=== PATIENT | female | born 1990 | race Caucasian/White ===

== ENCOUNTER → 2019-06-14 11:15 | Outpatient (CLI) | payer MEDICAID, SELFPAY ==
[2014-12-16 13:32] VITALS: BMI 33.0
[2019-06-16 03:09] LABS: AFP MoM Value 0.87 (.); AFP Value-EIA 21.4 ng/mL (.); Comment Report (.); DIA MoM Value 1.01 (.); DIA Value-EIA 143.87 pg/mL (.); DSR (By Age) 561 (.); DSR (Second Trimester) 5636 (.); Gestat. Age Based On As provided (.); Gestational Age 15.4 WEEKS (.); Insulin Dep Diabetes No (.); Maternal Age At EDD 31.6 yr (.); hCG MoM 0.66 (.); hCG Value 26588 mIU/mL (.)
== END ==
PROVIDERS: Family Provider Obstetrics & Gynecology; PCP Obstetrics & Gynecology; Visit Provider Obstetrics & Gynecology
DX: Z34.82 Encounter for supervision of other normal pregnancy, second trimester (principal)
CPT/HCPCS: 82105; 82677; 84702

== ENCOUNTER → 2019-09-13 10:23 | Outpatient (CLI) | payer MEDICAID, SELFPAY ==
[2019-09-13 11:09] LABS: Hematocrit 35.1 % (37-47); Hemoglobin 11.5 g/dL (12.0-15.0); Mean Corp Hgb Conc 32.8 g/dL (32-36); Mean Corpuscular Volume 88.6 fL (81-99); Mean Platelet Vol. 9.4 fl (6.2-12.0); Platelet Count 321 K/mm3 (150-450); RBC Distribution Width CV 13.2 % (11.6-14.6); RBC Distribution Width SD 43.1 fl (35.1-43.9); Red Blood Count 3.96 M/mm3 (4.2-5.4); White Blood Count 11.1 K/mm3 (4.4-11.0)
[2019-09-13 11:30] LABS: Glucose Challenge Gest 1H 50g 133 mg/dL (70-140); T4 Free Direct 0.88 ng/dL (0.76-1.46)
== END ==
PROVIDERS: PCP Obstetrics & Gynecology; Visit Provider Obstetrics & Gynecology
DX: Z34.83 Encounter for supervision of other normal pregnancy, third trimester (principal)
CPT/HCPCS: 36415; 82950; 84439; 84443; 85027; 86850

== ENCOUNTER → 2019-10-04 11:40 | Outpatient (CLI) | payer MEDICAID, SELFPAY ==
[2014-12-16 13:32] VITALS: BMI 33.0
[2019-10-04 12:51] LABS: Hematocrit 33.7 % (37-47); Hemoglobin 11.2 g/dL (12.0-15.0); Mean Corp Hgb Conc 33.2 g/dL (32-36); Mean Corpuscular Hgb 29.2 pg (27.0-32.0); Mean Corpuscular Volume 87.8 fL (81-99); Mean Platelet Vol. 9.3 fl (6.2-12.0); Platelet Count 322 K/mm3 (150-450); RBC Distribution Width SD 41.5 fl (35.1-43.9); Red Blood Count 3.84 M/mm3 (4.2-5.4); White Blood Count 11.8 K/mm3 (4.4-11.0)
[2019-10-04 13:32] LABS: ALB/GLOB Ratio 0.6 RATIO (0.9-2.4); AST(SGOT) 13 U/L (15-37); Alanine Aminotransfer ALT/SGPT 15 U/L (13-56); Albumin, Serum 2.4 g/dL (3.2-5.0); Alkaline Phosphatase 66 U/L (45-117); Anion Gap 8 (5-15); BUN 8 mg/dL (7-18); Calcium,Total 8.3 mg/dL (8.5-10.1); Chloride 110 mmol/L (98-107); EST Glomerular Filtration Rate 153 mL/min (>60); Est Glom Filt Rate - Afr Amer 185 mL/min (>60); Globulin 3.9 g/dL (2.2-4.2); Glucose 115 mg/dL (74-106); Potassium 3.6 mmol/L (3.5-5.1); Protein, Total 6.3 g/dL (6.4-8.2); Sodium Level 140 mmol/L (136-145); Uric Acid 4.4 mg/dL (2.6-6.0)
[2019-10-04 13:37] LABS: Protein, Urine (Random) 13.4 mg/dL (<11.9)
== END ==
PROVIDERS: PCP Obstetrics & Gynecology; Visit Provider Obstetrics & Gynecology
DX: O13.3 Gestational [pregnancy-induced] hypertension without significant proteinuria, third trimester (principal); Z3A.00 Weeks of gestation of pregnancy not specified
CPT/HCPCS: 36415; 80053; 82570; 84156; 84550; 85027

== ENCOUNTER → 2019-10-29 11:15 | Outpatient (CLI) | payer MEDICAID, SELFPAY ==
[2014-12-16 13:32] VITALS: BMI 33.0
== END ==
PROVIDERS: PCP Obstetrics & Gynecology; Referring Provider Obstetrics & Gynecology; Visit Provider Obstetrics & Gynecology
DX: Z36.85 Encounter for antenatal screening for Streptococcus B (principal)
CPT/HCPCS: 87081

== ENCOUNTER 2019-11-19 12:20 | Inpatient (IN) | payer MEDICAID, SELFPAY ==
[2014-12-16 13:32] VITALS: BMI 33.0
[2019-11-19] VITALS (13 sets, daily range): BP systolic 102–138; BP diastolic 38–85; PULSE 72–92; RESP 14–18; TEMP 36.1–36.8; O2SAT 95–99; BMI 42.3
[2019-11-19] MEDS: Lactated Ringers 1,000 ML 999 ML IV (13:33)
[2019-11-19 13:44] LABS: Absolute Lymphocyte Count 1.72 X10^3/uL (0.83-4.51); Absolute Neutrophil Count 8.5 X10^3/uL (2.0-7.7); Basophil# 0.02 X10^3/uL; Basophil% 0.2 % (0-1); Eosinophil# 0.08 X10^3/uL; Eosinophils% 0.7 % (0-5); Hematocrit 35.1 % (37-47); Hemoglobin 11.5 g/dL (12.0-15.0); Lymphocyte # 1.72 X10^3/ul (4.0); Lymphocyte % 15.8 % (19-41); Mean Corp Hgb Conc 32.8 g/dL (32-36); Mean Corpuscular Hgb 28.7 pg (27.0-32.0); Mean Corpuscular Volume 87.5 fL (81-99); Mean Platelet Vol. 9.3 fl (6.2-12.0); Monocyte# 0.51 X10^3/uL; Monocyte% 4.7 % (0-10); NRBC Flagged by Analyzer 0 % (0-5); Neutrophil # 8.51 X10^3/uL (2.7-7.7); Platelet Count 281 K/mm3 (150-450); RBC Distribution Width CV 13.3 % (11.6-14.6); RBC Distribution Width SD 42.2 fl (35.1-43.9); Red Blood Count 4.01 M/mm3 (4.2-5.4); White Blood Count 10.9 K/mm3 (4.4-11.0)
[2019-11-19] MEDS: Lactated Ringers 1,000 ML 150 ML IV (14:40)
[2019-11-19] MEDS: Sodium Citrate/Citric Acid 30 ML UDC PO (15:34)
[2019-11-19] MEDS: Cefazolin 2 GM in 0.9% Normal Saline 100 ML IV (15:41)
--- NOTE | 2019-11-19 15:59 | PCM.HP.OB ---
- Problem List (1) 39 weeks gestation of Status: Acute (2) Previous section Status: Acute History Date of Admission: 11/19/19 Final AMY: 11/24/19 Final AMY Source: [place] <20 weeks Gestational age: 39 Weeks and 2 Days History of this : This is a 29 year-old, G [3], P [2], at 39 2/7 weeks gestational age. Medical History: Medical History (Last Updated 11/19/19 @ 17:[address] Ora Hemphill MD) Hypothyroid E03.9 Tachycardia R00.0 EPISODIC Surgical History: Surgical History (Last Updated 11/19/19 @ 17:[address] Ora Hemphill MD) Previous section Z98.891 x 2 - 2014 Allergies Sulfa (Sulfonamide Antibiotics) Adverse Reaction (Verified 11/19/19 12:45) Swelling sulfamethoxazole [From Bactrim] Adverse Reaction (Verified 11/12/14 09:55) Nausea trimethoprim [From Bactrim] Adverse Reaction (Verified 11/12/14 09:55) Nausea Home Medications: Home Medications Vits [Prenatabs FA] 1 tablet PO DAILY 11/12/14 Levothyroxine [Synthroid] 50 mcg PO DAILY 11/19/19 Smoking Status: Never smoker Alcohol: None Number of Fetus(es): 1 NST - FHR Rate Baby A Baseline: 142 bpm History Past Pregnancies: Past Pregnancies Delivery Date GA/ Weeks Outcome Route Wt Infant Sex Labor Length Anesthesia Delivery Location FOB 06/2012 40 Living, failure to progress 7lb 12oz F 24 Epidural [facility] 10/2014 39 Living 7lb 1oz F 0 Spinal [facility] Labs: Mom's Problem List Problem Status Onset Code 39 weeks gestation of Acute Z3A.39 Previous section Acute Z98.891 Mom's Labs & Results 11/19/19 11/19/19 13:30 13:30 WBC 10.9 RBC 4.01 L Hgb 11.5 L Hct 35.1 L MCV 87.5 MCH 28.7 MCHC 32.8 RDW Std Deviation 42.2 RDW Coeff of Genaro 13.3 Plt Count 281 MPV 9.3 Immature Gran % (Auto) 0.600 Neut % (Auto) 78.0 H Lymph % (Auto) 15.8 L Kingsbury % (Auto) 4.7 Eos % (Auto) 0.7 Baso % (Auto) 0.2 Absolute Neuts (auto) 8.5 H Absolute Lymphs (auto) 1.72 Nucleated RBC % 0 Blood Type A NEGATIVE Antibody Screen NEGATIVE Course Did the patient receive Yes care? Labs Blood Type: A RH: NEGATIVE RPR/VDRL/Syphilis Nonreactive Rubella status Immune HbSAg Negative Date Done: 04/19/19 Chlamydia Negative Gonorrhea Negative HIV/AIDS Non-Reactive Group B Strep: Negative Current Obstetrical History Gestational Diabetes No Incompetent Cervix No Infertility Yes: clomid x2, letrozole x5 IUGR No Macrosomia No Hypertension/Pre-eclampsia No Placenta Previa/Abruption No PTL/PROM No Uterine anomaly No Oligohydramnios No Polyhydramnios No Multiple gestation No Past Medical History Asthma Yes: childhood Diabetes No Hypertension No Heart disease No: born with heart murmur-healed, random tachy episodes Mitral valve prolapse No Neurologic/Seizure disorder/ No Migraines Kidney disease No Liver disease No Varicosities No Clotting disorders/Hx of DVT No Thyroid Dysfunction Yes Other medical diseases No Psychiatric disorders No Major trauma No Abnormal PAP smear No Sleep apnea No Mammogram in the last 2 years No Social History Marital Status: Alleged father Kamari Hx Smoking No Smoking Status Never smoker Expected Delivery Method: Scheduled Section Number of Visits: 12 Review of Systems Constitutional: Denies: Chills, Fever Eyes: Denies: Vision Change HEENT: Denies: Head Aches, Sore Throat, Visual Changes Cardiovascular: Denies: Chest Pain Gynecological: Reports: - - Denies contractions, leaking of fluid or vaginal bleeding, Fetus is active Physical Exam Vitals: AVSS General: Alert, Oriented x3, Cooperative, No apparent distress HEENT: Atraumatic, Normocephalic Cardiovascular: Regular Rhythm Lungs: Normal air movement Abdomen: Soft, Non Tender, Non-Distended, Gravid, - - pannal edema Extremities:: No edema, Other - no calf tenderness DCS ENGINEER: Normal external genitalia Estimated gestational size: Appropriate for gestational size Presentation: Cephalic Assessment/Plan All Active Problems (Last Updated 11/19/19 @ 17:[address] Ora Hemphill MD) 39 weeks gestation of (Acute) Previous section (Acute) This is a 29 year-old, G [3], P [2], at 39 weeks gestational age. Proceed as planned with repeat section and incisional scar revision. BTL declined. Essential Procedure Criteria Procedure Essential: Yes Criteria Note: On 10/08/2019 the [facility] ([facility]) Public Order signed by [facility] Director Shruthi Carter M.D., regarding the Management of Non-Essential Surgeries and Procedures for the purpose of preserving Personal Protective Equipment (PPE) and critical hospital capacity and resources within [place] went into effect as of 10/09/2019 at 5:00PM. According to the [facility] Public Order: This action will remain in full force and effect until the State of Emergency declared by the Governor no longer exists or the Director of the [facility] rescinds or modifies this Order.. This [facility] order stated all non-essential or elective surgeries and procedures that utilize PPE should be delayed unless there is undue risk to the current or future health of a patient. After reviewing the aforementioned [facility] Public Order and the patients clinical case, I have determined that the scheduled procedure meets the criteria to go forward. Risk to Patient if Procedure Delayed: Threat to patient's life if surgery or procedure is delayed
--- NOTE | 2019-11-19 17:34 | PCM.OPRPT ---
Problem List (1) 39 weeks gestation of Status: Acute (2) Previous section Status: Acute Delivery Classification: Scheduled Final AMY: 11/24/19 Gestational age: 39 Weeks and 2 Days glueline worker: Kamila Coe Type of Anesthesia:: Spinal Date of Procedure: 11/19/19 Pre-Operative Diagnosis: 1. Prior section x 2. 2. Incisional scar stricture Post-Operative Diagnosis: 1. Prior section x 2. 2. Incisional scar stricture. 3. Intra-abdominal adhesions Indications: 29-year-old 3 para 2 admitted at 39-2/7 weeks gestational age for scheduled repeat section. Procedural risks, benefits, indications and alternatives were reviewed at length. The patient desired to proceed. She declined a bilateral tubal ligation. Indications for : Repeat Elective Description of Procedure: The patient was taken to the operating room and spinal analgesia was administered. She is placed in a dorsal supine position with left lateral tilt. Abdominal retraction system was applied and secured. Notably, the left incisional scar had retraction with indentation. The perineum and abdomen were prepped and draped in sterile fashion. And the spinal was found to be adequate. A Pfannenstiel incision was made using a scalpel and brought down to incise the subcutaneous tissue and rectus fascia at the midline. Subcutaneous tissue was bluntly dissected off the fascia laterally. The fascial incision was dissected laterally and cephalad using curved Frederick scissors. The superior leaflet of the rectus fascia was grasped using Bharti clamps and bluntly dissected and sharply dissected from the underlying rectus muscle. In a similar fashion the inferior rectus fascia was dissected from the underlying muscle. The rectus muscles were bluntly at the midline. The peritoneum was adhered to the anterior uterine serosa. These adhesions were dissected sharply and bluntly then the bladder blade was placed into the abdomen. The lower uterine segment was extremely thin palpation however without any window present. A low transverse hysterotomy was made using the [Metzenbaum scissors] to level of the membranes. The hysterotomy was extended bluntly cephalad and caudad. The membranes were then ruptured revealing clear fluid. The head was elevated and brought to the level of the hysterotomy and the delivered revealing vigorous [female] . The mouth and nares were bulb suctioned and the cord was doubly clamped and cut after 30 seconds. The infant was passed to awaiting [nursery personnel]. The placenta was [expressed] from the uterus and appeared intact on inspection. The uterus was cleared of debris. The hysterotomy was then repaired using 0 Vicryl running lock suture. Peritoneal adhesions to the right lateral uterus were further lysed sharply and blunty. A second imbricating non locked layer of 0 Vicryl was placed at the hysterectomy. Interceed was placed along the hysterotomy to prevent further adhesions. The bladder blade was removed. The anterior cul-de-sac was cleared of debris. The peritoneum and rectus muscles were reapproximated using 2-0 Vicryl running suture. The skin edge of the incision was grasped with Allis clamps and the retracted skin excised. The underlying scarred subcutaneous tissue and fascia was blunty and sharply dissected to restore anatomy with resection of densely fibrotic tissue. Oh strata fix was used to initially repair the fascia however the fascial integrity was insufficient to hold the initial pull of the strata fix suture. The fascia was subsequently closed successfully using #1 looped PDS. Capillary bleeding was controlled using the Bovie. The subcutaneous tissue was closed using 2-0 Vicryl running lock suture. The skin was reapproximated using 4-0 Monocryl by the [employer] under my supervision. A Mepilex silver occlusive dressing was placed over the incision. The fundus was firm. The patient was then transferred to the recovery room without complication. Sponge, instrument, and needle counts were correct ?2. Amniotic Membrane Rupture Type: Artificial Amniotic Fluid Description: Clear Placenta Disposition: [facility] Drain: Hernandez to straight drain Fluids Replaced: 1500 ml Cord Entanglement: Around neck x 1, loose Nuchal Cord Compression: Without compression Cord Vessel Description: 3 Vessels Gender: Female (1 minute): 9 (5 minute): 9 Delayed cord clamping: Yes Antibiotic Given: Ancef 2 grams IV x1 Pt instructed on risks of surgery: Bleeding, Anesthesia Risks, Need for Future C-Sections, Injury to surrounding structure(s) including bowel and bladder Complications: None - Admit VTE Documentation VTE Present on Admission: No VTE Mechan Device Prophylaxis: SCD's VTE Pharm Prophylaxis ordered?: Yes
[2019-11-19] MEDS: Oxytocin 30 units/NS 500 ml 30 UNITS/500 ML IV.SOLN 167 UNITS IV (17:39)
--- NOTE | 2019-11-19 19:17 | NURSING ---
per bedside report, this RN to draw rhogam workup in AM with CBC d/t pt being extremely difficult stick. rim fire charger operator aware of this and okay to do so.
[2019-11-19] MEDS: Lactated Ringers 1,000 ML 100 ML IV (20:39)
--- NOTE | 2019-11-19 21:57 | NURSING ---
pt able to get out of bed with assistance of this rn. pt marched in place at bedside, standing for a few minutes. pt tolerated well.
[2019-11-19] MEDS: 0.9% Saline Lock 10 ML Syringe IV (22:03)
[2019-11-19] MEDS: Heparin Injection (Vial) 5,000 UNIT/ML VIAL 5000 UNIT SC (22:03)
[2019-11-19] MEDS: Ketorolac 30 MG/ML Syringe IV (22:03)
[2019-11-19] MEDS: Cefazolin 1 GM/50 ML BAG IV (23:50)
[2019-11-20] VITALS (14 sets, daily range): BP systolic 104–124; BP diastolic 63–72; PULSE 79–104; RESP 14–19; TEMP 36.6–36.8; O2SAT 95–100
[2019-11-20] MEDS: 0.9% Saline Lock 10 ML Syringe IV ×4 (03:47→10:28)
[2019-11-20] MEDS: Ketorolac 30 MG/ML Syringe IV ×2 (03:47→10:28)
[2019-11-20 06:06] LABS: Hematocrit 32.9 % (37-47); Hemoglobin 10.8 g/dL (12.0-15.0); Mean Corp Hgb Conc 32.8 g/dL (32-36); Mean Corpuscular Hgb 28.4 pg (27.0-32.0); Mean Corpuscular Volume 86.6 fL (81-99); Mean Platelet Vol. 9.1 fl (6.2-12.0); Platelet Count 238 K/mm3 (150-450); RBC Distribution Width CV 13.3 % (11.6-14.6); RBC Distribution Width SD 41.3 fl (35.1-43.9); White Blood Count 11.6 K/mm3 (4.4-11.0)
[2019-11-20] MEDS: Heparin Injection (Vial) 5,000 UNIT/ML VIAL 5000 UNIT SC ×3 (06:24→22:37)
[2019-11-20] MEDS: Levothyroxine 50 MCG Tablet PO (06:25)
[2019-11-20] MEDS: Prenatal Vits Tablet 1 TABLET PO (07:51)
[2019-11-20] MEDS: Cefazolin 1 GM/50 ML BAG IV (07:58)
--- NOTE | 2019-11-20 13:00 | PN.OBGYN_ITS ---
Patient Problems: Active and Suspected Problems (Last Updated 11/19/19 @ 17:[address] Ora Hemphill MD) 39 weeks gestation of (Acute) Previous section (Acute) Subjective: Usha is sore today, but pain manageable. She is out of bed, ambulating and voiding without difficulty. No nausea, tolerates PO. No flatus yet. She would like to go home tomorrow first thing in the morning. She denies heavy lochia. latched early yesterday and continues to nurse well. Usha has questions about scar tissue noted during and future related risks. Objective: AVSS - Physical Exam Vitals/I&O's: Vital Signs Temp Pulse Resp BP Pulse Ox 98.2 F 101 H 16 124/70 H 97 11/20/19 16:00 11/20/19 16:00 11/20/19 16:00 11/20/19 16:00 11/20/19 16:00 Oxygen Delivery Method Room Air Weight: 111.8 kg Body Mass Index (BMI) 42.3 Intake and Output for Last 24 Hours 11/18/19 11/19/19 11/20/19 23:59 23:59 23:59 Intake Total 2562.5 / 2562.5 1613.33 / 1613.33 Output Total 450 / 450 1200 / 1200 Balance 2112.5 / 2112.5 413.33 / 413.33 General: Alert, Oriented x3, Cooperative, No apparent distress HEENT: Atraumatic, Normocephalic Lungs: Normal air movement Cardiovascular: Regular rate, Regular Rhythm Abdomen: Soft, Non Tender, Non-Distended, - - Fundus firm and nontender at umbilicus, incisional dressing c/d/i, lochia scant Extremities: No Calf Tenderness, - - trace LE edema bilaterally Neurological: Neuro grossly intact Psych/Mental Status: Normal Affect, Appropriate, Alert and oriented to time, place, person, mood and affect Laboratory Results 11/20/19 05:55: WBC 11.6 H, RBC 3.80 L, Hgb 10.8 L, Hct 32.9 L, MCV 86.6, MCH 28.4, MCHC 32.8, RDW Std Deviation 41.3, RDW Coeff of Genaro 13.3, Plt Count 238, MPV 9.1 11/20/19 05:55: Screen NEGATIVE, Baby's Blood Type A POSITIVE, Baby's JESSICA NEGATIVE Current Medications Acetaminophen (Tylenol) 1,000 mg PO Q8H PRN PRN Reason: Pain Score 1-3/10 Last Admin: 11/20/19 14:41 Dose: 1,000 mg Documented by: Bisacodyl (Dulcolax) 10 mg RECTAL UD PRN PRN Reason: If no BM Heparin Sodium (Porcine) (Heparin Na) 5,000 unit SC Q8 TAE Last Admin: 11/20/19 14:32 Dose: 5,000 unit Documented by: Hydrocortisone (Hytone) 1 applic TOPICAL TID PRN PRN; Protocol PRN Reason: Discomfort Naloxone HCl 4 mg/ Dextrose 504 mls @ 0 mls/hr IV .Q0M PRN; Protocol PRN Reason: Respiratory depression Ibuprofen (Motrin) 600 mg PO Q6H PRN PRN PRN Reason: Pain Score 1-3/10 Last Admin: 11/20/19 16:51 Dose: 600 mg Documented by: Levothyroxine Sodium (Synthroid) 50 mcg PO DAILY@0600 TAE Last Admin: 11/20/19 06:25 Dose: 50 mcg Documented by: Methylergonovine Maleate (Methergine) 0.2 mg IM X1 PRN PRN Reason: Uterine Atony Naloxone HCl (Narcan) 0.02 mg IV Q1M PRN PRN Reason: RR <10 and pt unresponsive Ondansetron HCl (Zofran) 4 mg IV Q8H PRN PRN PRN Reason: NAUSEA Oxycodone HCl (Oxyir) 5 - 10 mg PO Q4H PRN PRN PRN Reason: Pain Score 4-10/10 Multivit/Folic Acid/Iron (Prenatabs Fa) 1 tablet PO DAILY@1200 TAE Last Admin: 11/20/19 07:51 Dose: 1 tablet Documented by: Prochlorperazine Edisylate (Compazine Iv) 10 mg IV Q6H PRN PRN PRN Reason: NAUSEA Senna/Docusate Sodium (Senokot-S, Elvi-Colace) 0 tablet PO DAILY PRN PRN Reason: Constipation Last Admin: 11/20/19 14:41 Dose: 2 tablet Documented by: Simethicone (Mylicon) 80 mg PO PCHS PRN PRN Reason: Indigestion/stomach pain Sodium Chloride () 5 - 15 ml IV UD PRN PRN Reason: SALINE FLUSH Last Admin: 11/20/19 10:28 Dose: 10 ml Documented by: Medical Necessity - Tobacco Use Smoking Status: Never smoker Assessment/Plan All Active Problems (Last Updated 11/19/19 @ 17:[address] Ora Hemphill MD) 39 weeks gestation of (Acute) Previous section (Acute) This is a 29 year-old, G [3], P [3], POD#1 s/p RLTCS with adhesiolysis doing well. -Rh negative, Rh pos - Rhogam ordered -Routine postop care -Reviewed intra-abdominal findings. Discussed overall low, but increased risk f or complications should labor occur including uterine window or rupture, risk for bladder injury associated with repeat section. I encouraged her to avoid , at least for 18 months to ensure adequate healing of scar and if has any future consider 36 week US to evaluate prior C- section scar as it was extremely thin at time of entry and increased risk for uterine window with repeat section. Pt understands that due to scar tissue there is increased risk for abdominal viscus injury, hysterectomy if emergent section needed. She will consider further. - -Anticipate d/c home in am
[2019-11-20] MEDS: Acetaminophen 500 MG Tablet 1000 MG PO ×2 (14:41→22:37)
[2019-11-20] MEDS: Senna/Docusate Sodium 1 Tablet PO (14:41)
[2019-11-20] MEDS: Ibuprofen 600 MG Tablet PO ×2 (16:51→23:17)
--- NOTE | 2019-11-20 18:43 | PCM.DCCSEC ---
Discharge Diet: No Restrictions Discharge Activity: Return to Normal Activity, May not drive while taking narcotic pain medications., May Shower, - - No tub bath for 2 weeks May resume sexual activity in: 4-6 weeks Lifting Restrictions: 10-20lb Call your doctor if your incision/area has: Continuous Slow Oozing, Sudden Increased Bleeding, Increased Pain/ Swelling, Increased Redness, Foul Smelling Discharge Call your doctor if you observe: Fever of 101 or Higher, Inability to urinate, Inability to have a bowel movement, Using more than one pad per hour, Shortness of breath, Chest pain, Calf discomfort, Uncontrolled pain Suture Line Care: Avoid Pulling/Pushing Remove Dressing in (days):: 3 Cleanse incision/area with: Soap & Water Additional Instructions: If you experience any of the following, contact your healthcare provider. Bleeding that soaks a pad every hour for 2 hours Fever 100.4 or higher Unrelieved incision or abdominal pain Swelling, redness, discharge or bleeding from your incision or episiotomy site Your incision begins to separate Problems urinating (including inability to urinate or burning while urinating). Visual changes Severe headache Flu-like symptoms Pain or redness in one of both of your breasts Pain, warmth, tenderness or swelling in your legs, especially the calf area Frequent nausea and vomiting Symptoms of depression or anxiety If you experience any of the following, call 911 or go to the nearest Emergency Room. Chest pain Problems breathing Seizure activity Partial or complete paralysis of a body part, slurred speech, weakness or drooping of the face, or a sudden inability to walk or hold your balance Allergies/Adverse Reactions: Allergies Sulfa (Sulfonamide Antibiotics) Adverse Reaction (Verified 11/19/19 12:45) Swelling sulfamethoxazole [From Bactrim] Adverse Reaction (Verified 11/12/14 09:55) Nausea trimethoprim [From Bactrim] Adverse Reaction (Verified 11/12/14 09:55) Nausea Medications to take at Discharge RX: Vits [Prenatabs FA ] 1 tablet PO DAILY 11/12/14 RX: Levothyroxine [Synthroid] 50 mcg PO DAILY 11/19/19 Oxycodone [Oxyir] 5 mg PO Q4H PRN PRN 4 Days #16 tab 11/20/19 RX: Ibuprofen [Motrin] 600 mg PO TID PRN #30 tab 11/20/19 RX: Oxycodone [Oxyir] 1 tab PO Q6H PRN PRN 7 Days #16 tab 11/20/19 The following prescriptions were given: RX: Ibuprofen [Motrin] 600 mg PO TID PRN #30 tab PRN Reason: Pain Score 1-10/10 Transmission Status: Sent to [id number] Oxycodone [Oxyir] 5 mg PO Q4H PRN PRN 4 Days #16 tab PRN Reason: Pain Score 6-10/10 Transmission Status: Received by [id number] RX: Oxycodone [Oxyir] 1 tab PO Q6H PRN PRN 7 Days #16 tab PRN Reason: Pain Score 4-10/10 Prescription Printed Follow-Up: Call to make an appointment with your doctor for an incision check in 1-2 weeks. You will also need a 6 week post- follow up appointment. Test results from this visit will be discussed in further detail at your follow-up appointment, if applicable. Please Follow Up With: Ora Hemphill MD When: 1-2 weeks for incision check Please Follow Up With: Ora Hemphill MD When: 6 weeks for visit Primary Care Physician: Gayla Navarro PA [Primary Care Provider] -
[2019-11-21 01:20] VITALS: BP 119/68; PULSE 91; RESP 18; TEMP 36.6
[2019-11-21] MEDS: Heparin Injection (Vial) 5,000 UNIT/ML VIAL 5000 UNIT SC (05:23)
[2019-11-21] MEDS: Levothyroxine 50 MCG Tablet PO (05:23)
[2019-11-21] MEDS: Ibuprofen 600 MG Tablet PO (05:23)
[2019-11-21] MEDS: oxyCODONE 5 MG Tablet PO ×2 (05:50→10:07)
[2019-11-21 08:09] VITALS: BP 114/68; PULSE 94; RESP 18; TEMP 36.7; O2SAT 95
--- NOTE | 2019-11-21 09:12 | PCM.PN.OB ---
Patient Problems: Active and Suspected Problems (Last Updated 11/19/19 @ 17:[address] Ora Hemphill MD) 39 weeks gestation of (Acute) Previous section (Acute) Subjective: Feeling a lot better today and has been out of bed. States that her abdominal binder is really helping. Was taking just Motrin, but needed one [place] this AM and wants some for discharge. with no difficulty. Denies heavy bleeding or pain. Objective: VSS. Fundus, firm, midline, u/2. well. - Physical Exam Vitals/I&O's: Vital Signs Temp Pulse Resp BP Pulse Ox 98.1 F 94 18 114/68 95 11/21/19 08:09 11/21/19 08:09 11/21/19 08:09 11/21/19 08:09 11/21/19 08:09 Oxygen Delivery Method Room Air Weight: 111.8 kg Body Mass Index (BMI) 42.3 Intake and Output for Last 24 Hours 11/19/19 11/20/19 11/21/19 23:59 23:59 23:59 Intake Total 2562.5 / 2562.5 1613.33 / 1613.33 Output Total 450 / 450 1200 / 1200 Balance 2112.5 / 2112.5 413.33 / 413.33 General: Alert, Oriented x3, Cooperative HEENT: Atraumatic, PERRLA, EOMI, Normocephalic Neck: Supple, No JVD, Negative Carotid Bruits Lungs: Clear to auscultation, Normal air movement Cardiovascular: Regular rate, No murmurs Abdomen: Bowel Sounds Present, Soft, Non Tender, - - Mepilex dressing in place CDI, fundus u/2 Extremities: No edema, Capillary Refill Less than 3 Seconds Skin: No rashes, No breakdown Musculoskeletal: No Tenderness to Palpation of Joints or Extremities Neurological: Cranial nerves II-XII grossly intact Psych/Mental Status: Normal Affect, Appropriate Current Medications Acetaminophen (Tylenol) 1,000 mg PO Q8H PRN PRN Reason: Pain Score 1-3/10 Last Admin: 11/20/19 22:37 Dose: 1,000 mg Documented by: Bisacodyl (Dulcolax) 10 mg RECTAL UD PRN PRN Reason: If no BM Heparin Sodium (Porcine) (Heparin Na) 5,000 unit SC Q8 TAE Last Admin: 11/21/19 05:23 Dose: 5,000 unit Documented by: Hydrocortisone (Hytone) 1 applic TOPICAL TID PRN PRN; Protocol PRN Reason: Discomfort Naloxone HCl 4 mg/ Dextrose 504 mls @ 0 mls/hr IV .Q0M PRN; Protocol PRN Reason: Respiratory depression Ibuprofen (Motrin) 600 mg PO Q6H PRN PRN PRN Reason: Pain Score 1-3/10 Last Admin: 11/21/19 05:23 Dose: 600 mg Documented by: Levothyroxine Sodium (Synthroid) 50 mcg PO DAILY@0600 [facility] Last Admin: 11/21/19 05:23 Dose: 50 mcg Documented by: Methylergonovine Maleate (Methergine) 0.2 mg IM X1 PRN PRN Reason: Uterine Atony Naloxone HCl (Narcan) 0.02 mg IV Q1M PRN PRN Reason: RR <10 and pt unresponsive Ondansetron HCl (Zofran) 4 mg IV Q8H PRN PRN PRN Reason: NAUSEA Oxycodone HCl (Oxyir) 5 - 10 mg PO Q4H PRN PRN PRN Reason: Pain Score 4-10/10 Last Admin: 11/21/19 05:50 Dose: 5 mg Documented by: Multivit/Folic Acid/Iron (Prenatabs Fa) 1 tablet PO DAILY@1200 [facility] Last Admin: 11/20/19 07:51 Dose: 1 tablet Documented by: Prochlorperazine Edisylate (Compazine Iv) 10 mg IV Q6H PRN PRN PRN Reason: NAUSEA Senna/Docusate Sodium (Senokot-S, Elvi-Colace) 0 tablet PO DAILY PRN PRN Reason: Constipation Last Admin: 11/20/19 14:41 Dose: 2 tablet Documented by: Simethicone (Mylicon) 80 mg PO PCHS PRN PRN Reason: Indigestion/stomach pain Sodium Chloride () 5 - 15 ml IV UD PRN PRN Reason: SALINE FLUSH Last Admin: 11/20/19 10:28 Dose: 10 ml Documented by: Medical Necessity - Tobacco Use Smoking Status: Never smoker Assessment/Plan All Active Problems (Last Updated 11/19/19 @ 17:[address] Ora Hemphill MD) 39 weeks gestation of (Acute) Previous section (Acute) A/P POD #2 Repeat Csection well Normal involution and course To continue abdominal binder use Discharge home today Instructed to remove dressing at home on day 5-7 and make sure she has an incision check in 1-2 weeks with WILLY
[2019-11-21] MEDS: Acetaminophen 500 MG Tablet 1000 MG PO (09:38)
== END 2019-11-21 10:20 | disposition home or self-care (01) | DRG 540 ==
PROVIDERS: Admitting Provider Obstetrics & Gynecology; PCP Physician Assistant; Visit Provider Obstetrics & Gynecology
PROC: 10D00Z1 Extraction of Products of Conception, Low, Open Approach (ICD-10-PCS; CPT 59514; principal; 2019-11-19 11:45)
DX: O34.219 Maternal care for unspecified type scar from previous cesarean delivery (principal); O69.81X0 Labor and delivery complicated by cord around neck, without compression, not applicable or unspecified; O99.284 Endocrine, nutritional and metabolic diseases complicating childbirth; E03.9 Hypothyroidism, unspecified; Z79.899 Other long term (current) drug therapy; Z3A.39 39 weeks gestation of pregnancy; Z37.0 Single live birth
CPT/HCPCS: 36415; 85025; 85027; 85461; 86850; 86900; 86901; 90384; 99218; J7120; A4216; G0378; J2405; J2790

== ENCOUNTER → 2019-12-27 11:53 | Outpatient (CLI) | payer MEDICAID, SELFPAY ==
[2019-11-19 12:41] VITALS: BMI 42.3
[2019-12-27 14:16] LABS: Free T3 2.9 pg/mL (2.18-3.98); T4 Free Direct 0.94 ng/dL (0.76-1.46); Thyroid Stim Hormone (TSH) 1.29 uIU/mL (0.358-3.74)
== END ==
PROVIDERS: PCP Physician Assistant; Visit Provider Obstetrics & Gynecology
DX: E03.9 Hypothyroidism, unspecified (principal)
CPT/HCPCS: 36415; 84439; 84443; 84481

== ENCOUNTER → 2020-07-07 | Outpatient (CLI) | payer MEDICAID, SELFPAY ==
[2019-11-19 12:41] VITALS: BMI 42.3
[2020-07-10 20:37] LABS: HPV APTIMA, High Risk Negative (Negative)
== END | disposition home or self-care (01) ==
LOC: LABSPEC 16:49
PROVIDERS: PCP Physician Assistant; Visit Provider Obstetrics & Gynecology
DX: Z12.4 Encounter for screening for malignant neoplasm of cervix (principal)
CPT/HCPCS: 87624; 88175; G0145

== ENCOUNTER 2020-09-21 15:00 | Outpatient (RCR) | payer MEDICAID, SELFPAY ==
[2019-11-19 12:41] VITALS: BMI 42.3
--- NOTE | 2020-07-29 16:04 | HP.PTEVAL_ITS ---
Patient's Visit Information CARSON VALDIVIA is a 30 year old F referred to Physical Therapy by Dr. Ora Velez MD with a diagnosis of WEAKNING POST SECTION. Date of Evaluation: 07/29/20 Physical Therapist: Devan Bush, PT, Cert MDT, OCS - Visit Plan Frequency: 1x/Week Duration: 4 Weeks Plan: PT INTERVENTION DLS ABD/BACK STRENGTHENING ,POSTURAL EX'S,ENDURANCE TRAINING, - Subjective This 30 y/o female presents to physical therapy with weakening post section. Patien after last pregnacy November 18 after . After heeling noticed weakness of abdominals and some back pain. Patient seen DR who recommended PT and want to start working out. Aggraveting factors walking with baby care 2-3 miles ,lifting,AM back will be sore. Patient alleviating factors rest . Patient has difficulty sleeping. Coughing/sneezing-. Bowel/bladder-. Denies parathesia/tingling. Patient condtion affects housework tasks and ADLS'. Patient major problem is weakness in core. SOCIAL: 3 children. VOCATION: home - Pain Bilateral Back Pain Intensity (Out of 10): 5 Comment: abdominals - Objective POSTURE: mild foward posture. GAIT: reciprocal pattern. NEURO: intact. PALPATION: unremarkable. SYMMTRIES: align. LUMBAR ROM: EXTENSION WNL EXCESSIVE ,FLEXION MIN LOSS ,EXTENSION MIN LOSS. MMT: QUADS/HAMS 4/5,HIP FLEXION 4- /5,ANKLE 5/5. FLEXABILITY: hams WFL. ABOMINAL ENDURANCE: unable - Special Tests L/S Slump test left side: Negative L/S Slump test right side: Negative L/S Left Straight Leg Raise: Negative L/S Right Straight Leg Raise: Negative Lumbar Standing: Flexion - Mechanical Response: No effect Lumbar Standing: Flexion - Symptoms During Testing: No effect Lumbar Standing: Flexion - Symptoms After Testing: No effect Lumbar Standing: Extension - Mechanical Response: No effect Lumbar Standing: Extension - Symptoms During Testing: No effect Lumbar Standing: Extension - Symptoms After Testing: No effect Lumbar Standing: Right Side Glides - Mechanical Response: No effect Lumbar Standing: Right Side Hecker - Symptoms During Testing: No effect Lumbar Standing: Right Side Hecker - Symptoms After Testing: No effect Lumbar Standing: Left Side Hecker - Mechanical Response: No effect Lumbar Standing: Left Side Hecker - Symptoms During Testing: No effect Lumbar Standing: Left Side Hecker - Symptoms After Testing: No effect - Goals Goal 1:: Patient to be I with HEP. Goal Time Frame: 4-6 Weeks Goal 2:: Patient improve posture for ADLS' 80% of the time. Goal Time Frame: 4-6 Weeks Goal 3:: Patient decrease back pain by 50 % or > to improve function and QOL. Goal Time Frame: 4-6 Weeks Goal 4:: Patient to increase abdominal endurance to improve function with housework and lifting Goal Time Frame: 4-6 Weeks Goal 5:: Patient to improve BACK owestry score by 5 points or> to improve QOL. - Rehabilitation Potential Physical Therapy Diagnosis: This patient has weaken core muscles from pregnacy from causing pain lumbar poor abbominal strength impairs ADL's and housework tasks Rehabilitation Potential: Good - Anticipated Interventions Patient/Client Instruction: Educate patient on: Condition, Plan of Care For the Purpose of:: To decrease pain, To improve muscle performance and motor function, To improve ability to perform ADL's, To increase tolerance to activity/condition/position, To improve ability of physical actions for home/community/work/leisure, To improve health of tissue, To decrease soft tissue restriction, To increase flexibility/ROM, To improve endurance, To assume or resume ADL's, To reduce risk of recurrence, To improve ability to perform tasks related to life management Therapeutic Exercise to Include: Strength training, Body mechanics, Postural training, Flexibilty training, Dynamic Lumbar Stabilization For the Purpose of:: To decrease pain, To increase ROM, To improve muscle performance and motor function, To improve ability to perform ADL's, To increase tolerance to activity/condition/position, To improve performance and independence with ADL's, To improve ability of physical actions for home/community/work/leisure, To improve health of tissue, To decrease soft tissue restriction, To improve endurance, To improve ability to perform tasks related to life management Thank you for the opportunity to evaluate your patient. For Medicare and Medicare HMO plans, please review the plan of care and approve it. It will need to be FAXED BACK to us at [phone] for Medicare purposes. For Medicare only, by signing this I certify the plan of care. Please let me know if there are questions or concerns regarding this plan of care. Physician Signature: Date:
--- NOTE | 2021-01-27 11:49 | HP.PTDCNRP_ITS ---
CARSON VALDIVIA was seen in my office for initial evaluation on 07/29/20. The following Plan of Care was established for this patient: Initial Frequency: 1x/Week Initial Duration: 4 Weeks Patient/Client Instruction: Educate patient on: Condition, Plan of Care For the Purpose of:: To decrease pain, To improve muscle performance and motor function, To improve ability to perform ADL's, To increase tolerance to activity/condition/position, To improve ability of physical actions for h ome/community/work/leisure, To improve health of tissue, To decrease soft tissue restriction, To increase flexibility/ROM, To improve endurance, To assume or resume ADL's, To reduce risk of recurrence, To improve ability to perform tasks related to life management Therapeutic Exercise to Include: Strength training, Body mechanics, Postural training, Flexibilty training, Dynamic Lumbar Stabilization For the Purpose of:: To decrease pain, To increase ROM, To improve muscle performance and motor function, To improve ability to perform ADL's, To increase tolerance to activity/condition/position, To improve performance and independence with ADL's, To improve ability of physical actions for home/community/work/leisure, To improve health of tissue, To decrease soft tissue restriction, To improve endurance, To improve ability to perform tasks related to life management This patient was last seen in our office . Pertinent comments regarding their Physical therapy will appear below: Patient seeing for PT for DLS and core strengthening thus is d/c. Doing well with HEP At this point I will be discontinuing this patient from physical therapy. I would be happy to see this patient again in the future if found appropriate by the physician. Thank you! Devan Bush, PT, Cert MDT, OCS
== END 2020-09-21 19:00 | disposition home or self-care (01) ==
LOC: PT 15:00
PROVIDERS: PCP Physician Assistant; Referring Provider Obstetrics & Gynecology; Visit Provider Obstetrics & Gynecology
DX: M62.08 Separation of muscle (nontraumatic), other site (principal)
CPT/HCPCS: 97110; 97161

== ENCOUNTER 2021-08-06 10:25 | Outpatient (CLI) | payer MEDICAID, SELFPAY ==
[2021-08-06 11:53] LABS: Free T3 2.8 pg/mL (2.18-3.98); T4 Free Direct 0.93 ng/dL (0.76-1.46); Thyroid Stim Hormone (TSH) 2.25 uIU/mL (0.358-3.74)
== END 2021-08-06 23:59 | disposition short-term general hospital (02) ==
PROVIDERS: PCP Physician Assistant; Visit Provider Obstetrics & Gynecology
DX: E03.9 Hypothyroidism, unspecified (principal)
CPT/HCPCS: 36415; 84439; 84443; 84481

== ENCOUNTER 2021-09-07 17:29 | Outpatient (CLI) | payer MEDICAID, SELFPAY ==
[2021-09-13 17:58] LABS: HPV APTIMA, High Risk Negative (Negative)
== END 2021-09-07 23:59 | disposition home or self-care (01) ==
LOC: LABSPEC 17:30
PROVIDERS: PCP Physician Assistant; Visit Provider Obstetrics & Gynecology
DX: Z12.4 Encounter for screening for malignant neoplasm of cervix (principal)
CPT/HCPCS: 87624; 88175; G0145

== ENCOUNTER 2021-10-05 11:36 | Outpatient (CLI) | payer MEDICAID, SELFPAY ==
[2021-10-05 13:48] LABS: Insulin 15.3 mU/L (2.6-37.6); Progesterone Level 0.64 ng/mL (See Comment)
[2021-10-05 13:50] LABS: Estradiol 43.8 pg/mL; Glucose 95 mg/dL (74-106); Prolactin 7.2 ng/mL
[2021-10-13 17:26] LABS: Anti-Mullerian Hormone,Serum 9.83 ng/mL (.); Sex Hormone-binding Globulin 24.4 nmol/L (24.6-122.0)
== END 2021-10-05 23:59 | disposition home or self-care (01) ==
LOC: WOBLAB 11:36
PROVIDERS: PCP Physician Assistant; Visit Provider Obstetrics & Gynecology
DX: N93.9 Abnormal uterine and vaginal bleeding, unspecified (principal); E28.8 Other ovarian dysfunction
CPT/HCPCS: 36415; 82670; 82947; 83516; 83525; 84144; 84146; 84270

== ENCOUNTER 2021-10-27 14:21 | Outpatient (CLI) | payer MEDICAID, SELFPAY ==
--- NOTE | 2021-10-27 12:00 | EMB_PTH ---
PATIENT: CARSON VALDIVIA LOC: [facility] U#:[id number] AGE/SX: 31/F ROOM: RE10/27/[address]: Dr. Ora Velez MD : 1990 BED: DIS: 10/27/2021 SPEC #: [id number] RECD: 10/27/21 14:45 STATUS: AILYN REFlavio #: [id number] TU: 10/27/21 12:[address]: Ora Pinto DEPT: SURGICAL PATHOLOGY RECD BY: Bella Storey ENTERED: 10/28/21 08:56 SP TYPE: ENDOM BX/C RENATO DR: ANA Gonzalez Tissues: Endometrium, NOS Procedures: Surgery Specimen Level IV HEADER OPERATION: Endometrial biopsy PRE-OP DIAGNOSIS: Irregular menses TISSUE SUBMITTED: Endometrial biopsy MICROSCOPIC DIAGNOSIS Endometrial biopsy: Proliferative endometrium. SJ:jay 10/29/2021 MICROSCOPIC DESCRIPTION Slides are reviewed. GROSS DESCRIPTION Received in fixative is one container labeled with the patient's name and designated endometrial biopsy. The specimen consists of multiple fragments of hemorrhagic soft tissue that in aggregate measure 3 x 2.5 x 0.2 cm. The specimen is totally submitted in one cassette. / SJ:jay 10/28/2021 TC:4 CPT: 24747
== END 2021-10-27 23:59 | disposition home or self-care (01) ==
LOC: LABSPEC 14:22
PROVIDERS: PCP Physician Assistant; Visit Provider Obstetrics & Gynecology
DX: N92.6 Irregular menstruation, unspecified (principal)
CPT/HCPCS: 88305

== ENCOUNTER → 2022-06-22 | Outpatient (CLI) | payer MEDICAID, SELFPAY ==
[2022-06-22 13:38] LABS: T4 Free Direct 0.93 ng/dL (0.76-1.46); Thyroid Stim Hormone (TSH) 2.75 uIU/mL (0.358-3.74)
== END | disposition home or self-care (01) ==
LOC: WOBLAB 12:04
PROVIDERS: PCP Physician Assistant; Visit Provider Student in an Organized Health Care Education/Training Program
DX: E03.9 Hypothyroidism, unspecified (principal)
CPT/HCPCS: 36415; 84439; 84443

== ENCOUNTER 2024-07-16 05:11 | Day surgery (SDC) | payer MEDICAID, SELFPAY ==
[2024-07-16] VITALS (7 sets, daily range): BP systolic 105–136; BP diastolic 46–80; PULSE 94–104; RESP 16–20; TEMP 36.1–37.3; O2SAT 91–100; BMI 40.2
--- NOTE | 2024-07-16 | IMM_PTH ---
PATIENT: CARSON VALDIVIA LOC: [facility] U#:[id number] AGE/SX: 34/F ROOM: RE07/16/[address]: Dr. Denver Flores DO : 1990 BED: DIS: 07/16/2024 SPEC #: [id number] RECD: 07/16/24 13:35 STATUS: AILYN REFlavio #: [id number] TU: 07/16/24 00:[address]: Denver Flores DEPT: IMMUNOHISTOCHEMISTRY RECD BY: Gale Brooks ENTERED: 07/16/24 13:35 SP TYPE: IMMUNO OTHR DR: ANA Gonzalez Tissues: Gastric mucous membrane Procedures: H Pylori (initial) PHYSICIAN & INSTITUTION [place] [address] SPECIMEN INFORMATION: Tissue Source: B. Gastric antrum Clinical Info: Gastroesophageal reflux disease Specimen Number: [id number] CPT code: 44091 METHODOLOGY: Deparaffinized sections of prefer/formalin-fixed tissue or PAP/DQ stained slides are incubated with monoclonal/polyclonal antibodies/oligonucleotide probes. Localization is made via biotin free immunoperoxidase method. Appropriate controls are performed and reacted as expected. Results on target cell population are indicated in the following table: RESULTS: ANTIBODY / CLONE RESULT H Pylori (polyclonal) negative These tests were developed and their performance characteristics determined by [facility]. They may not have been cleared or approved by the U.S. Food and Drug Administration. The FDA has determined that such clearance or approval is not necessary. The above immunohistochemical/dualISH markers are ordered and reviewed by the Pathologist. INTERPRETATION: B. Gastric antrum, biopsy: Negative for Helicobacter pylori organisms. JS:julio 07/18/24
[2024-07-16 05:52] LABS: Internal QC Validated? YES +Cl - CLEAR BKGD; Pregnancy, Urine Negative Negative
--- NOTE | 2024-07-16 06:26 | PCM.PRE.AN2 ---
ASA Classification* ASA Classification ASA Classification: 3 (BMI) Assessment & Plan Anesthesia* Anesthesia Assessment Anesthesia Assessment: Discussed sedation and/or anesthesia options, risks, benefits, and alternatives with patient/parents/legal guardian/POA. Questions invited. The patient/parents/legal guardian/POA seems to understand and agrees to proceed with anesthesia plan. Reviewed the physical assessment, medical history, allergy history and patient home medications list prior to surgery/procedure/anesthetic and documented any changes. Performed airway and anesthesia risk assessments. Anesthesia Type Anesthesia Type: MAC History Source History Obtained from:: Patient and Chart Anesthesia Focused Assessment* Temperature: 99.1 F Pulse Rate: 98 Blood Pressure: 136/80 Respiratory Rate: 16 Pulse Ox: 100 Airway Assessment Mouth opens: >3 cm Mallampati Score: II Teeth Condition: Intact Neck Range of motion (ROM): Full ROM Focused Labs Anesthesia Preop lab: CBC WBC 11.6 K/mm3 (4.4-11.0) H 11/20/19 05:55 RBC 3.80 M/mm3 (4.2-5.4) L 11/20/19 05:55 Hgb 10.8 g/dL (12.0-15.0) L 11/20/19 05:55 Hct 32.9 % (37-47) L 11/20/19 05:55 Plt Count 238 K/mm3 (150-450) 11/20/19 05:55 CHEMISTRY Potassium 3.6 mmol/L (3.5-5.1) 10/04/19 11:46 Sodium 140 mmol/L (136-145) 10/04/19 11:46 BUN 8 mg/dL (7-18) 10/04/19 11:46 Creatinine 0.50 mg/dL (0.55-1.02) L 10/04/19 11:46 Glucose 95 mg/dL (74-106) 10/05/21 11:37 TSH 2.75 uIU/mL (0.358-3.74) 06/22/22 12:04 COAG Urine Test Negative Negative 07/16/24 05:40 Pre-Assessment Diagnosis/Proposed Procedure Planned Operative Procedure(s): EGD Anesthesia History Anesthesia History - critical care educator: Anesthesia History - critical care educator Hx Hospitalization No 07/12/24 14:19 Any Problems With Anesthesia No 07/12/24 14:19 Cholinesterase deficiency No 07/12/24 14:19 You/Your Family Experience No 07/12/24 14:19 fever (hyperthermia) with Relationship Recent Exposure to Contagious No 07/16/24 06:05 Disease Does patient have nerve No 07/12/24 14:19 stimulator Patient instructed to have device shut off --Does patient have Pacemaker No 07/16/24 06:05 or ICD? When Was Last Pacemaker Check QUESTION #4 FULL TEXT: You/Your Family Experience fever (hyperthermia) with Anesthesia Last Oral Intake Last Oral intake: Last Oral Intake NPO since 00:00 07/16/24 06:05 Meds taken in AM with sips of No 07/16/24 06:05 water? Meds patient instructed to take am of surgery PONV PONV - critical care educator: PONV - critical care educator Female Yes 07/12/24 14:19 HX of Motion Sickness No 07/12/24 14:19 HX of N/V After Surgery No 07/12/24 14:19 Non-Smoker Yes 07/12/24 14:19 Duration of Surgery greater No 07/12/24 14:19 than 60 minutes Number of Risk Factors 2 07/12/24 14:19 PONV Score Moderate Risk 07/12/24 14:19 Height & Weight Height & Weight: Anesthesia: Height & Weight Height 5 ft 5 in 07/16/24 06:05 Weight: 109.8 kg 07/16/24 06:05 Body Mass Index (BMI) 40.2 07/16/24 06:05 Respiratory Assessment Respiratory Assessment - critical care educator: Respiratory Tract Infection Hx - critical care educator Hx Respiratory Tract Infection No 07/12/24 14:19 STOP Sleep Apnea STOP Sleep Apnea - critical care educator: STOP Sleep Apnea - critical care educator Hx Hypertension No 07/12/24 14:19 Hx Sleep Apnea No 07/12/24 14:19 CPAP No 12/16/14 15:52 BIPAP No 12/16/14 13:22 Do you snore loudly (louder No 07/12/24 14:19 than talking or can be heard Do you often feel tired/ No 07/12/24 14:19 fatigued/ sleepy during daytime? Has anyone observed you stop No 07/12/24 14:19 breathing during sleep? STOP Results Negative 07/12/24 14:19 QUESTION #5 FULL TEXT : Do you snore loudly (louder than talking or can be heard through closed doors)? Tobacco Use History Tobacco Use History - critical care educator: Tobacco Use History - critical care educator Tobacco Use Smoking Status Never smoker 07/12/24 14:19 Hx Tobacco Use No 07/12/24 14:19 Years Smoking Packs Smoked per Day Smoking Cessation Date was within the last 15 years Hx Smoking Cessation Date Hx Smoking Cessation Counseling Hematologic Medial History Hematologic Hx - critical care educator: Hematologic Medical Hx - documentation engineer Hx of Blood Transfusion No 07/12/24 14:19 Hx of Transfusion in last 3 No 07/12/24 14:19 Months Date of Last Transfusion (if within last 3 months) Ever experience any problems No 07/12/24 14:19 with transfusion(s)? Specify any problems Hx of Preganancy in last 3 No 07/12/24 14:19 Months Nurse Filling Out Transfusion DSCHRIBER 07/12/24 14:19 & Questions: Date: 07/12/24 07/12/24 14:19 Time: 14:20 07/12/24 14:19 Patient unable to answer at this time (ie. 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 History - critical care educator: /Reproductive Hx- critical care educator Hx Now No 07/12/24 14:19 Gestational Age (in weeks): EDC: Hx Hx Para Hx Section SAB No 07/12/24 14:19 PFSH Medical History Wears glasses Anemia Gastric reflux Asthma Non-smoker History of Holter monitoring Tachycardia Hypothyroid Home Medications ?Medication ?Instructions ?Recorded ?Last Taken ?Type levothyroxine 50 mcg tablet 50 mcg PO DAILY Check with primary 11/19/19 Unknown History doctor ibuprofen 600 mg tablet 600 mg PO TID PRN Pain Score 11/20/19 Unknown Rx -05/02 #30 tabs cetirizine 10 mg tablet 10 mg PO DAILY 07/12/24 Unknown History omeprazole 20 mg capsule,delayed 20 mg PO DAILY 07/12/24 Unknown History release Allergy/AdvReac Type Severity Reaction Status Date / Time Sulfa (Sulfonamide AdvReac Swelling Verified 07/12/24 14:18 Antibiotics) sulfamethoxazole (From AdvReac Nausea Verified 07/12/24 14:18 Bactrim) trimethoprim (From Bactrim) AdvReac Nausea Verified 07/12/24 14:18 Surgical History Hx of tonsillectomy Hx of abdominal surgery Previous section Social History Smoking Status: Never smoker Review of Systems (Anesthesia) ROS Narrative System reviewed and no additional complaints, except as documented.
--- NOTE | 2024-07-16 06:30 | EGD_PTH ---
PATIENT: CARSON VALDIVIA LOC: [facility] U#:[id number] AGE/SX: 34/F ROOM: RE07/16/[address]: Dr. Denver Flores DO : 1990 BED: DIS: 07/16/2024 SPEC #: [id number] RECD: 07/16/24 11:37 STATUS: AILYN NANCY #: [id number] TU: 07/16/24 06:[address]: Denver Flores DEPT: SURGICAL PATHOLOGY RECD BY: Bella Storey ENTERED: 07/16/24 14:19 SP TYPE: EGD BIOPSY OT DR: ANA Gonzalez Tissues: A - Duodenum, NOS B - Gastric mucous membrane C - Esophagus, NOS Procedures: Surgery Specimen Level IV HEADER OPERATION: EGD biopsy, dilation PRE-OP DIAGNOSIS: Gastroesophageal reflux disease TISSUE SUBMITTED: A. Duodenum, B. Gastric antrum, C. Distal esophagus MICROSCOPIC DIAGNOSIS A. Duodenum, Biopsy: Fragments of duodenal mucosa without villous blunting, intraepithelial lymphocytes, intraepithelial neutrophils, or dysplasia. B. Gastric Antrum, Biopsy: Fragments of gastric antral mucosa with occasional goblet cells, with no ulceration, gastritis, or organisms, including H. pylori (See Comment and Microscopic Description). C. Distal Esophagus, Biopsy: Fragments of gastroesophageal junctional mucosa with goblet cells and rare intraepithelial neutrophils and without erosion, granulation tissue, dysplasia, or polyps (See Comment). COMMENT B. The results of immunohistochemistry for Helicobacter pylori will be reported separately ([id number]). C. The goblet cells are in foveolar type mucosa adjacent to squamous mucosa. If the specimen was taken from the gastric mucosa, then this represents inflammation. If the specimen was taken form the esophagus, then this may indicate Cas Esophagus depending on macroscopic findings. Alcian blue/PAS stain with matched control supports the above diagnosis. MICROSCOPIC DESCRIPTION Slides are reviewed. B. An immunohistochemical stain for H. pylori was performed with appropriate controls and is negative, [id number]. GROSS DESCRIPTION A. Received is one container labeled with the patient name and designated duodenum. The specimen consists of one irregular fragment of light rosas soft tissue that measures 0.5 x 0.2 x .01 cm. The specimen is totally submitted in one cassette. B. Received is one container labeled with the patient name and designated gastric antrum. The specimen consists of one irregular fragment of light rosas soft tissue that measures 0.5 x 0.2 x 0.1 cm. The specimen is totally submitted in one cassette. C. Received is one container labeled with the patient name and designated distal esophagus. The specimen consists of multiple irregular fragments of light rosas soft tissue that in aggregate measure 0.5 x 0.2 x 0.1 cm. The specimen is totally submitted in one cassette. /MS:cc 07/16/24 TC:5 CPT: 81813 x3, 31518.
--- NOTE | 2024-07-16 06:38 | PCM.HP.STD ---
HPI - General General Date of Admission: 07/16/24 Date of Service: 07/16/24 Chief Complaint: Abdominal pain and dysphagia HPI Narrative CARSON VALDIVIA is a 34 F who presents Chief Complaint: Indigestion Details: CARSON VALDIVIA is a 34 F who presents to the office today for establishment with [facility]. Pt has no pertinent medical hx. She is is here today for evaluation of epigastric pain since March 2024. She was eating a sloppy laura and almost immediately after eating it she had severe indigestion. She has never had heartburn like this before. She did have some heartburn during her pregnancies. Her PCP put her on 20 mg of omeprazole daily which relieved the majority of his symptoms. She continues to feel a lump in her throat when she swallows. It feels as if food is getting stuck in her esophagus. She has never had an EGD or colonoscopy. New omeprazole 20 mg PO BID 90 caps 2RF PFSH Medical History Wears glasses Anemia Gastric reflux Asthma Non-smoker History of Holter monitoring Tachycardia Hypothyroid Home Medications ?Medication ?Instructions ?Recorded ?Last Taken ?Type levothyroxine 50 mcg tablet 50 mcg PO DAILY Check with primary 11/19/19 Unknown History doctor ibuprofen 600 mg tablet 600 mg PO TID PRN Pain Score 11/20/19 Unknown Rx 1-05/02 #30 tabs cetirizine 10 mg tablet 10 mg PO DAILY 07/12/24 Unknown History omeprazole 20 mg capsule,delayed 20 mg PO DAILY 07/12/24 Unknown History release Allergy/AdvReac Type Severity Reaction Status Date / Time Sulfa (Sulfonamide AdvReac Swelling Verified 07/12/24 14:18 Antibiotics) sulfamethoxazole (From AdvReac Nausea Verified 07/12/24 14:18 Bactrim) trimethoprim (From Bactrim) AdvReac Nausea Verified 07/12/24 14:18 Surgical History Hx of tonsillectomy Hx of abdominal surgery Previous section Social History Smoking Status: Never smoker ROS Constitutional Constitutional: Denies fatigue, fever(s), poor appetite, weight gain or weight loss Gastrointestinal Gastrointestinal: Denies belching, bloating, change in bowel habits, change in stool character, chewing difficulty, coffee ground emesis, constipation, cramping, diarrhea, dyspepsia, dysphagia, early satiety, excessive flatus, fecal incontinence, heartburn, hematemesis, hematochezia, hemorrhoids, loose stools, melena, nausea, odynophagia, rectal bleeding, tenesmus, vomiting or weight changes Vital Signs Vital Signs Vital Signs: 07/16/24 06:05 07/16/24 06:05 07/16/24 06:26 Temperature 99.1 F 99.1 F Temperature Source Temporal Pulse Rate 98 98 Respiratory Rate 16 16 Respiratory Pattern Normal Blood Pressure 136/80 H 136/80 H Blood Pressure Mean 98 Blood Pressure Source Monitor Blood Pressure Position Semi-Fowlers Blood Pressure Location Left Arm Pulse Ox 100 100 Oxygen Delivery Method Room Air Weight Weight: 242 lb 1.081 oz Body Mass Index (BMI) 40.2 Physical Exam Const alert, oriented x3, no apparent distress and healthy appearing General Appearance: cooperative GI normal to inspection, nondistended, normoactive bowel sounds, soft to palpation, non-tender and non-distended Percussion: normal to percussion Rectal Exam: deferred Results Lab / Micro Data Labs: Laboratory Results - last 24 hr 07/16/24 05:40: Urine Test Negative Assessment & Plan Assessment/Plan (1) Abdominal pain: (2) Dysphagia: PLAN: Plan Assessment and Plan Assessment and Plan (1) Gastroesophageal reflux disease: Plan: THis is a healthy 34 yo female pt here today for establishment with [facility]. For a month now she has been having severe heartburn. Her PCP put her on a course of omeprazole 20 mg daily. This did help but she continues to have sensation of a bolus in her throat and dysphagia. She will undergo EGD to rule out stricture, ulcer or GERD. I will increase her omeprazole to 20 mg BID. She is agreeable to this plan -EGD -increase omeprazole to BID -f/u after procedure Medications: New omeprazole 20 mg PO BID 90 caps 2RF
--- NOTE | 2024-07-16 07:03 | OP.EGD_ITS ---
Patient Name: Usha Mata Procedure Date: 07/16/2024 6:27 AM Date of : 1990 Age: 34 Procedure: Upper GI endoscopy Indications: Epigastric abdominal pain, Functional Dyspepsia, Dysphagia Providers: Denver Flores DO Referring MD: Gayla Navarro Medicines: Monitored Anesthesia Care Patient Profile: This is a 34 year old female. Refer to note in patient chart for documentation of history and physical. Patient has symptoms of dysphagia with solids. Complications: No immediate complications. Procedure: Pre-Anesthesia Assessment: - Prior to the procedure, a History and Physical was performed, and patient medications and allergies were reviewed. The patient is competent. The risks and benefits of the procedure and the sedation options and risks were discussed with the patient. All questions were answered and informed consent was obtained. Patient identification and proposed procedure were verified by the physician in the pre-procedure area. Mental Status Examination: alert and oriented. Airway Examination: normal oropharyngeal airway and neck mobility. Respiratory Examination: clear to auscultation. CV Examination: normal. Prophylactic Antibiotics: The patient does not require prophylactic antibiotics. Prior Anticoagulants: The patient has taken no anticoagulant or antiplatelet agents except for NSAID medication. ASA Grade Assessment: II - A patient with mild systemic disease. After reviewing the risks and benefits, the patient was deemed in satisfactory condition to undergo the procedure. The anesthesia plan was to use minimal sedation / analgesia (anxiolysis). Immediately prior to administration of medications, the patient was re-assessed for adequacy to receive sedatives. The heart rate, respiratory rate, oxygen saturations, blood pressure, adequacy of pulmonary ventilation, and response to care were monitored throughout the procedure. The physical status of the patient was re-assessed after the procedure. After obtaining informed consent, the endoscope was passed under direct vision. Throughout the procedure, the patient's blood pressure, pulse, and oxygen saturations were monitored continuously. The Endoscope was introduced through the mouth, and advanced to the second part of duodenum. The upper GI endoscopy was accomplished without difficulty. The patient tolerated the procedure well. Scope In: 6:49:31 AM Scope Out: 6:55:47 AM Total Procedure Duration Time 0 hours 6 minutes 16 seconds Findings: The Z-line was irregular and was found 40 cm from the incisors. Biopsies were taken with a cold forceps for histology. Verification of patient identification for the specimen was done. Estimated blood loss was minimal. A moderate Schatzki ring was found at the gastroesophageal junction. A guidewire was placed and the scope was withdrawn. Dilation was performed with a Savary dilator with no resistance at 57 Fr. The dilation site was examined and showed moderate mucosal disruption. Estimated blood loss was minimal. A small hiatal hernia was present. Patchy mild inflammation characterized by congestion (edema) was found in the gastric antrum and in the prepyloric region of the stomach. Biopsies were taken with a cold forceps for histology. Verification of patient identification for the specimen was done. Estimated blood loss was minimal. No gross lesions were noted in the duodenal bulb. Biopsies were taken with a cold forceps for histology. Verification of patient identification for the specimen was done. Estimated blood loss was minimal. Impression: - Z-line irregular, 40 cm from the incisors. Biopsied. - Moderate Schatzki ring. Dilated. - Small hiatal hernia. - Chronic gastritis. Biopsied. - No gross lesions in the duodenal bulb. Biopsied. Recommendation: - Discharge patient to home. - Resume previous diet. - Continue present medications. - Await pathology results. Procedure Code(s): --- Professional --- 32508, 59,51, Esophagogastroduodenoscopy, flexible, transoral; with insertion of guide wire followed by passage of dilator(s) through esophagus over guide wire 17390, 59,51, Esophagogastroduodenoscopy, flexible, transoral; with biopsy, single or multiple CPT copyright 2021 [employer]. All rights reserved. The codes documented in this report are preliminary and upon motor adjuster review may be revised to meet current compliance requirements. Denver Flores DO 07/16/2024 7:03:04 AM This report has been signed electronically. Number of Addenda: 0 Note Initiated On: 07/16/2024 6:27 AM
--- NOTE | 2024-07-16 07:03 | OP.CCLET_ITS ---
07/16/2024 Gayla Navarro Re : Upper GI endoscopy procedure for Usha Mata Dear Ramon This procedure was performed on Tuesday, July 16, 2024. My impressions and recommendations are as follows: Impressions : - Z-line irregular, 40 cm from the incisors. Biopsied. - Moderate Schatzki ring. Dilated. - Small hiatal hernia. - Chronic gastritis. Biopsied. - No gross lesions in the duodenal bulb. Biopsied. Recommendations : - Discharge patient to home. - Resume previous diet. - Continue present medications. - Await pathology results. My findings are described in the full procedure note, which is enclosed. If I can be of further assistance, please feel free to contact me at . Sincerely, Denver Flores, 07/16/2024 7:03:04 AM This report has been signed electronically.
--- NOTE | 2024-07-16 07:06 | PCM.POST.ANE ---
Anesthesia: Postop Eval I Current Vital Signs Temperature: 98.3 F Pulse Rate: 104 Blood Pressure: 123/46 Respiratory Rate: 18 Pulse Ox: 98 Oxygen Delivery Method: Room Air Assessment Airway patent: Yes Spontaneous unlabored respirations: Yes Mental status: Awake and Calm nausea: No Vomiting: No Anesthesia Complication: No Fluid Hydration Crystalloid volume administer (ml): 40 Total IV fluid infused: 40 Progress Note Anesthesia document: Postop Eval 1 completed: Yes
--- NOTE | 2024-07-16 08:03 | PCM.POSTANE2 ---
Anesthesia Postop Eval I Sum Postop Eval Completion status Anesthesia document: Postop Eval 1 completed: Yes Anesthesia Postop Eval I Summary Anesthesia Postop Eval I Summary: Anesthesia Postop Eval I: Assessment Summary Airway patent Yes 07/16/24 07:07 [email or web address] Spontaneous unlabored Yes 07/16/24 07:07 [email or web address] respirations Mental status Awake,Calm 07/16/24 07:07 [email or web address] nausea No 07/16/24 07:07 [email or web address] Vomiting No 07/16/24 07:07 [email or web address] Anesthesia Postop Eval I: Fluid Summary Crystalloid volume administer 40 07/16/24 07:07 [email or web address] (ml) Colloids volume administered ( ml) Blood Product volume administered (ml) Total IV fluid infused 40 07/16/24 07:07 [email or web address] Anesthesia Postop Eval I: Summary Notes Anesthesia Complication No 07/16/24 07:07 [email or web address] Anesthesia Complication Comment: Post-operative progress note Anesthesia: Postop Eval II Evaluation Mental status: Awake Pain Level: 0 nausea: No Vomiting: No
== END 2024-07-16 07:44 | disposition home or self-care (01) ==
LOC: EN 05:12 → AC 05:12
PROVIDERS: Anesthesiology; PCP Physician Assistant; Referring Provider Physician Assistant; Visit Provider Internal Medicine Gastroenterology
PROC: 0DJ08ZZ Inspection of Upper Intestinal Tract, Via Natural or Artificial Opening Endoscopic (ICD-10-PCS; CPT 43235; principal; 2024-07-16 06:25)
DX: K22.2 Esophageal obstruction (principal); K44.9 Diaphragmatic hernia without obstruction or gangrene; K29.50 Unspecified chronic gastritis without bleeding; K21.9 Gastro-esophageal reflux disease without esophagitis; K30 Functional dyspepsia; E03.9 Hypothyroidism, unspecified; Z79.890 Hormone replacement therapy; Z79.899 Other long term (current) drug therapy
CPT/HCPCS: 43248; 43239; 81025; 88305; 88342; A4216; C1769; J2405

== ENCOUNTER → 2024-12-13 | Outpatient (CLI) | payer MEDICAID, SELFPAY ==
[2024-12-17 14:08] LABS: Calprotectin, Stool 228 ug/g (0-120)
== END | disposition home or self-care (01) ==
LOC: LABSPEC 09:40
PROVIDERS: PCP Physician Assistant; Referring Provider Student in an Organized Health Care Education/Training Program; Visit Provider Student in an Organized Health Care Education/Training Program
DX: R19.5 Other fecal abnormalities (principal)
CPT/HCPCS: 83993

== ENCOUNTER 2025-02-18 12:43 | Day surgery (SDC) | payer MEDICAID, SELFPAY ==
[2025-02-18] VITALS (7 sets, daily range): BP systolic 107–135; BP diastolic 74–97; PULSE 49–63; RESP 14–18; TEMP 36.2–36.4; O2SAT 97–100; BMI 33.0
[2025-02-18 13:01] LABS: Internal QC Validated? YES +Cl - CLEAR BKGD; Pregnancy, Urine Negative Negative; Record Kit Lot#,Urine Preg 0000962302
[2025-02-18] MEDS: Lactated Ringers 1,000 ML 15 ML IV (13:26)
--- NOTE | 2025-02-18 13:41 | PCM.PRE.AN2 ---
ASA Classification* ASA Classification ASA Classification: 2 Assessment & Plan Anesthesia* Anesthesia Assessment Anesthesia Assessment: Discussed sedation and/or anesthesia options, risks, benefits, and alternatives with patient/parents/legal guardian/POA. Questions invited. The patient/parents/legal guardian/POA seems to understand and agrees to proceed with anesthesia plan. Reviewed the physical assessment, medical history, allergy history and patient home medications list prior to surgery/procedure/anesthetic and documented any changes. Performed airway and anesthesia risk assessments. Anesthesia Type Anesthesia Type: MAC History Source History Obtained from:: Patient and Chart Anesthesia Focused Assessment* Temperature: 97.5 F Pulse Rate: 63 Blood Pressure: 135/80 Respiratory Rate: 18 Pulse Ox: 100 Oxygen Delivery Method: Room Air Airway Assessment Mouth opens: >3 cm Mallampati Score: I Teeth Condition: Lower (Patient has a permanent retainer behind her bottom teeth.) Neck Range of motion (ROM): Full ROM Labs Anesthesia Preop lab: CBC WBC 11.6 K/mm3 (4.4-11.0) H 11/20/19 05:55 11/20/19 RBC 3.80 M/mm3 (4.2-5.4) L 11/20/19 05:55 11/20/19 Hgb 10.8 g/dL (12.0-15.0) L 11/20/19 05:55 11/20/19 Hct 32.9 % (37-47) L 11/20/19 05:55 11/20/19 Plt Count 238 K/mm3 (150-450) 11/20/19 05:55 11/20/19 CHEMISTRY Potassium 3.6 mmol/L (3.5-5.1) 10/04/19 11:46 10/04/19 Sodium 140 mmol/L (136-145) 10/04/19 11:46 10/04/19 BUN 8 mg/dL (7-18) 10/04/19 11:46 10/04/19 Creatinine 0.50 mg/dL (0.55-1.02) L 10/04/19 11:46 10/04/19 Glucose 95 mg/dL (74-106) 10/05/21 11:37 10/05/21 TSH 2.75 uIU/mL (0.358-3.74) 06/22/22 12:04 06/22/22 COAG Urine Test Negative Negative 02/18/25 12:50 02/18/25 Pre-Assessment Diagnosis/Proposed Procedure Planned Operative Procedure(s): COLONOSCOPY Anesthesia History Anesthesia History - line installer trolley: Anesthesia History - line installer trolley Hx Hospitalization No 02/14/25 08:38 Any Problems With Anesthesia No 02/14/25 08:38 Cholinesterase deficiency No 02/14/25 08:38 You/Your Family Experience No 02/14/25 08:38 fever (hyperthermia) with Relationship Recent Exposure to Contagious No 02/18/25 13:17 Disease Does patient have nerve No 02/14/25 08:38 stimulator Patient instructed to have device shut off --Does patient have Pacemaker or ICD? When Was Last Pacemaker Check QUESTION #4 FULL TEXT: You/Your Family Experience fever (hyperthermia) with Anesthesia Last Oral Intake Last Oral intake: Last Oral Intake NPO since 10:00 02/18/25 13:17 Meds taken in AM with sips of water? Meds patient instructed to take am of surgery Any additional information?: Yes NPO since: 10:00 (Patient finished her prep at 10 AM.) Meds taken in AM with sips of water?: No PONV PONV - line installer trolley: PONV - line installer trolley Female Yes 02/14/25 08:38 HX of Motion Sickness No 02/14/25 08:38 HX of N/V After Surgery No 02/14/25 08:38 Non-Smoker Yes 02/14/25 08:38 Duration of Surgery greater No 02/14/25 08:38 than 60 minutes Number of Risk Factors 2 02/14/25 08:38 PONV Score Moderate Risk 02/14/25 08:38 Height & Weight Height & Weight: Anesthesia: Height & Weight Height 5 ft 5 in 02/18/25 13:17 Weight: 90 kg 02/18/25 13:17 Body Mass Index (BMI) 33.0 02/18/25 13:17 Respiratory Assessment Respiratory Assessment - line installer trolley: Respiratory Tract Infection Hx - line installer trolley Hx Respiratory Tract Infection No 02/14/25 08:38 STOP Sleep Apnea STOP Sleep Apnea - line installer trolley: STOP Sleep Apnea - line installer trolley Hx Hypertension No 02/14/25 08:38 Hx Sleep Apnea No 02/14/25 08:38 CPAP No 07/16/24 07:07 BIPAP No 12/16/14 13:22 Do you snore loudly (louder No 02/14/25 08:38 than talking or can be heard Do you often feel tired/ No 02/14/25 08:38 fatigued/ sleepy during daytime? Has anyone observed you stop No 02/14/25 08:38 breathing during sleep? STOP Results Negative 02/14/25 08:38 QUESTION #5 FULL TEXT : Do you snore loudly (louder than talking or can be heard through closed doors)? Tobacco Use History Tobacco Use History - line installer trolley: Tobacco Use History - line installer trolley Tobacco Use Smoking Status Never smoker 02/14/25 08:38 Hx Tobacco Use No 02/14/25 08:38 Years Smoking Packs Smoked per Day Smoking Cessation Date was within the last 15 years Hx Smoking Cessation Date Hx Smoking Cessation Counseling Hematologic Medial History Hematologic Hx - line installer trolley: Hematologic Medical Hx - rn documentation Hx of Blood Transfusion No 02/14/25 08:38 Hx of Transfusion in last 3 No 02/14/25 08:38 Months Date of Last Transfusion (if within last 3 months) Ever experience any problems No 02/14/25 08:38 with transfusion(s)? Specify any problems Hx of Preganancy in last 3 No 02/14/25 08:38 Months Nurse Filling Out Transfusion [email or web address] 02/14/25 08:38 & Questions: Date: 02/14/25 02/14/25 08:38 Time: 08:39 02/14/25 08:38 Patient unable to answer at this time (ie. 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 History - line installer trolley: /Reproductive Hx- line installer trolley Hx Now Gestational Age (in weeks): EDC: Hx Hx Para Hx Section SAB No 07/12/24 14:19 Active Medications Active Medications: Current Medications Generic Name Dose Route Start Last Admin Trade Name Freq PRN Reason Stop Dose Admin Lactated Ringer's 1,000 mls @ 15 mls/hr 02/18/25 13:30 02/18/25 13:26 IV 15 mls/hr .Q48H TAE Administration PFSH Medical History Wears glasses Anemia Gastric reflux Asthma Non-smoker History of Holter monitoring Tachycardia Hypothyroid Home Medications ?Medication ?Instructions ?Recorded ?Last Taken ?Type levothyroxine 50 mcg tablet 50 mcg PO DAILY Check with primary 11/19/19 02/17/25 History doctor cetirizine 10 mg tablet 10 mg PO DAILY 07/12/24 02/16/25 History Saccharomyces boulardii 250 mg 250 mg PO BID #90 caps 10/22/24 02/17/25 Rx capsule (Florastor) omeprazole 20 mg capsule,delayed 20 mg PO DAILY 02/14/25 02/17/25 History release wheat dextrin 1 gram tablet 1 g PO BID 02/14/25 02/14/25 History (Benefiber (wheat dextrin)) Allergy/AdvReac Type Severity Reaction Status Date / Time Sulfa (Sulfonamide AdvReac Swelling Verified 02/18/25 13:14 Antibiotics) sulfamethoxazole (From AdvReac Nausea Verified 02/18/25 13:14 Bactrim) trimethoprim (From Bactrim) AdvReac Nausea Verified 02/18/25 13:14 Surgical History Hx of tonsillectomy Hx of abdominal surgery Previous section Social History Smoking Status: Never smoker Review of Systems (Anesthesia) ROS Narrative System reviewed and no additional complaints, except as documented.
--- NOTE | 2025-02-18 14:00 | COLBX_PTH ---
PATIENT: CARSON VALDIVIA LOC: [facility] U#:[id number] AGE/SX: 34/F ROOM: RE02/18/[address]: Dr. Denver Flores DO : 1990 BED: DIS: 02/18/2025 SPEC #: [id number] RECD: 02/18/25 17:01 STATUS: AILYN NANCY #: [id number] TU: 02/18/25 14:[address]: Denver Flores DEPT: SURGICAL PATHOLOGY RECD BY: Ken Fay ENTERED: 02/19/25 09:23 SP TYPE: COLON BX OTHR DR: ANA Gonzalez Tissues: A - Ileum, NOS B - COLON BIOPSY Procedures: Surgery Specimen Level IV HEADER OPERATION: Colonoscopy with biopsy PRE-OP DIAGNOSIS: Loose stools TISSUE SUBMITTED: A- Terminal ileum biopsy, B- Random colon biopsy MICROSCOPIC DIAGNOSIS A. Terminal ileum, biopsy: - Acute inflammation. - Prominent mucosal lymphoid tissue, favor reactive. B. Colon, random, biopsy: - No specific pathologic change. MICROSCOPIC DESCRIPTION Slides are reviewed. GROSS DESCRIPTION A. Received in fixative is one container labeled with the patient's name and designated Terminal ileum biopsy. The specimen consists of two irregular fragments of light rosas soft tissue that in aggregate measure 0.4 and 0.5 cm. The specimen is totally submitted in one cassette. B. Received in fixative is one container labeled with the patient's name and designated Random colon biopsy. The specimen consists of multiple irregular fragments of light rosas soft tissue that in aggregate measure 1.5 x 0.6 x 0.1 cm. The specimen is totally submitted in one cassette. MN 02/19/2025 CPT:39928p6
--- NOTE | 2025-02-18 14:32 | PCM.HP.STD ---
[facility] - General General Date of Admission: 02/18/25 Date of Service: 02/18/25 Chief Complaint: Diarrhea [facility] Narrative CARSON VALDIVIA, is a 34 F who presents today for the evaluation of recurring diarrhea. She has a past medical history of C. difficile infection from unknown cause. She completed treatment for C. difficile and is currently on a probiotic on a daily basis. She comes in today for colonoscopy. [facility] Medical History Wears glasses Anemia Gastric reflux Asthma Non-smoker History of Holter monitoring Tachycardia Hypothyroid Home Medications ?Medication ?Instructions ?Recorded ?Last Taken ?Type levothyroxine 50 mcg tablet 50 mcg PO DAILY Check with primary 11/19/19 02/17/25 History doctor cetirizine 10 mg tablet 10 mg PO DAILY 07/12/24 02/16/25 History Saccharomyces boulardii 250 mg 250 mg PO BID #90 caps 10/22/24 02/17/25 Rx capsule (Florastor) omeprazole 20 mg capsule,delayed 20 mg PO DAILY 02/14/25 02/17/25 History release wheat dextrin 1 gram tablet 1 g PO BID 02/14/25 02/14/25 History (Benefiber (wheat dextrin)) Allergy/AdvReac Type Severity Reaction Status Date / Time Sulfa (Sulfonamide AdvReac Swelling Verified 02/18/25 13:14 Antibiotics) sulfamethoxazole (From AdvReac Nausea Verified 02/18/25 13:14 Bactrim) trimethoprim (From Bactrim) AdvReac Nausea Verified 02/18/25 13:14 Surgical History Hx of tonsillectomy Hx of abdominal surgery Previous section Social History Smoking Status: Never smoker ROS Constitutional Constitutional: Denies fatigue, fever(s), poor appetite, weight gain or weight loss Gastrointestinal Gastrointestinal: Denies belching, bloating, change in bowel habits, change in stool character, chewing difficulty, coffee ground emesis, constipation, cramping, diarrhea, dyspepsia, dysphagia, early satiety, excessive flatus, fecal incontinence, heartburn, hematemesis, hematochezia, hemorrhoids, loose stools, melena, nausea, odynophagia, rectal bleeding, tenesmus, vomiting or weight changes Vital Signs Vital Signs Vital Signs: 02/18/25 13:17 02/18/25 13:17 02/18/25 13:47 Temperature 97.5 F L 97.5 F L Temperature Source Temporal Pulse Rate 63 63 Respiratory Rate 18 18 Respiratory Pattern Normal Blood Pressure 135/80 H 135/80 H Blood Pressure Mean 98 Blood Pressure Source Monitor Blood Pressure Position Semi-Fowlers Blood Pressure Location Left Arm Pulse Ox 100 100 Oxygen Delivery Method Room Air Room Air Weight Weight: 198 lb 6.656 oz Body Mass Index (BMI) 33.0 Physical Exam Const alert, oriented x3, no apparent distress and healthy appearing General Appearance: cooperative GI normal to inspection, nondistended, normoactive bowel sounds, soft to palpation, non-tender and non-distended Percussion: normal to percussion Rectal Exam: deferred Results Lab / Micro Data Labs: Laboratory Results - last 24 hr 02/18/25 12:50: Urine Test Negative Assessment & Plan Assessment/Plan (1) Loose stools: PLAN: She will undergo colonoscopy. She was explained alternatives, risk and benefits include not withstanding bleeding, infection, sepsis, perforation, need for emergent surgery and . She will have an ASA of 3.
--- NOTE | 2025-02-18 15:09 | PCM.POST.ANE ---
Anesthesia: Postop Eval I Current Vital Signs Temperature: 97.3 F Pulse Rate: 55 Blood Pressure: 116/74 Respiratory Rate: 14 Pulse Ox: 99 Oxygen Delivery Method: Room Air Assessment Airway patent: Yes Spontaneous unlabored respirations: Yes Mental status: Awake nausea: No Vomiting: No Anesthesia Complication: No Fluid Hydration Crystalloid volume administer (ml): 600 Total IV fluid infused: 600 Progress Note Anesthesia document: Postop Eval 1 completed: Yes
--- NOTE | 2025-02-18 15:14 | OP.COLON_ITS ---
Patient Name: Usha Mata Procedure Date: 02/18/2025 2:33 PM Date of : 1990 Age: 34 Procedure: Colonoscopy Indications: Generalized abdominal pain, Chronic diarrhea Providers: Denver Flores DO Referring MD: Gayla Navarro Medicines: Monitored Anesthesia Care Patient Profile: This is a 34 year old female. Refer to note in patient chart for documentation of history and physical. Last Colonoscopy: none. The patient's first colonoscopy is today. Complications: No immediate complications. Procedure: Pre-Anesthesia Assessment: - Prior to the procedure, a History and Physical was performed, and patient medications and allergies were reviewed. The patient is competent. The risks and benefits of the procedure and the sedation options and risks were discussed with the patient. All questions were answered and informed consent was obtained. Patient identification and proposed procedure were verified by the physician in the pre-procedure area. Mental Status Examination: alert and oriented. Airway Examination: normal oropharyngeal airway and neck mobility. Respiratory Examination: clear to auscultation. CV Examination: normal. Prophylactic Antibiotics: The patient does not require prophylactic antibiotics. Prior Anticoagulants: The patient has taken no anticoagulant or antiplatelet agents. ASA Grade Assessment: II - A patient with mild systemic disease. After reviewing the risks and benefits, the patient was deemed in satisfactory condition to undergo the procedure. The anesthesia plan was to use monitored anesthesia care (MAC). Immediately prior to administration of medications, the patient was re-assessed for adequacy to receive sedatives. The heart rate, respiratory rate, oxygen saturations, blood pressure, adequacy of pulmonary ventilation, and response to care were monitored throughout the procedure. The physical status of the patient was re-assessed after the procedure. After I obtained informed consent, the scope was passed under direct vision. Throughout the procedure, the patient's blood pressure, pulse, and oxygen saturations were monitored continuously. The colonoscope was introduced through the anus and advanced to the terminal ileum. The colonoscopy was performed without difficulty. The patient tolerated the procedure well. The quality of the bowel preparation was adequate. The terminal ileum, ileocecal valve, appendiceal orifice, and rectum were photographed. Scope In: 2:48:53 PM Scope Withdrawal Time 0 hours 8 minutes 18 seconds Scope Out: 2:59:58 PM Total Procedure Duration Time 0 hours 11 minutes 5 seconds Findings: The perianal and digital rectal examinations were normal. An area of mildly congested mucosa was found in the recto-sigmoid colon, in the transverse colon and in the cecum. Biopsies were taken with a cold forceps for histology. Verification of patient identification for the specimen was done. Estimated blood loss was minimal. A patchy area of the terminal ileum was congested. Biopsies were taken with a cold forceps for histology. Verification of patient identification for the specimen was done. Estimated blood loss was minimal. A few small-mouthed diverticula were found in the sigmoid colon. Impression: - Congested mucosa in the recto-sigmoid colon, in the transverse colon and in the cecum. Biopsied. - Congested mucosa in the terminal ileum. Biopsied. - Diverticulosis in the sigmoid colon. Recommendation: - Discharge patient to home. - Resume previous diet. - Repeat colonoscopy is recommended for surveillance. The colonoscopy date will be determined after pathology results from today's exam become available for review. - Continue present medications. Procedure Code(s): --- Professional --- 19896, Colonoscopy, flexible; with biopsy, single or multiple CPT copyright 2021 [employer]. All rights reserved. The codes documented in this report are preliminary and upon char filter operator helper review may be revised to meet current compliance requirements. Denver Flores DO 02/18/2025 3:13:54 PM This report has been signed electronically. Number of Addenda: 0 Note Initiated On: 02/18/2025 2:33 PM
--- NOTE | 2025-02-18 15:14 | OP.PROVAT_ITS ---
02/18/2025 Gayla Navarro Re : Colonoscopy procedure for Usha Mata Dear Ramon This procedure was performed on Tuesday, February 18, 2025. My impressions and recommendations are as follows: Impressions : - Congested mucosa in the recto-sigmoid colon, in the transverse colon and in the cecum. Biopsied. - Congested mucosa in the terminal ileum. Biopsied. - Diverticulosis in the sigmoid colon. Recommendations : - Discharge patient to home. - Resume previous diet. - Repeat colonoscopy is recommended for surveillance. The colonoscopy date will be determined after pathology results from today's exam become available for review. - Continue present medications. My findings are described in the full procedure note, which is enclosed. If I can be of further assistance, please feel free to contact me at . Sincerely, Denver Flores, 02/18/2025 3:13:54 PM This report has been signed electronically.
--- NOTE | 2025-02-18 20:25 | POSTOPAN2_ITS ---
Anesthesia Postop Eval I Sum Postop Eval Completion status Anesthesia document: Postop Eval 1 completed: Yes Anesthesia Postop Eval I Summary Anesthesia Postop Eval I Summary: Anesthesia Postop Eval I: Assessment Summary Airway patent Yes 02/18/25 15:10 BED [email or web address] Spontaneous unlabored Yes 02/18/25 15:10 BED SETTER.APAT respirations Mental status Awake 02/18/25 15:10 BED SETTER.APAT nausea No 02/18/25 15:10 BED SETTER.APAT Vomiting No 02/18/25 15:10 BED SETTER.APAT Anesthesia Postop Eval I: Fluid Summary Crystalloid volume administer 600 02/18/25 15:10 BED SETTER.APAT (ml) Colloids volume administered ( ml) Blood Product volume administered (ml) Total IV fluid infused 600 02/18/25 15:10 BED SETTER.APAT Anesthesia Postop Eval I: Summary Notes Anesthesia Complication No 02/18/25 15:10 BED SETTER.APAT Anesthesia Complication Comment: Post-operative progress note Anesthesia: Postop Eval II Evaluation Mental status: Awake and Calm Pain Level: 0 nausea: No Vomiting: No Complications Anesthesia Complication: No
--- NOTE | 2025-02-18 20:25 | PCM.POSTANE2 ---
Anesthesia Postop Eval I Sum Postop Eval Completion status Anesthesia document: Postop Eval 1 completed: Yes Anesthesia Postop Eval I Summary Anesthesia Postop Eval I Summary: Anesthesia Postop Eval I: Assessment Summary Airway patent Yes 02/18/25 15:10 JDE [email or web address] Spontaneous unlabored Yes 02/18/25 15:10 JDE [email or web address].APAT respirations Mental status Awake 02/18/25 15:10 JDE DEVELOPER.APAT nausea No 02/18/25 15:10 JDE DEVELOPER.APAT Vomiting No 02/18/25 15:10 JDE DEVELOPER.APAT Anesthesia Postop Eval I: Fluid Summary Crystalloid volume administer 600 02/18/25 15:10 JDE [email or web address].APAT (ml) Colloids volume administered ( ml) Blood Product volume administered (ml) Total IV fluid infused 600 02/18/25 15:10 JDE [email or web address].APAT Anesthesia Postop Eval I: Summary Notes Anesthesia Complication No 02/18/25 15:10 JDE [email or web address] Anesthesia Complication Comment: Post-operative progress note Anesthesia: Postop Eval II Evaluation Mental status: Awake and Calm Pain Level: 0 nausea: No Vomiting: No Complications Anesthesia Complication: No
--- OUTSIDE RECORDS SUMMARY | 2025-02-18 22:22 | XMS RPT_ITS | CCD ---
Author Organization [facility] Care Team Providers Care Auditor Name Role Phone Adolfo Mcdermott MD Primary Care Provider [phone] Gayla Navarro PA-C Unavailable Gayla Navarro PA-C Unavailable Elvia enrollment management director, . . Unavailable Rolando HART, Zahida Beckford Unavailable Magdy ALCANTARN, Noemi Unavailable Adolfo Mcdermott MD Unavailable Lincoln ALCANTARN, Bruna Unavailable Unavailable Yenifer Conway PA-C Unavailable Rosa IBARRA, Jenny Barksdale Unavailable Unavail able King AMY-C, Maximino Mahmood Unavailable Chaim IBARRA, Yenfier Cruz Unavailable Unavaila héctor Ortega LPN, Zahida Cheney Unavailable Unavailab lali Cronin LPN, Tesha Unavailable Unavailab Yasmine Regalado MA Unavailable Unavailable Nikhil HART, Felice Cruz Unavailable Juan ALCANTARN, Teena Unavailable Unavailabl e Unavailable Unavailable Adolfo Mcdermott MD Primary Care Provider Elian Lee PA-C Unavailable Agustin ALCANTARN, Delbert Unavailable Unavailable Unavailable Unavailable Unavailable Unavailable Adolfo Mcdermott MD Primary Care Provider [phone] Elvi Hudson LPN Unavailable Unavailabl e LIBIA Attending Unavailable Ana Maria Dalton PA-C Unavailable Gayla Navarro PA-C Primary Care Provider Sandra CGC, Arcelia F Unavailable NAVARRO, GAYLA J Attending Unavailable ADOLFO MCDERMOTT Consulting Unavailable NAVARRO, GAYLA J Admitting Unavailable NAVARRO, GAYLA J Primary Care Unavailable PROVIDER, UNKNOWN Consulting Unavailable PROVIDER, UNKNOWN Consulting Unavailable PROVIDER, UNKNOWN Consulting Unavailable NAVARRO, GAYLA J Attending Unavailable ADOLFO MCDERMOTT Consulting Unavailable NAVARRO, GAYLA J Admitting Unavailable NAVARRO, GAYLA J Primary Care Unavailable PROVIDER, UNKNOWN Consulting Unavailable PROVIDER, UNKNOWN Consulting Unavailable PROVIDER, UNKNOWN Consulting Unavailable NAVARRO, GAYLA J Primary Care Unavailable ANA MARIA DALTON Referring Unavailable SANDRA, ARCELIA F Attending Unavailable NAVARRO, GAYLA J Referring Unavailable SANDRA, ARCELIA F Attending Unavailable NAVARRO, GAYLA J Primary Care Unavailable NAVARRO, GAYLA J Primary Care Unavailable ISABELLA HARRELL Attending Unavailable ISABELLA HARRELL Referring Unavailable ARCELIA WILKS Attending Unavailable BROWNADOLFO Primary Care Unavailable Navarro PA, Gayla Primary Care Provider [phone] Jannette Terrell Attending Provider [phone] Jannette Terrell Referring Provider Tr Salazar Attending Unavailable FriendDenver Referring Unavailable Navarro PA, Gayla Primary Care Unavailable Jannette Saba Attending Unavailable Jannette Saba Referring Unavailable Navarro PA, Gayla Primary Care Unavailable Jannette Saba Attending Unavailable Navarro PA, Gayla Referring Unavailable Navarro PA, Gayla Primary Care Unavailable FriendDenver Attending Unavailable Navarro PA, Gayla Referring Unavailable Navarro PA, Gayla Primary Care Unavailable FriendDenver Consulting Unavailable FriendDenver Attending Unavailable Navarro PA, Gayla Referring Unavailable FriendDenver Attending Unavailable Navarro PA, Gayla Primary Care Unavailable Navarro PA, Gayla Referring Unavailable Navarro PA, Gayla Referring Provider Dr. Denver Flores DO Attending Provider Dr. Denver Flores DO Other Provider Allergies Allergy Classification Reported Allergen(s) Allergy Type Date of Onset Reaction(s) Facility Sulfonamides (antibiotic) (4 sources) Sulfonamides (Antibiotic) Drug Allergy [facility], [facility] (4 sources) Sulfamethoxazole Drug Allergy 11-13-19 15 Nausea [facility] (10 sources) Sulfonamides (Antibiotic); Translations: [SULFA (SULFONAMIDE ANTIBIOTICS)] Propensity to adverse reactions 11-13-19 15 Hives, GI Upset, Swelling [facility] (9 sources) Trimethoprim; Translations: [TRIMETHOPRIM] Drug Allergy 11-13-19 15 GI Upset [facility] (20 sources) [facility]ibiotic[facility] (20 sources) Augmentin *PENICILLINS* [facility] (5 sources) Amoxicillin / Clavulanate; Translations: [AMOXICILLIN-POT CLAVULANATE] Drug Allergy 07-08-20 18 [facility] (5 sources) metFORMIN; Translations: [METFORMIN] Drug All[facility]-21-20 [facility] ([facility] source) Sulfamethoxazole / Trimethoprim Drug Allergy [facility] (1 source) (+) CDIFF; Translations: [(+) CDIFF] Propensity to adverse reactions (disorder) [facility] (1 source) Sulfamethoxazole Drug Allergy 02-15-20 [facility] (1 source) Trimethoprim Drug Allergy 02-15-20 [facility] Medications Current Medications Medication Drug Class(es) Dates Sig (Normalized) Sig (Original) cetirizine hydrochloride 10 mg oral tablet (15 sources) Histamine-1 Receptor Antagonist Start: 04-25-2024 ZyrTEC 10 mg tablet ; 1 (one) tablet daily for 0 days Quantity: 30 {Tablet} Refills: 5 Ordered: 25-Apr-2024 DIDIER Hudson Start: 25-Apr-2024 fluconazole 150 mg oral tablet (20 sources) Azole Antifungal Start: 08-21-2024 fluconazole 150 mg tablet ; 1 (one) tablet one time dose for 0 days Quantity: 1 {Tablet} Refills: 0 Ordered: 21-Aug-2024 DIDIER Ortega Start: 21-Aug-2024 Start: 07-21-2023 End: 12-27-2023 fluconazole 150 mg tablet ; 1 (one) tablet one time dose for 0 days Quantity: 1 {Tablet} Refills: 0 Ordered: 27-Dec-2023 DIDIER Ortega Start: 21-Jul-2023 End: 27-Dec-2023 Status: Inactive Start: 11-16-2018 End: 11-17-2018 Diflucan 150 MG Oral Tablet ; 1 Tab single dose for 1 days Quantity: 1 {Tablet} Refills: 0 Ordered: 16-Nov-2018 DIDIER Ortega Start: 16-Nov-2018 End: 17-Nov-2018 Status: Inactive fluticasone propionate 0.05 mg/actuat metered dose nasal spray (20 sources) Corticosteroid Start: 08-21-2024 take 1 spray(s) nasal route twice daily Flonase Allergy Relief 50 mcg/actuation nasal spray,suspension ; 1 (one) spray in each nostril BID for 0 days Quantity: 1 {Applicator} Refills: 0 Ordered: 21-Aug-2024 DIDIER Ortega Start: 21-Aug-2024 Start: 03-14-2024 End: 08-21-2024 fluticasone propionate 50 mc g/actuation nasal spray,suspension ; 2 (two) spray per nostril once daily for 0 days Quantity: 10 {Milliliter} Refills: 0 Ordered: 21-Aug-2024 DIDIER Hudson Start: 14-Mar-2024 End: 21-Aug-2024 Status: Inactive levothyroxine sodium 0.05 mg oral tablet (20 sources) l-Thyroxine Start: 11-19-2019 levothyroxine 50 mcg tablet ; 1 tablet qd for 0 days Quantity: 90 {Tablet} Refills: 3 Ordered: 24-Oct-2024 SUSHMA Navarro Start: 24-Oct-2024 Comments: Euthyrox 50mcg tab pro --- qty #90 --- needs to be in box. [place] Comment on above: Take 1 tablet by once daily. Euthyrox 50mcg tab p ro --- qty #90 --- needs to be in box. [facility] medroxyPROGESTERone acetate 10 mg oral tablet (20 sources) Progestin Start: 06-21-2023 End: 11-08-2024 take 1 tablet by mouth once daily as needed medroxyPROGESTERone (PROVERA) 10 mg tablet Take 1 tablet by mouth once daily. 10 days a month as needed to start menses 10 tablet 3 11/08/2024 Active Comment on above: Take 1 tablet by ivett th once daily. 10 days a month as needed to start menses Medication taken as needed. omeprazole 20 mg delayed release oral capsule (20 sources) Proton Pump Inhibitor Start: 02-14-2025 take 1 capsule by mouth once daily Omeprazole 20 mg capsule,delayed release(DR/EC) Active 20 mg PO DAILY February 14, 2025 12:00am Start: 07-22-2024 End: 07-22-2024 take 1 capsule by mouth once daily Omeprazole 40 mg capsule,delayed release(DR/EC) Discontinued 40 mg PO daily 20 10July 22, 2024 1:00am July 22, 2024 3:11pm Start: 04-25-2024 End: 02-14-2025 omeprazole 20 mg capsule,del ayed release ; 1 (one) capsule BID for 0 days Quantity: 30 {Capsule} Refills: 1 Ordered: 25-Apr-2024 SUSHMA Navarro Start: 25-Apr-2024 Start: 04-25-2024 End: 07-22-2024 take 1 capsule by mouth once daily Omeprazole 20 mg capsule,delayed release(DR/EC) Discontinued 20 mg PO DAILY July 12, 2024 1:00am July 22, 2024 11:47am Vit,[id number]-Ctjkt (Prenatabs Fa) 1 TABLET tablet (4 sources) Start: 11-12-2014 take 1 tablet by mouth once daily Vit,[id number]-Jkoor (Prenatabs Fa) 1 TABLET tablet Active 1 TABLET PO DAILY November 12, 2014 9:54am Start: 11-12-2014 End: 07-12-2024 take 1 tablet by mouth once daily Vit,[id number] (Prenatab s Fa) 1 TABLET tablet Discontinued 1 {tbl} PO DAILY November 12, 2014 12:00am July 12, 2024 3:18pm Start: 11-12-2014 End: 07-12-2024 take 1 tablet by mouth once daily Vit,[id number]-Dymt-Uvpll (Prenatab s Fa) 1 TABLET tablet Discontinued 1 {tbl} PO DAILY November 12, 2014 12:00am July 12, 2024 3:18pm Start: 11-12-2014 take 1 tablet by ivett th once daily Vit,[id number]-Yaex-Hfgur (Prenatab s Fa) 1 TABLET tablet Active 1 TABLET PO DAILY November 11, 2014 11:00pm saccharomyces boulardii 250 mg oral capsule (2 sources) Start: 10-22-2024 take 1 capsule by mouth twice daily Saccharomyces Boulardii (Florastor) 250 mg capsule Active 250 mg PO TWICE A DAY 90 3 October 22, 2024 12:00am WHEAT DEXTRIN (1 source) Start: 02-14-2025 Wheat Dextrin (Benefiber (Wheat Dextrin)) 1 gram tablet Active 1 g PO TWICE A DAY February 14, 2025 12:00am Completed/Discontinued Medications Medication Drug Class(es) Dates Sig (Normalized) Sig (Original) [id number] 200 actuat albuterol 0.09 mg/actuat metered dose inhaler (14 sources) beta2-Adrenergic Agonist Start: 03-14-2024 End: 08-21-2024 albuterol sulfate HFA 90 mcg/actuation aerosol inhaler ; 2 (two) inhalation Q 4-6 hours PRN cough/wheeze for 0 days Quantity: 1 {Each} Refills: 0 Ordered: 21-Aug-2024 DIDIER Hudson Start: 14-Mar-2024 End: 21-Aug-2024 Status: Inactive Comments: 1 inhaler Comment on above: 1 inhaler amoxicillin 500 mg oral tablet (20 sources) Penicillin-class Antibacterial Start: 10-26-2012 End: 11-05-2012 take 1 tablet by mouth three times daily AMOXICILLIN, 500MG (Oral Tablet) ; 1 Tablet TID for 10 days Quantity: 30 {Tablet} Refills: 0 Ordered: 26-Oct-2012 SUSHMA Navarro Start: 26-Oct-2012 End: 05-Nov-2012 Status: Inactive amoxicillin 875 mg / clavulanate 125 mg oral tablet (20 sources) Penicillin-class Antibacterial Start: 04-07-2018 End: 04-13-2018 take 1 tablet by mouth twice daily at mealtime Augmentin 875-125 MG Oral Tablet ; 1 (one) Tablet BID for 10 days Quantity: 20 {Tablet} Refills: 0 Ordered: 13-Apr-2018 MD Adolfo Mcdermott Start: 07-Apr-2018 End: 13-Apr-2018 Status: Inactive Comments: Take with food Start: 04-17-2015 End: 04-27-2015 take 1 tablet by mouth twice daily at mealtime AUGMENTIN, 875-125MG (Oral Tablet) ; 1 (one) Tablet BID for 10 days Quantity: 20 {Tablet} Refills: 0 Ordered: 17-Apr-2015 SUSHMA Navarro Start: 17-Apr-2015 End: 27-Apr-2015 Status: Inactive Comments: Take with food Comment on above: Take with food azithromycin 250 mg oral tablet (20 sources) Macrolide Antimicrobial Start: 8 End: 9 Zithromax Z-Manuel 250 MG Oral Tablet ; 2 (two) Tabs day one, then one daily for 4 days for 0 days Quantity: 1 {Package} Refills: 0 Ordered: 31-Oct-2018 DIDIER Martinez Start: 10-Jul-2018 End: 31-Oct-2018 Status: Inactive CALTRATE 600+D PLUS, [id number] (Oral Tablet) (20 sources) take 1 tablet by mouth once daily CALTRATE 600+D PLUS, [id number] (Oral Tablet) ; 1 daily (600-400 MG-UNIT) Status: Inactive cefdinir 300 mg oral capsule (20 sources) Cephalosporin Antibacterial Start: 5 End: 5 cefdinir 300 mg capsule ; 1 (one) Capsule two times daily for 10 days Quantity: 20 {Capsule} Refills: 0 Ordered: 21-Aug-2024 SUSHMA Navarro Start: 21-Aug-2024 End: 31-Aug-2024 Status: Inactive Start: 11-05-2018 End: 11-15-2018 take 1 capsule by mouth twice daily Cefdinir 300 MG Oral Capsule ; 1 (one) Capsule two times daily for 10 days Quantity: 20 {Capsule} Refills: 0 Ordered: 16-Nov-2018 SUSHMA Navarro Start: 05-Nov-2018 End: 15-Nov-2018 Status: Inactive cephalexin 500 mg oral capsule (20 sources) Cephalosporin Antibacterial Start: 08-09-2016 End: 08-19-2016 take 1 capsule by mouth three times daily Cephalexin 500 MG Oral Capsule ; 1 Capsule three times daily for 10 days Quantity: 30 {Capsule} Refills: 0 Ordered: 09-Aug-2016 WILBER Callejas Start: 09-Aug-2016 End: 19-Aug-2016 Status: Inactive ciprofloxacin 3 mg/ml ophthalmic solution (20 sources) Quinolone Antimicrobial Start: 07-20-2022 End: 12-27-2023 take 1-2 drop(s) into the eye(s) every two hours, then take 1-2 drop(s) into the eye(s) every four hours ciprofloxacin 0.3 % eye drops ; 1 (one) Metric Drop as directed for 0 days Quantity: 5 {Milliliter} Refills: 0 Ordered: 27-Dec-2023 DIDIER Ortega Start: 20-Jul-2022 End: 27-Dec-2023 Status: Inactive Comments: Instill 1 to 2 drops into the eye every 2 hours while awake for 2 days and 1 to 2 drops every 4 hours while awake for the next 5 days Comment on above: Instill 1 to 2 drops into the eye every 2 hours while awake for 2 days and 1 to 2 drops every 4 hours while awake for the next 5 days doxycycline hyclate 100 mg oral tablet (20 sources) Tetracycline-class Drug Start: 10-31-2018 End: 11-05-2018 take 1 tablet by mouth twice daily Doxycycline Hyclate 100 MG Oral Tablet ; 1 (one) Tablet BID for 10 days Quantity: 20 {Tablet} Refills: 0 Ordered: 05-Nov-2018 FRED Leeha L Start: 31-Oct-2018 End: 05-Nov-2018 Status: Inactive fidaxomicin 200 mg oral tablet (7 sources) Macrolide Antibacterial Start: 10-02-2024 End: 10-12-2024 fidaxomicin 200 mg tablet ; 1 (one) tablet BID for 10 days Quantity: 20 {Tablet} Refills: 0 Ordered: 02-Oct-2024 SUSHMA Navarro Start: 02-Oct-2024 End: 12-Oct-2024 Status: Inactive folic acid 0.4 mg oral tablet (20 sources) take 1 tablet by mouth once daily FOLIC ACID, 400MCG (Oral Tablet) ; 1 daily (400 MCG) Status: Inactive ibuprofen 600 mg oral tablet (4 sources) Nonsteroidal Anti-inflammatory Drug Start: 11-20-2019 End: 02-14-2025 take 1 tablet by mouth three times daily as needed for pain Ibuprofen 600 MG tablet Discontinued 600 mg PO THREE TIMES A DAY as needed for Pain Score 1-10/10 30 0 November 20, 2019 6:39pm February 14, 2025 8:36am letrozole 2.5 mg oral tablet (20 sources) Aromatase Inhibitor Letrozole 2. 5 MG Oral Tablet ; (2.5 MG) Status: Inactive metFORMIN hydrochloride 500 mg oral tablet (20 sources) Biguanide take 1 tablet by mouth twice daily metFORMIN HCl 500 MG Oral Tablet ; 1 bid (500 MG) Status: Inactive MULTIVITAMINS (Oral Tablet) (20 sources) take 1 tablet by mouth once daily MULTIVITAMINS (Oral Tablet) ; 1 daily Status: Inactive nitrofurantoin, macrocrystals 25 mg / nitrofurantoin, monohydrate 75 mg oral capsule (20 sources) Nitrofuran Antibacterial Start: 07-21-2023 End: 07-26-2023 Macrobid 100 mg capsule ; 1 (one) capsule BID for 5 days Quantity: 10 {Capsule} Refills: 0 Ordered: 21-Jul-2023 SUSHMA Navarro Start: 21-Jul-2023 End: 26-Jul-2023 Status: Inactive nystatin [id number] unt/ml oral suspension (20 sources) Polyene Antifungal Start: 11-07-2018 End: 11-14-2018 take 5 mL by mouth four times daily Nystatin [id number] UNIT/ML Mouth/Throat Suspension ; 5 Milliliter QID for 7 days Quantity: 140 {Milliliter} Refills: 0 Ordered: 07-Nov-2018 SUSHMA Navarro Start: 07-Nov-2018 End: 14-Nov-2018 Status: Inactive oxyCODONE hydrochloride 5 mg oral tablet (8 sources) Opioid Agonist Start: 11-20-2019 End: 11-24-2019 take 1 tablet by mouth every four hours as needed for pain Oxycodone 5 MG tablet Discontinued 5 mg PO EVERY 4 HOURS NEEDED as needed for Pain Score 6-10/10 16 4 0 November 20, 2019 November 23, 2019 12:00am November 24, 2019 12:02am History of section History of uterine scar from previous surgery Start: 11-20-2019 End: 11-27-2019 Oxycodone 5 MG tablet Discon tinued 1 {tbl} PO EVERY 6 HOURS NEEDED as needed for Pain Score 4-10/10 16 7 0 November 20, 2019 November 26, 2019 12:00am November 27, 2019 12:02am History of section History of uterine scar from previous surgery predniSONE 20 mg oral tablet (20 sources) Start: 02-16-2022 End: 07-20-2022 predniSONE 20 MG Oral Tablet ; 1 (one) Tablet as directed for 0 days Quantity: 20 {Tablet} Refills: 0 Ordered: 20-Jul-2022 JACKI Etienne Start: 16-Feb-2022 End: 20-Jul-2022 Status: Inactive Comments: Take 3tabs qd for 3 days thenTake 2tabs qd for 3 days thenTake 1tab qd for 3 days thenTake 1/2tab qd for 4 days.She is 1 y/o child - please review best timing for dosing of this --- I would think breastfeed >4 hours after dose Comment on above: Take 3tabs qd for 3 days thenTake 2tabs qd for 3 days thenTake 1tab qd for 3 days thenTake 1/2tab qd for 4 days.She is 1 y/o child - please review best timing for dosing of this --- I would think breastfeed >4 hours after dose Vitamins Oral Tablet (20 sources) take 2 tablets by mouth twice daily Vitamins Oral Tablet ; 2 two times daily Status: Inactive take 2 tablets by mouth twice da audelia Vitamins Oral Tablet ; 2 two times daily triamcinolone acetonide 1 mg/ml topical cream (20 sources) Corticosteroid Start: 02-16-2022 End: 12-27-2023 triamcinolone acetonide 0.1 % topical cream ; 1 (one) Application to affected areas 2-3 times daily prn itching for 0 days Quantity: 30 {Gram} Refills: 0 Ordered: 27-Dec-2023 DIDIER Ortega Start: 16-Feb-2022 End: 27-Dec-2023 Status: Inactive Comments: Accidentally sent to [facility] initially but was to go to [facility] Comment on above: [facility] valACYclovir 1000 mg oral tablet (20 sources) Herpesvirus Nucleoside Analog DNA Polymerase Inhibitor, Herpes Simplex Virus Nucleoside Analog DNA Polymerase Inhibitor, Herpes Zoster Virus Nucleoside Analog DNA Polymerase Inhibitor Start: 08-13-2021 End: 08-20-2021 take 1 tablet by mouth three times daily Valtrex 1 GM Oral Tablet ; 1 (one) Tablet TID for 7 days Quantity: 21 {Tablet} Refills: 0 Ordered: 13-Aug-2021 SUSHMA Navarro Start: 13-Aug-2021 End: 20-Aug-2021 Status: Inactive Comments: She is . Comment on above: She is . vancomycin 125 mg oral capsule (9 sources) Glycopeptide Antibacterial Start: 09-06-2024 End: 09-16-2024 vancomycin 125 mg capsule ; 1 Capsule 4 times per day for 10 days Quantity: 40 {Capsule} Refills: 0 Ordered: 06-Sep-2024 SUSHMA Navarro Start: 06-Sep-2024 End: 16-Sep-2024 Status: Inactive Problems Active Problems Problem Classification Problem Date Documented Da te Episodic/Chronic Abdominal pain (3 sources) Abdominal pain; Translations: [Unspecified abdominal pain] Onset: 07-16-2024 Episodic Acute bronchitis (20 sources) Acute bronchitis; Translations: [Acute bronchitis, unspecified] 09-18-2012 Episodic Allergic reactions (20 sources) Contact dermatitis; Translations: [Unspecified contact dermatitis, unspecified cause] 02-16-2022 Episodic Comment on above: has had testing and is allergic to multiple triggers Asthma (20 sources) Asthma - currently dormant; Translations: [Other asthma] 07-21-2023 Chronic Comment on above: had as child Cardiac dysrhythmias (20 sources) Palpitations; Translations: [Palpitations] 11-13-2013 Episodic Chronic obstructive pulmonary disease and bronchiectasis (20 sources) Bronchitis; Translations: [Bronchitis, not specified as acute or chronic] 04-13-2018 Episodic Esophageal disorders (20 sources) Gastroesophageal reflux disease; Translations: [Gastro-esophageal reflux disease without esophagitis] 04-25-2024 Chronic Fever of unknown origin (20 sources) Fever; Translations: [Fever, unspecified] 05-08-2013 Episodic Genitourinary symptoms and ill-defined conditions (20 sources) Urinary symptoms ; Translations: [Unspecified symptoms and signs involving the genitourinary system] 07-21-2023 Episodic Immunizations and screening for infectious disease (12 sources) Patient encounter status; Translations: [Encounter for immunization] Onset: 5 Episodic Inflammation; infection of eye (except that caused by tuberculosis or sexually transmitteddisease) (20 sources) Conjunctivitis; Translations: [Unspecified conjunctivitis] 07-20-2022 Episodic Intestinal infection (20 sources) Clostridium difficile diarrhea; Translations: [Enterocolitis due to Clostridium difficile, not specified as recurrent] 09-06-2024 Episodic Menstrual disorders (20 sources) Oligomenorrhea; Translations: [Oligomenorrhea, unspecified] 09-13-2011 Chronic Mycoses (20 sources) Candidiasis of mouth; Translations: [Candidal stomatitis] 03-20-2020 Episodic Other connective tissue disease (20 sources) Lateral epicondylitis of right humerus; Translations: [Lateral epicondylitis, right elbow] 07-21-2023 Episodic Other gastrointestinal disorders (20 sources) Diarrhea; Translations: [Diarrhea, unspecified] 09-05-2024 Episodic Other gastrointestinal disorders (3 sources) Diarrhea, unspecified; Translations: [Diarrhea, unspecified] Onset: 5 Episodic Other gastrointestinal disorders (3 sources) Loose stool; Translations: [Other fecal abnormalities] 12-12-2024 Episodic Other gastrointestinal disorders (2 sources) Dysphagia; Translations: [Dysphagia, unspecified] 07-16-2024 Episodic Other gastrointestinal disorders (1 source) Other fecal abnormalities; Translations: [Other fecal abnormalities] Onset: 5 Episodic Other non-traumatic joint disorders (20 sources) Pain in left shoulder; Translations: [Pain in joint, shoulder region] 09-07-2016 Episodic Other nutritional; endocrine; and metabolic disorders (20 sources) Body mass index 30+ - obesity; Translations: [Body mass index (BMI) 31.0-31.9, adult] 04-14-2018 Chronic Other screening for suspected conditions (not mental disorders or infectious disease) (2 sources) Cancer cervix screening status; Translations: [Encounter for screening for malignant neoplasm of cervix] Onset: 5 11-08-2024 Episodic Other upper respiratory disease (20 sources) Allergic rhinitis; Translations: [Allergic rhinitis, unspecified] 04-25-2024 Chronic Other upper respiratory disease (20 sources) Nasal congestion; Translations: [Nasal congestion] 03-14-2024 Episodic Other upper respiratory infections (20 sources) Sinusitis; Translations: [Chronic sinusitis, unspecified] 11-05-2018 Chronic Other upper respiratory infections (20 sources) Acute sinusitis; Translations: [Acute sinusitis, unspecified] 10-31-2018 Episodic Pneumonia (except that caused by tuberculosis or sexually transmitted disease) (20 sources) Pneumonia; Translations: [Pneumonia, unspecified organism] 09-26-2014 Episodic Residual codes; unclassified (4 sources) Gestation period, 39 weeks; Translations: [39 weeks gestation of ] 11-19-2019 Episodic Residual codes; unclassified (20 sources) Family history of cardiac disorder; Translations: [Family history of ischemic heart disease and other diseases of the circulatory system] 07-21-2023 Episodic Residual codes; unclassified (20 sources) Non-smoker; Translations: [Other specified health status] 07-21-2023 Episodic Residual codes; unclassified (20 sources) Not up to date with immunizations; Translations: [Other specified personal history presenting hazards to health] 07-21-2023 Episodic Residual codes; unclassified (2 sources) Family history of malignant neoplasm of pancreas; Translations: [Family history of malignant neoplasm of digestive organs] 10-14-2024 Episodic Residual codes; unclassified (1 source) Other specified personal risk factors, not elsewhere classified; Translations: [Other specified personal history presenting hazards to health] 10-14-2024 Episodic Skin and subcutaneous tissue infections (20 sources) Paronychia of finger; Translations: [Cellulitis of unspecified finger] 08-23-2017 Episodic Thyroid disorders (20 sources) Hypothyroidism; Translations: [Hypothyroidism, unspecified] 12-27-2023 Chronic Unclassified (20 sources) deliveries 10-31-2018 Comment on above: 2. Unclassified (20 sources) Number of Children 10-31-2018 Comment on above: 2. Unclassified (20 sources) Number of Pregnancies 10-31-2018 Comment on above: 2. Unclassified (17 sources) Follow up for chronic condition - The patient is here for follow-up of hypothyroidism. Note for Chronic condition follow-up: OBGYN was managing this and then pt had to switch to a different OBGYN and they do not manage this medication, pt would like for you to manage, pt had TSH September 2022.Feels good on the medication.Taking regularly. 12-27-2023 Unclassified (1 source) At risk for genetic disorder 10-14-2024 Viral infection (20 sources) Herpes zoster; Translations: [Zoster without complications] 07-21-2023 Episodic Past or Other Problems Problem Classification Problem Date Documented Da te Episodic/Chronic Other gastrointestinal disorders (1 source) Dysphagia, unspecified; Translations: [Dysphagia, unspecified] Onset: 08-09-2024 Episodic Other gastrointestinal disorders (1 source) Other dysphagia; Translations: [Other dysphagia] Onset: 08-13-2024 Episodic Unclassified (20 sources) UTI - Symptoms include urinary frequency and urinary urgency. Onset was gradual 5 day(s) ago. The symptoms occur constantly. The patient describes this as moderate in severity and worsening. Associated symptoms do not include fever, nausea or vomiting. Note for UTI: No chance of per patient. Does have some vaginal itching so would like to have diflucan. 07-21-2023 Unclassified (20 sources) Conjunctivitis - The onset of the conjunctivitis has been acute and has been occurring in an increasing pattern for 1 day. The course has been worsening. The conjunctivitis is described as moderate. There has been associated eye discharge, eye pain, itchy eyes, nasal stuffiness, sinus pain and watery eyes, while there has been no blurred vision, headache or sore throat. Note for Conjunctivitis: also is sensitive to light; more red yesterday and this am 07-20-2022 Unclassified (20 sources) Rash - The onset of the rash has been acute and has been occurring for 4 days. The rash is characterized as red and raised above the skin. The rash was first seen on the neck. It spread to the trunk (on both breasts) and the upper extremity (bilat). There has been associated itching and erythema. There has been associated itching, while there has been no chills, fever or pain. Note for Rash: Has been using calamine lotion and zyrtec. 02-16-2022 Unclassified (20 sources) Arm pain - The pain is in the right arm. The onset of the pain has been acute and has been occurring in a persistent pattern for 2 weeks. The course has been constant. The pain is described as moderate. Note for Pain: Pt is having shooting pain from her elbow to her forearm. 09-06-2021 Unclassified (20 sources) Rash - The onset of the rash has been acute and has been occurring in a persistent pattern for 4 days. The rash is characterized as grouped in crops. The rash was first seen on the abdomen. There has been no progression. There has been associated itching and pain. Note for Rash: Feels like a nerve pain. 08-13-2021 Unclassified (20 sources) sick - Patient is here with complaints. First they are going to start to try and get again so her OBGYN started her on metformin, levothyroxine - which she has been taking. On Monday she started letrozole. On Monday she started with dizziness, fever high 102, diarrhea, headache (frontal and behind the right eye) and some facial pain. Her ear does not hurt but felt wet when she woke up. No cough, runny nose, or sore throat. She called her OBGYN and they said it sounded like maybe a virus so to come and see us. She did stop all of her medications in case they were contributing. Diarrhea is getting better. 10-31-2018 Unclassified (20 sources) Cold Symptoms - Symptoms include nasal congestion, ear fullness, sore throat, fever, general malaise and facial pain. The onset was sudden 5 day(s) ago. The symptoms occur constantly. The patient describes this as moderate in severity and worsening. The patient is not currently being treated for this problem. Risk factors do not include smoking. 07-10-2018 Unclassified (20 sources) Rash - Note for Rash: Check rash to see if it's drug reaction. Pt started Augmentin 6 days ago and now has a rash on her arms and legs. reviewed by [facility] 04-13-2018 Unclassified (20 sources) Cold Symptoms - Symptoms include sneezing, nasal congestion, runny nose, productive cough, fever (earlier in the week, highest 101) and headache, but do not include ear pain, sore throat, scratchy throat or dry cough. The onset was sudden 1 week(s) ago. The symptoms occur constantly. The patient describes this as moderate in severity and worsening. Current treatment includes NSAIDs. Note for Upper respiratory infection: Cold symptoms have improved but cough is getting worse. reviewed by [facility] 04-07-2018 Unclassified (20 sources) eye symptoms - Patient is here with complaints that last night her eyes started to itch/ache/and had some yellow discharge. They are not red. Her daughter was in last week and had pink eye. 09-04-2017 Unclassified (20 sources) Hand pain - The onset of the hand pain has been sudden (last night) and has been occurring in a persistent pattern. The course has been constant. The hand pain is characterized as a mild to moderate. The hand pain is described as being located in the long finger (on left hand. Squeezed out pus., sore). There has been no associated fever. There have been no previous diagnostic tests. There has been no previous evaluations. There has been no previous occupational therapy. There have been no previous surgeries. There has been no use of assistive devices. Note for Hand pain: soaking in Epsom salt and neosporin 08-23-2017 Unclassified (20 sources) Cold Symptoms - Symptoms include nasal congestion, runny nose, sore throat, dry cough, headache and facial pain, but do not include ear pain, productive cough, chills or general malaise. The onset was gradual 6 day(s) ago. The symptoms occur constantly. The patient describes this as moderate in severity and unchanged. Current treatment includes allergy medications (no improvement with this). The patient has been exposed to an individual with similar symptoms. Medical history includes seasonal allergies, recurrent sinusitis, asthma (did when she was younger) and tonsillectomy, but patient denies history of recurrent strep pharyngitis or recurrent ear infections. 07-13-2017 Unclassified (20 sources) Cold Symptoms - Symptoms include runny nose, sore throat (now is only in the mornings), dry cough and headache, but do not include nasal congestion, ear pain (but they have been itchy), fever (did but it is better), chills or general malaise (did but better as well as chills). The onset was gradual 1 week(s) ago. The symptoms occur constantly. The patient describes this as moderate in severity and improving. Current treatment includes NSAIDs. The patient has been exposed to an individual with similar symptoms (family). Medical history includes seasonal allergies, but patient denies history of recurrent sinusitis, recurrent strep pharyngitis, asthma, tonsillectomy or recurrent ear infections. 06-26-2017 Unclassified (20 sources) Shoulder pain - The onset of the shoulder pain has been acute and has been occurring in a persistent pattern for days. The course has been without change. The pain is characterized as a mild to moderate dull aching (shoulder pops). The pain is described as being located in the left shoulder. Note for Shoulder pain: No hx of injuries. 09-07-2016 Unclassified (20 sources) Cold Symptoms - Symptoms include nasal congestion, runny nose and sore throat, but do not include ear pain, dry cough, fever, chills, general malaise, headache or facial pain. The onset was sudden 2 day(s) ago. The symptoms occur constantly. The patient describes this as moderate in severity and unchanged. The patient has been exposed to an individual with strep. Note for Upper respiratory infection: Was seen in the office 08-09-16 with a diagnosis of sinusitis and given a prescription for a 10 day course of Cephalexin. Symptoms improved after course of antibiotic. reviewed by [facility] 08-23-2016 Unclassified (20 sources) Cold Symptoms - Symptoms include nasal congestion, runny nose, sore throat, general malaise (a little more tired but is hard to say if it is from her being sick or from not getting much sleep d/t child having an ear infection and being up during the night. Has body aches) and facial pain (has forehead pressure), but do not include ear pain, dry cough, productive cough, fever, chills or headache. The onset was sudden 10 day(s) ago. The symptoms occur constantly. The patient describes this as moderate in severity and worsening. The patient is not currently being treated for this problem. Risk factors do not include smoking. The patient has been exposed to an individual with an upper respiratory infection (family members). Medical history includes seasonal allergies, recurrent sinusitis and tonsillectomy, but patient denies history of recurrent strep pharyngitis, asthma (did have asthma when younger) or recurrent ear infections. Note for Upper respiratory infection: Is currently . Reviewed by JPK. 08-09-2016 Unclassified (20 sources) Cold Symptoms - Symptoms include nasal congestion, runny nose, sore throat, scratchy throat, general malaise, headache and facial pain, but do not include sneezing, ear pain, dry cough, productive cough or fever. The onset was sudden 1 week(s) ago. The symptoms occur constantly. The patient describes this as moderate in severity and worsening. Current treatment includes acetaminophen. Medical history includes seasonal allergies, but patient denies history of asthma. Note for Upper respiratory infection: reviewed by [facility] 06-04-2016 Unclassified (20 sources) Cold Symptoms - Symptoms include nasal congestion, sore throat, fever (didn't check), general malaise and headache, but do not include runny nose, dry cough or productive cough. The onset was gradual 4 day(s) ago. The symptoms occur constantly. The patient describes this as moderate in severity and unchanged. Current treatment includes NSAIDs. The patient has been exposed to an individual with similar symptoms (family). Medical history includes seasonal allergies, asthma (when was a child) and tonsillectomy, but patient denies history of recurrent sinusitis, recurrent strep pharyngitis or recurrent ear infections. 10-29-2015 Unclassified (20 sources) Cold Symptoms - Symptoms include nasal congestion (significant), scratchy throat, fever (started last night), headache and facial pain, but do not include runny nose, ear pain or dry cough. The onset was gradual 1 week(s) ago. The symptoms occur constantly. The patient describes this as moderate in severity and unchanged. Current treatment includes NSAIDs (but none today). Medical history includes seasonal allergies, recurrent sinusitis, asthma (inactive-had as child) and tonsillectomy, but patient denies history of recurrent strep pharyngitis or recurrent ear infections. 04-17-2015 Unclassified (20 sources) Cold Symptoms - Symptoms include nasal congestion, runny nose (nasal drainage is clear), sore throat (intermittent but worsening today) and productive cough, but do not include ear pain or fever (had a fever on Monday and Mon; tmax 100.3). The onset was gradual 5 day(s) ago. The symptoms occur constantly. The patient describes this as moderate in severity and unchanged. The patient is not currently being treated for this problem. The patient has been exposed to an individual with similar symptoms (). Medical history includes seasonal allergies, asthma (as a child) and tonsillectomy, but patient denies history of recurrent sinusitis, recurrent strep pharyngitis or recurrent ear infections. 09-26-2014 Unclassified (20 sources) Cold Symptoms - Symptoms include nasal congestion, runny nose (drainage is yellow), purulent discharge, fever, chills, general malaise and facial pain, but do not include ear pain, sore throat, dry cough or headache. The onset was gradual 6 day(s) ago. The symptoms occur constantly. The patient describes this as moderate in severity and worsening. Current treatment includes NSAIDs. Medical history includes seasonal allergies and recurrent sinusitis. 12-04-2013 Unclassified (20 sources) Palpitations - The symptoms first began 1 month(s) ago. The onset has been gradual. Each episode lasts approximately 1 hour. The symptoms occur 2 time(s) per day . The symptoms are getting worse. The palpitations are described as fast, irregular and skipped. Associated features do not include arm pain, chest pain, diaphoresis, dizziness, faintness, jaw pain, nausea, shortness of breath or tired/fatigue. There are no precipitating factors. There are no aggravating factors. There are no relieving factors. There is no medical history of CAD, CHF, TIA, thyroid disorder, diabetes, depression or anxiety. Note for Palpitations: Pt has had occasional episodes over the years with irregular heartbeats, but only lasting a few seconds to a minute. In the last week, pt c/o episodes at least daily, with them lasting up to an hour at times. 11-13-2013 Unclassified (20 sources) Cold Symptoms - Symptoms include sore throat, fever (100.4 this morning at home.), chills, general malaise and headache. The onset was sudden 1 week(s) ago. The symptoms occur frequently. The patient describes this as moderate in severity and worsening. Current treatment includes acetaminophen. Medical history includes seasonal allergies. Note for Upper respiratory infection: reviewed by [facility] 05-08-2013 Unclassified (20 sources) Cold Symptoms - Symptoms include sneezing, nasal congestion, runny nose (drainage is a thick yellow), fever (started last night 101), general malaise, headache and facial pain (around the eyes, cheeks), but do not include sore throat or dry cough. The onset was sudden 3 day(s) ago. The symptoms occur constantly. The patient describes this as moderate in severity and worsening. Current treatment includes acetaminophen (is ; last dose was 10:30am). The patient has not been exposed to an individual with similar symptoms. Medical history includes seasonal allergies, but patient denies history of recurrent sinusitis, recurrent strep pharyngitis, asthma, tonsillectomy or recurrent ear infections. Note for Upper respiratory infection: Initially thought it might be her allergies. Took 2 doses of diflucan recently for thrush (of breast). No breast redness or pain. 10-26-2012 Unclassified (20 sources) Cold Symptoms - Symptoms include ear fullness, sore throat, scratchy throat, dry cough (occassional), fever (102.6) and headache, but do not include sneezing, nasal congestion or runny nose. The onset was gradual 5 day(s) ago (but gotten worse sat.). The symptoms occur constantly. The patient describes this as moderate in severity and worsening. Current treatment includes acetaminophen (last at 1 pm). The patient has been exposed to an individual with similar symptoms. Medical history includes seasonal allergies, recurrent sinusitis and recurrent strep pharyngitis, but patient denies history of asthma, tonsillectomy or recurrent ear infections. Note for Upper respiratory infection: reviewed by [facility] 09-18-2012 Unclassified (20 sources) missed menses - LMP-07/16 (54 days after last period), had brownish d/c on 08/09, has been off ocp's since 03/2010, nl pap 03/03, has been tring to conceive since Mar 2011. Has had several negative tests. Had work-up with [facility] in the fall and would like to pursue additional work up/testing at this time... 09-13-2011 Unclassified (20 sources) missed periods - Pt states that she went off of orthotricyclen last Mar. She states since the beginning of the year she has only had 4 periods one in Aug, November, December and February. They normally last around 7 days, are not abnormally heavy (has some heavy days some light days). She has mild cramping but nothing significant. She does not think she is . In general feels well.Started OCP 12/2007 and was on them until 03/2010. Started having periods age 10. Regular periods prior to OCP. No side effects on OCP and periods predictable. Had period after stopping OCP in Mar and Apr but then not again until Aug. Has done multiple tests at home and all have been negative thru the year.Last pap and pelvic 12/2009. 03-17-2011 Unclassified (20 sources) Painful swollen eye - Painful red swollen left eye. Started yesterday. No fever. 11-17-2010 Unclassified (14 sources) Cold Symptoms - Symptoms include nasal congestion, dry cough, wheezing and fever (last night 100.5). The onset was 1 week(s) ago. The patient describes this as mild and worsening. Current treatment includes allergy medications and NSAIDs. The patient has been exposed to an individual with an upper respiratory infection. 03-14-2024 Unclassified (13 sources) Heartburn - The onset of the heartburn has been acute and has been occurring in a persistent (gets better at times) pattern for 4 days. The course has been constant. The heartburn is characterized as burning. The heartburn is described as being located in the epigastrium. The heartburn does not radiate. The symptoms are relieved by antacids. Note for Heartburn: Pt tried Famotidine last night which helped.Monday for lunch she had sloppy joes - usually does marycarmen seltzer if needs it but it kept persisting. Drank sparkling water, parmesan chicken, and peanut m&ms as well. 04-25-2024 Unclassified (11 sources) Cold Symptoms - Symptoms include nasal congestion, ear pain, ear fullness, general malaise and facial pain, but do not include sneezing, runny nose, non-purulent sputum, purulent discharge, sore throat, scratchy throat, hoarseness, dry cough, productive cough, wheezing, fever, chills or headache. The onset was gradual 3 week(s) ago. The symptoms occur constantly. The patient describes this as moderate in severity and unchanged. Current treatment includes allergy medications (zyrtec last taken at 8am). The patient has been exposed to an individual with similar symptoms, but has not been exposed to an individual with a cough, an individual with an upper respiratory infection, an individual with strep or secondhand smoke. Medical history includes seasonal allergies. Note for Upper respiratory infection: Patient states she was sick with a congestion cold 3 weeks ago.Most symptoms have resolved except for the sinus pressure and pain. Even saw the dentist because of the pain but teeth were not an issue. 08-21-2024 Unclassified (1 source) Cold Symptoms - Symptoms include nasal congestion, ear pain, ear fullness, general malaise and facial pain, but do not include sneezing, runny nose, non-purulent sputum, purulent discharge, sore throat, scratchy throat, hoarseness, dry cough, productive cough, wheezing, fever, chills or headache. The onset was gradual 3 week(s) ago. The symptoms occur constantly. The patient describes this as moderate in severity and unchanged. Current treatment includes allergy medications (zyrtec last taken at 8am). The patient has been exposed to an individual with similar symptoms, but has not been exposed to an individual with a cough, an individual with an upper respiratory infection, an individual with strep or secondhand smoke. Medical history includes seasonal allergies. Note for Upper respiratory infection: Patient states she was sick with a congestion cold 3 weeks ago.Most symptoms have resolved except for the sinus pressure and pain. 08-21-2024 Unclassified (8 sources) Diarrhea - The onset of the diarrhea has been acute and has been occurring in an intermittent pattern for 1 week. The stools are watery. The symptoms have been associated with fever and nausea. Note for Diarrhea: Household had gastro and pt thought she had it last week, diarrhea, nausea but no vomiting, pt was feeling better (more formed stool) and then started with diarrhea (watery) and nausea again yesterday, no vomiting, low grade fever.No abnormal, foul odor.7 BMs yesterday and only one so far today.No nausea currently.Will have crampy abd pain that improves after BM. 09-30-2024 Unclassified (4 sources) UTI symptoms - Symptoms include urinary urgency and abdominal pain, but do not include dysuria. The pain is located in the suprapubic area. There is no radiation. The patient describes the pain as dull. Onset was gradual 2 day(s) ago. There is no known event that preceded symptom onset. The symptoms occur intermittently. The patient describes this as moderate in severity and improving. Associated symptoms do not include fever or nausea. Note for UTI: Pt had night sweats last 2 nights but no fever. Pt also has a fine red rash on her arms, no pain or itching.Recently treated for cdiff and stool is variable so wanted to be sure this isn't related. 11-21-2024 Results Test Name Value Interpretation Reference Range Facility Urine testOrdered By: Arnold Puente on 02-18-2025 HCG ( test) Ql (U) Negative [facility] Comment on above: Very dilute urine sp ecimens, as indicated by a low specificgravity, may not contain packaging sales representative levels of hCG. If is still suspected, a first morning urinespecimen should be collected 48 hours later and tested. Calprotectin, Stoolon [address] 228 ug/g Abnormal 0-120 [facility] Comment on above: Result Comment: Conc entration Interpretation Follow-Up < 5 - 50 ug/g Normal None >50 -120 ug/g Borderline Re-evaluate in 4-6 weeks >120 ug/g Abnormal Repeat as clinically indicated Performed at: - [facility] [id number] Fire Prevention Captain: Jailyn Gonsalves MD, Phone: [phone] Performed By: #### L [id number] #### [facility] [address] [place], [address] Calprotectin stoolOrdered By : Jannette Saba on 12-13-2024 Calprotectin stool 228 ug/g High 0-120 [facility] Comment on above: Concentration Interp retation Follow-Up< 5 - 50 ug/g Normal None>50 -120 ug/g Borderline Re-evaluate in 4-6 weeks >120 ug/g Abnormal Repeat as clinically indicatedPerformed at: [facility] [id number] Director: Jailyn Gonsalves MD, Phone: [phone] CULTURE, URINE, ROUTINEon CULTURE, URINE, ROUTINE SEE NOTE Normal [facility] Comment on above: Result Comment: CULTURE, URINE, ROUTINE Micro Number: [id number] Test Status: Final Specimen Source: Urine Specimen Quality: Adequate Result: No Growth Performed By: #### 3 95 #### [facility] [address], [address] [place] [address] Teller Coordinator: Reed Hernandez MD LIPID PANEL, [facility] 05-0 Cholesterol [Mass/Vol] 181 mg/dL Normal <200 [facility] Comment on above: Performed By: #### 7 600, 899 #### [facility] [address], [address] [place] [address] Teller Coordinator: Reed Hernandez MD Cholesterol in HDL [Mass/Vol] 48 mg/dL Low > OR = 50 [facility] Comment on above: Performed By: #### 7 600, 899 #### [facility] [address], [address] [place] [address] Teller Coordinator: Reed Hernandez MD Cholesterol in LDL [Mass/Vol] 117 mg/dL High [facility] Comment on above: Result Comment: Refe rence range: <100 Desirable range <100 mg/dL for primary prevention; <70 mg/dL for patients with CHD or diabetic patients with > or = 2 CHD risk factors. LDL-C is now calculated using the Quoc-David calculation, which is a validated novel method providing better accuracy than the Friedewald equation in the estimation of LDL-C. Quoc SS et al. ORALIA. 2013;310(19): 9960-5233 (http://education.[employer].MyJobCompany/faq/LYU890) Performed By: #### 7 600, 899 #### [facility] [address], [address] [place] [address] Teller Coordinator: Reed Hernandez MD Cholesterol.total/Chol esterol in HDL [Mass ratio] 3.8 {ratio} Normal <5.0 [facility] Comment on above: Performed By: #### 7 600, 899 #### [facility] [place] [address] Teller Coordinator: Reed Hernandez MD NON HDL CHOLESTEROL 133 mg/dL (calc) High <130 [facility] Comment on above: Result Comment: For patients with diabetes plus 1 major ASCVD risk factor, treating to a non-HDL-C goal of <100 mg/dL (LDL-C of <70 mg/dL) is considered a therapeutic option. Performed By: #### 7 600, 899 #### [facility] [address], [address] [place] [address] Teller Coordinator: Reed Hernandez MD Triglyceride [Mass/Vol] 72 mg/dL Normal <150 [facility] Comment on above: Performed By: #### 7 600, 899 #### [facility] [address], [address] [place] [address] Teller Coordinator: Reed Hernandez MD TSHon 11-22-2024 TSH Qn 2.37 m[IU]/L Normal [facility] Comment on above: Result Comment: Refe rence Range > or = 20 Years 0.40-4.50 Ranges First trimester 0.26-2.66 Second trimester 0.55-2.73 Third trimester 0.43-2.91 Performed By: #### 7 600, 899 #### [facility] [address], [address] [place] [address] Teller Coordinator: Reed Hernandez MD Laboratory - Chemistry and C hemistry - challengeon 11-21-2024 Cholesterol [Mass/Vol] 181 mg/dL Normal [facility] [employer] Cholesterol in HDL [Mass/Vol] 48 mg/dL Abnormal [employer] Cholesterol in LDL [Mass/Vol] 117 mg/dL Abnormal [employer] Ketones Ql (U) Negative Normal [employer] pH (U) 5.5 [pH] Normal [employer] Specific gravity (U) [Rel density] <1.005 Normal [employer] Triglyceride [Mass/Vol] 72 mg/dL Normal [employer] TSH Qn 2.37 m[IU]/L Normal [employer] Urobilinogen Qn (U) 0.2 mg/dL Normal [facility] Laboratory - Hematology and Cell countson 11-21-2024 Hemoglobin Ql (U) trace, hemolyzed Abnormal [facility] Laboratory - Specimen inform ationon 11-21-2024 Appearance (U) clear Normal [facility] Color (U) yellow Normal [facility] Laboratory - Urinalysison Glucose Test strip (U) [Mass/Vol] Negative Normal [facility] Leukocyte esterase Test strip Ql (U) Negative Normal [facility] Nitrite Ql (U) Negative Normal [facility] Protein Ql (U) Negative Normal [facility] No Panel Informationon 11-21 CHOL/HDLC RATIO 3.8 Normal [facility] CULTURE, URINE, ROUTINE SEE NOTE Normal [facility]. NON HDL CHOLESTEROL 133 Abnormal [facility] CNOVon 11-08-2024 CNOV Office Visit (OBGYWM ) -- USHA MATA ([id number]) 1990 F Date Time Provider Department 11/08/24 9:45 AM ARCELIA WILKS During your visit today, we recorded the following information about you: Blood pressure Weight Height Last Period 128/80 103.4 kg 1.645 m 10/28/24 Arcelia Wilks APRN.[facility] 11/08/2024 10:02 AM Addendum Web Manager offered: Patient declines. Kerr is a 34 year old who presents for an annual gynecologic exam without complaints. 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 Recent genetics consult - heterozygous variant of unknown significance in one copy of her BRCA2 gene - no changes in medical management recommended at this time per genetics. Still get period: Yes, monthly. Has not had to use Provera lately. Bleeding amount bothersome: No Bleeding between periods: No Period symptoms: None Time with current partner: 18 years Number of lifetime partners: 1 control frequency: Always, condoms HPV vaccine: No; HPV:negative Last pap smear: 09/13/2021 History of abnormal pap: No, all prior PAP smears have been normal Bothersome pelvic pain: No Last mammogram: never OB History Gravida3 Para3 Term3 Preterm0 AB0 Living3 SAB0 IAB0 Ectopic0 Multiple0 Live Births3 Vacation Planner History LMP: 10/28/2024, Having periods Age at Menarche: 10 Age at First : Age at Menopause: Vacation Planner History Comments: Sexual Activity: Yes; Male Contraception: Condom Menstrual Tracking History Flowsheet Row Office Visit from 11/08/2024 in OB/Gynecology Period Cycle (Days) 30 Period Duration (Days) 6 Menstrual Flow Moderate PAST MEDICAL HISTORY Diagnosis Date BRCA2 gene mutation positive in female heterozygous variant of unknown significance in one copy of her BRCA2 gene C. difficile colitis GERD (gastroesophageal reflux disease) Hypothyroidism PCOS (polycystic ovarian syndrome) Tumor right ear BAP1-inactivated melanocytic tumor PAST SURGICAL HISTORY Procedure Laterality Date SNGL x3 ENDOMETRIAL BIOPSY 10/27/2021 [facility] neg results HEMATOMA EVACUATION 11/2022 had infection in csection incision 6 weeks FAMILY HISTORY Problem Relation Age of Onset Anxiety disorder Mother OCD- Eating disorder other (basal cell carcinoma) Mother Hypertension Father Heart Father Valve Repair Anxiety disorder Sister ADD/ADHD Sister ADD/ADHD Brother GERD Brother Barretts Esophagus Brother Rheumatologic disease Brother ADD/ADHD Brother Lung Cancer Maternal Grandmother Hepatitis C Maternal Grandmother Pancreatic Cancer Maternal Grandfather Heart Failure Paternal Grandmother other (multiple myeloma [other]) Maternal Aunt Kidney Disease Maternal Aunt hereditary other (alport syndrome) Maternal Aunt other (lung mass) Maternal Uncle Alzheimer's Disease Paternal Uncle Kidney transplant Maternal cousin SOCIAL HISTORY Social History Tobacco Use Smoking status: Never Smokeless tobacco: Never Vaping Use Vaping status: Never Used Substance Use Topics Alcohol use: Not Currently Drug use: Never REVIEW OF SYSTEMS Abdomen: + recent C Diff infection Bladder: No dysuria, gross hematuria, urinary frequency, urinary urgency, or incontinence. Breast: No breast lumps, nipple d/c, overlying skin changes, redness or skin retraction. Allergies and current medication updated:Yes SENSITIVE EXAM: The sensitive examination was discussed with the Patient or Patient's Authorized Vegetable Sorter. As applicable, any other physician, advance practice provider, medical student, or other health professional student that will be observing or involved in the sensitive examination for educational or training purposes was discussed with the Patient or Authorized Vegetable Sorter. The Patient or Authorized Vegetable Sorter has agreed to proceed with the sensitive examination. (Sensitive examination includes inspection and/or palpation of the breasts, pelvis, prostate and anorectal regions). EXAM: BP 128/80 Ht 5' 4.764 (1.65m) Wt 228 lb (103.4kg) LMP 10/28/2024 BMI 38.22 kg/(m2). GENERAL: pleasant, female in no apparent distress HEENT: Normocephalic, atraumatic, mucus membranes moist, and no lesions NECK: Supple, full range of motion, no adenopathy, and thyroid normal DERMATOLOGY: Normal, without lesions, non-icteric, and non-hirsute BREAST: soft, non-tender, symmetric, no dominant mass, normal nipple-areolar complex, no lymphadenopathy, and no nipple discharge CHEST: Normal inspiratory effort ABDOMEN: soft, non-tender, and no masses PELVIC: external genitalia with mild erythema, normal Bartholin's glands, urethra, [place]'s glands, no vulvar lesions, no cervical lesions, + grade 1 cystocele, physiologic discharge present, normal appearing perineal body and perianal region BIMANUAL: uterus normal size, shape and consistency, no adnexal mas (more content not included)... Normal [facility] HIGH RISK HUMAN PAPILLOMA ACOSTA (HPV), PCR FOR DETECTION AND GENOTYPINGon 11-08-2024 HPV 16 Ag Ql (Unsp spec) Not detected Normal Not detected [facility] Comment on above: Order Comment: Speci men Type: FLUID SPECIMEN Ordering Facility: [facility] Address: [address] [place] [address] Performed By: #### H PVHRT #### [facility] CLIA [id number] [address] [place] [address] [place] HPV 18 Ag Ql (Unsp spec) Not detected Normal Not detected [facility] Comment on above: Order Comment: Speci men Type: FLUID SPECIMEN Ordering Facility: [facility] Address: [address] [place] [address] Performed By: #### H PVHRT #### [facility] CLIA [id number] [address] [place] [address] [place] HPV 31+33+35+39+45+51+52+5 6+58+59+66+68 DNA BOBBY+probe Ql (Cvx) Not detected Normal Not detected [facility] Comment on above: Order Comment: Speci men Type: FLUID SPECIMEN Ordering Facility: [facility] Address: [address] [place] [address] Result Comment: High Risk HPV Other Type includes HPV types 31, 33, 35, 39, 45, 51, 52, 56, 58, 59, 66 and 68. Performed By: #### H PVHRT #### [facility] CLIA [id number] [address] [place] [address] [place] PAP TESTon 11-08-2024 ADEQUACY Normal [facility] Comment on above: Order Comment: Speci men Type: FLUID SPECIMEN Ordering Facility: [facility] Address: [address] [place] [address] Result Comment: Sati sfactory for interpretation. No endocervical component Performed By: #### L [id number] #### [facility] CLIA [id number] [address] [place] [address] [place] CASE REPORT Normal [facility] Comment on above: Order Comment: Speci men Type: FLUID SPECIMEN Ordering Facility: [facility] Address: [address] [place] [address] Result Comment: Gyne cologic Cytology Report Case: [id number] Authorizing Provider: Arcelia Wilks APRN.[employer] Collected: 11/08/2024 09:57 AM Ordering Location: OB/Gynecology Received: 11/08/2024 11:18 AM First Screen: Carson Brady Tech Specimen: Pap Test, ThinPrep, Cervix Performed By: #### L [id number] #### [facility] CLIA [id number] [address] [place], [place] [id number] [place] CLINICAL HISTORY, CYTOLOGY, PROCESS OPERATOR Routine Exam Normal [facility] Comment on above: Order Comment: Speci men Type: FLUID SPECIMEN Ordering Facility: [facility] Address: [address] [place] [address] Performed By: #### L [id number] #### [facility] CLIA [id number] [address] [place] [address] [place] FINAL PERFORMING LAB Normal [facility] Comment on above: Order Comment: Speci men Type: FLUID SPECIMEN Ordering Facility: [facility] Address: [address] [place] [address] Result Comment: Tech nical component, compensation specialist screening performed at [facility], [address] [place] [address] [place] [address] CLIA# [id number] Diagnostic interpretation performed at [facility], [address] [place] [address] [place] [address] CLIA# [id number] Skates Operator: Semaj Staley M.D. Performed By: #### L [id number] #### [facility] CLIA [id number] [address] [place] [address] [place] INTERPRETATION, CYTOLOGY, PROCESS OPERATOR Normal [facility] Comment on above: Order Comment: Speci men Type: FLUID SPECIMEN Ordering Facility: [facility] Address: [address] [place] [address] Result Comment: Nega tive for intraepithelial lesion or malignancy. at 1547 EDT Performed By: #### L [id number] #### [facility] CLIA [id number] [address] [place], [place] [id number] [place] LMP 10/28/2024 Normal [facility] Comment on above: Order Comment: Speci men Type: FLUID SPECIMEN Ordering Facility: [facility] Address: [address] [place] [address] Performed By: #### L [id number] #### [facility] CLIA [id number] [address] [place] [address] [place] PAP DISCLAIMER COMMENT The Pap Smear is a screening test for cervical cancer. False negative results occur with all screening tests, emphasizing the need for rescreening at recommended intervals, and clinical correlation. Normal [facility] Comment on above: Order Comment: Speci men Type: FLUID SPECIMEN Ordering Facility: [facility] Address: [address] [place] [address] Performed By: #### L [id number] #### [facility] CLIA [id number] [address] [place] [address] [place] PAP CASH POSTING CLERK COMMENT This specimen has be en analyzed by the ThinPrep Imaging System, an automated imaging and review system, which assists the laboratory in evaluating cells on ThinPrep Pap tests. Following automated imaging, selected slaughter from every slide are reviewed by a compensation specialist. Normal [facility] Comment on above: Order Comment: Speci men Type: FLUID SPECIMEN Ordering Facility: [facility] Address: [address] [place] [address] Performed By: #### L [id number] #### [facility] CLIA [id number] [address] [place] [address] [place] GENETIC SENDOUTon 10-14-2024 Genetic Test Name Custom Panel Invalid Interpretation Code [facility] Comment on above: Order Comment: ATTEN TION: DNA and RNA kit. Follow instructions in kit for collection of blood in EDTA tube and PAX tube. Patient will bring kit with her. Can be drawn at any time of day. Name of Test:->Custom Panel Billing type:->Direct Specimen Type->Blood Specimen requirements:->blood in edta, blood in pax Specimen Tube->EDTA and PAX What is the sendout facility name, if known?->[facility] Invalid Interpretation Code [facility] Comment on above: Order Comment: ATTEN TION: DNA and RNA kit. Follow instructions in kit for collection of blood in EDTA tube and PAX tube. Patient will bring kit with her. Can be drawn at any time of day. Name of Test:->Custom Panel Billing type:->Direct Specimen Type->Blood Specimen requirements:->blood in edta, blood in pax Specimen Tube->EDTA and PAX What is the sendout facility name, if known?->[facility] Miscellaneous Results Patient results sc anned into [employer] Invalid Interpretation Code [facility] Comment on above: Order Comment: ATTEN TION: DNA and RNA kit. Follow instructions in kit for collection of blood in EDTA tube and PAX tube. Patient will bring kit with her. Can be drawn at any time of day. Name of Test:->Custom Panel Billing type:->Direct Specimen Type->Blood Specimen requirements:->blood in edta, blood in pax Specimen Tube->EDTA and PAX What is the sendout facility name, if known?->[facility] CAMPYLOBACTER, CULTUREon CAMPYLOBACTER CULTURE Normal [facility] Comment on above: Result Comment: TEST NOT PERFORMED The specimen exceeds stability for the test requested. Performed By: #### 3 2114, 8625, 4487, 681 #### [facility] [address] [place] [address], [address] [place] [address] Teller Coordinator: Reed Hernandez MD #### [id number] #### [facility] [address] [facility] [place], [place] Teller Coordinator: Antonino Velez M.D.,PhD #### 4475 #### [facility], [address] [place] [address] Teller Coordinator: Buffy Montoya MD,PhD,CAPRICE GIARDIA AG, EIA, STOOLon GIARDIA AG, EIA, STOOL SEE NOTE [facility] Comment on above: Result Comment: GIARDIA AG, EIA, STOOL Micro Number: [id number] Test Status: Final Specimen Source: Stool Specimen Quality: Adequate Giardia Result 1: Not Detected Reference Range: Not Detected NOTE: Due to intermittent shedding, one negative sample does not necessarily rule out the presence of a parasitic infection. Performed By: #### 9 1664, 09725 #### [facility] [address], [address] [place], [place] [address] Teller Coordinator: Reed Hernandez MD LACTOFERRIN, QL, STOOLon LACTOFERRIN, QL, STOOL Positive Abnormal Negative [facility] Comment on above: Result Comment: Lactoferrin in the stool is a marker for fecal leukocytes and is a non-specific indicator of intestinal inflammation that may be detected in patients with acute infectious colitis or inflammatory bowel disease. The diagnosis of an acute infectious process or active IBD cannot be established solely on the basis of a positive result. This test may not be appropriate for immunocompromised persons. In addition, this test is not FDA cleared for patients with a history of HIV and/or Hepatitis B and C, patients with a history of infectious diarrhea (within 6 months), and patients having had a colostomy and/or ileostomy within 1 month. Performed By: #### 3 2114, 8625, 4487, 681 #### [facility] [address], [address] [place] [address] Teller Coordinator: Reed Hernandez MD #### [id number] #### [facility] [address] [facility] [place] [place] Teller Coordinator: Antonino Velez M.D.,PhD #### 4475 #### [facility], [address] [place] [address] Teller Coordinator: Buffy Montoya MD,PhD,CAPRICE OVA AND PARASITES, CONC AND PERM SMEARon 10-11-2024 TRICHROME (1) SEE NOTE Normal [facility] Comment on above: Result Comment: OVA AND PARASITES, CONC AND PERM SMEAR Micro Number: [id number] Test Status: Final Specimen Source: Stool Specimen Quality: Adequate CONCENTRATION 1: No ova or parasites seen TRICHROME 1: No ova or parasites seen Routine Ova and Parasite exam may not detect some parasites that occasionally cause diarrheal illness. Cryptosporidium Antigen and/or Cyclospora and Isospora Exam may be ordered to detect these parasites. One negative sample does not necessarily rule out the presence of a parasitic infection. For additional information, please refer to https://Buzzni.girnarsoft/faq/HTK488 (This link is being provided for informational/ educational purposes only.) Performed By: #### 9 179, 64705 #### [facility] [address], [address] [place] [address] Teller Coordinator: Reed Hernandez MD SALMONELLA/SHIGELLA CULT, CA MPY EIA AND SHIGA TOXIN W/RFL E. COLI O157 CULTon 10-11-2024 CAMPYLOBACTER SPP. AG,EIA SEE NOTE Normal [facility] Comment on above: Result Comment: CAMPYLOBACTER SPP. AG,EIA Micro Number: [id number] Test Status: Final Specimen Source: Stool Specimen Quality: Adequate Campy Ag Result: Not Detected Reference Range: Not Detected Performed By: #### 9 1663, 62930 #### [facility] [address], [address] [place] [address] Teller Coordinator: Reed Hernandez MD SALMONELLA AND SHIGELLA, CULTURE SEE NOTE Abnormal [facility] Comment on above: Result Comment: SALMONELLA AND SHIGELLA, CULTURE Micro Number: [id number] Test Status: Final Specimen Source: Stool Specimen Quality: Adequate Result: Salmonella species Gastrointestinal salmonellosis (non-typhoidal) generally resolves without antimicrobial treatment. Therefore, susceptibility testing is not routinely performed but may be requested for systemic or unusually severe disease. Comment: Organism submitted to [facility] for confirmation. Performed By: #### 9 1663, 64294 #### [facility] [address], [address] [place] [address] Teller Coordinator: Reed Hernandez MD SHIGA TOXINS, EIA W/RFL TO E.COLI O157 CULTURE SEE NOTE Normal [facility] Comment on above: Result Comment: SHIGA TOXINS, EIA W/RFL TO E.COLI O157 CULTURE Micro Number: [id number] Test Status: Final Specimen Source: Stool Specimen Quality: Adequate Shiga Toxin: Not Detected Reference Range: Not Detected Performed By: #### 9 1663, 02110 #### [facility] [address], [address] [place] [address] Teller Coordinator: Reed Hernandez MD YERSINIA, CULTUREon 10-12-19 YERSINIA, CULTURE SEE NOTE Normal [facility] Comment on above: Result Comment: YERSINIA, CULTURE Micro Number: [id number] Test Status: Final Specimen Source: Stool Specimen Quality: Adequate Result: No Yersinia isolated Performed By: #### 9 1664, 99333 #### [facility] [address], [address] [place] [address] Teller Coordinator: Reed Hernandez MD CLOSTRIDIUM DIFFICILE TOXIN/ GDH W/REFL TO PCRon 10-02-2024 CLOSTRIDIUM DIFFICILE TOXIN/GDH W/REFL TO PCR SEE NOTE Abnormal [facility] Comment on above: Order Comment: FASTI NG: UNKNOWN Result Comment: CLOSTRIDIUM DIFFICILE TOXIN/GDH W/REFL TO PCR Micro Number: [id number] Test Status: Final Specimen Source: Fecal Specimen Quality: Adequate GDH Antigen: Detected Toxin A and B: Detected COMMENT: Toxigenic C. difficile detected For additional information, please refer to http://education.KargoCard/faq/PYH615 (This link is being provided for informational/educational purposes only.) Performed By: #### 9 1664, 48524 #### [facility] [address], [address] [place] [address] Teller Coordinator: Reed Hernandez MD CLOSTRIDIUM DIFFICLE TOXIN P CR [CCL]on 10-02-2024 RESULT CRITICAL? YES Normal [facility] Comment on above: Result Comment: { CA LLED TO { READ BACK BY Performed By: #### 2 [id number] #### [facility],[address] [place] [address] C difficile PCR Positive Abnormal [facility] Comment on above: Result Comment: A po sitive PCR result may indicate C. difficile infection or colonization. The positive predictive value of this test for C. difficile infection is highest for patients with clinically significant diarrhea (>=3 unformed stools in 24 h) who do not have an alternative explanation (e.g., recent receipt of laxatives). [place] [address] Semaj Staley III, M.D. [id number] Performed By: #### 2 34930 #### [facility],[address] [place], [place] [id number] C diff Tox gens Stl Ql BOBBY+p robeon 10-01-2024 C. difficile toxin genes BOBBY+probe Ql (Stl) Positive Abnormal Negative for C. difficile toxin by PCR [facility] Comment on above: Order Comment: Speci men Type: STOOL SPECIMEN Ordering Facility: [facility] Address: [address] [place], [place] [address] Performed By: #### 5 4067-4 #### [facility] CLIA [id number] [address] [place] [address] [place] CBC (INCLUDES DIFF/PLT)on Basophils (Bld) [#/Vol] 0.019 10*3/uL Normal 0-200 [facility] Comment on above: Performed By: #### 1 7451, 0833 #### [facility] [address], [address] [place] [address] Teller Coordinator: Reed Hernandez MD Basophils/100 WBC (Bld) 0.3 % Normal [facility] Comment on above: Performed By: #### 1 1, 9221 #### [facility] [address], [address] [place] [address] Teller Coordinator: Reed Hernandez MD Eosinophils (Bld) [#/Vol] 0.161 10*3/uL Normal 15-500 [facility] Comment on above: Performed By: #### 1 0231, 4746 #### [facility] [place] [address] Teller Coordinator: Reed Hernandez MD Eosinophils/100 WBC (Bld) 2.6 % Normal [facility] Comment on above: Performed By: #### 1 0231, 6399 #### [facility] [place] [address] Teller Coordinator: Reed Hernandez MD Erythrocyte distribution width (RBC) [Ratio] 13.4 % Normal 11.0-15.0 [facility] Comment on above: Performed By: #### 1 0231, 6399 #### [facility] [place] [address] Teller Coordinator: Reed Hernandez MD Hematocrit (Bld) [Volume fraction] 40.1 % Normal 35.0-45.0 [facility] Comment on above: Performed By: #### 1 0231, 6399 #### [facility] [place] [address] Teller Coordinator: Reed Hernandez MD Hemoglobin (Bld) [Mass/Vol] 12.7 g/dL Normal 11.7-15.5 [facility] Comment on above: Performed By: #### 1 0231, 6399 #### [facility] [place] [address] Teller Coordinator: Reed Hernandez MD Lymphocytes (Bld) [#/Vol] 1.5 10*3/uL Normal 850-3900 [facility] Comment on above: Performed By: #### 1 0231, 6399 #### [facility] [place] [address] Teller Coordinator: Reed Hernandez MD Lymphocytes/100 WBC (Bld) 24.2 % Normal [facility] Comment on above: Performed By: #### 1 0231, 6399 #### [facility] [place] [address] Teller Coordinator: Reed Hernandez MD MCH (RBC) [Entitic mass] 26.1 pg Low 27.0-33.0 [facility] Comment on above: Performed By: #### 1 0231, 6399 #### [facility] [place] [address] Teller Coordinator: Reed Hernandez MD MCHC (RBC) [Mass/Vol] 31.7 g/dL Low 32.0-36.[address] [facility] Comment on above: Result Comment: For adults, a slight decrease in the calculated MCHC value (in the range of 30 to 32 g/dL) is most likely not clinically significant; however, it should be interpreted with caution in correlation with other red cell parameters and the patient's clinical condition. Performed By: #### 1 0231, 6399 #### [facility] [place] [address] Teller Coordinator: Reed Hernandez MD MCV (RBC) [Entitic vol] 82.5 fL Normal 80.0-100.0 [facility] Comment on above: Performed By: #### 1 0231, 6399 #### [facility] of [place] [address] Teller Coordinator: Reed Hernandez MD Monocytes (Bld) [#/Vol] 0.459 10*3/uL Normal 200-950 [facility] Comment on above: Performed By: #### 1 0231, 6399 #### [facility] [place] [address] Teller Coordinator: Reed Hernandez MD Monocytes/100 WBC (Bld) 7.4 % Normal [facility] Comment on above: Performed By: #### 1 0231, 6399 #### [facility] [place] [address] Teller Coordinator: Reed Hernandez MD Neutrophils (Bld) [#/Vol] 4.061 10*3/uL Normal 5201-4965 [facility] Comment on above: Performed By: #### 1 0231, 6399 #### [facility] [place] [address] Teller Coordinator: Reed Hernandez MD Neutrophils/100 WBC (Bld) 65.5 % Normal [facility] Comment on above: Performed By: #### 1 0231, 6399 #### [facility] [place] [address] Teller Coordinator: Reed Hernandez MD Platelet mean volume (Bld) [Entitic vol] 9.7 fL Normal 7.5-12.5 [facility] Comment on above: Performed By: #### 1 0231, 6399 #### [facility] [place] [address] Teller Coordinator: Reed Hernandez MD Platelets (Bld) [#/Vol] 389 10*3/uL Normal 140-400 [facility] Comment on above: Performed By: #### 1 0231, 6399 #### [facility] [place] [address] Teller Coordinator: Reed Hernandez MD RBC (Bld) [#/Vol] 4.86 10*6/uL Normal 3.80-5.10 [facility] Comment on above: Performed By: #### 1 0231, 6399 #### [facility] [place] [address] Teller Coordinator: Reed Hernandez MD WBC (Bld) [#/Vol] 6.2 10*3/uL Normal 3.8-10.8 [facility] Comment on above: Performed By: #### 1 0231, 6399 #### [facility] [place] [address] Teller Coordinator: Reed Hernandez MD [facility] 10-01-2024 Albumin [Mass/Vol] 4.3 g/dL Normal 3.6-5.1 [facility] Comment on above: Performed By: #### 1 0231, 6399 #### [facility] [place] [address] Teller Coordinator: Reed Hernandez MD Albumin/Globulin [Mass ratio] 1.5 {ratio} Normal 1.0-2.5 [facility] Comment on above: Performed By: #### 1 0231, 6399 #### [facility] [place] [address] Teller Coordinator: Reed Hernandez MD ALP [Catalytic activity/Vol] 78 U/L Normal 31-125 [facility] Comment on above: Performed By: #### 1 0231, 6399 #### [facility] of [address], [address] [place] [address] Teller Coordinator: Reed Hernandez MD ALT [Catalytic activity/Vol] 14 U/L Normal 6-29 [facility] Comment on above: Performed By: #### 1 0231, 6399 #### [facility] [place] [address] Teller Coordinator: Reed Hernandez MD AST [Catalytic activity/Vol] 15 U/L Normal 10-30 [facility] Comment on above: Performed By: #### 1 023, 6399 #### [facility] of [address], [address] [place] [address] Teller Coordinator: Reed Hernandez MD Bilirubin [Mass/Vol] 0.4 mg/dL Normal 0.2-1.2 [facility] Comment on above: Performed By: #### 1 023, 6399 #### [facility] [place] [address] Teller Coordinator: Reed Hernandez MD BUN/CREATININE RATIO SEE NOTE: Normal 6-22 [facility] Comment on above: Result Comment: Not Reported: BUN and Creatinine are within reference range. Performed By: #### 1 0231, 6399 #### [facility] [place] [address] Teller Coordinator: Reed Hernandez MD Calcium [Mass/Vol] 9.1 mg/dL Normal 8.6-10.2 [facility] Comment on above: Performed By: #### 1 0231, 6399 #### [facility] of [address], [address] [place] [address] Teller Coordinator: Reed Hernandez MD Chloride [Moles/Vol] 105 mmol/L Normal 98-110 [facility] Comment on above: Performed By: #### 1 0231, 6399 #### [facility] of [address], [address] [place] [address] Teller Coordinator: Reed Hernandez MD CO2 [Moles/Vol] 25 mmol/L Normal 20-32 [facility] Comment on above: Performed By: #### 1 0231, 6399 #### [facility] of [address], [address] [place] [address] Teller Coordinator: Reed Hernandez MD Creatinine [Mass/Vol] 0.79 mg/dL Normal 0.50-0.[address] [facility] Comment on above: Performed By: #### 1 0231, 6399 #### [facility] of [address], [address] [place] [address] Teller Coordinator: Reed Hernandez MD GFR/1.73 sq M.predicted among non-blacks MDRD (S/P/Bld) [Vol rate/Area] 99 mL/min/{1.73_m2} Normal > OR = 60 [facility] Comment on above: Performed By: #### 1 0231, 6399 #### [facility] of [address], [address] [place] [address] Teller Coordinator: Reed Hernandez MD Globulin (S) [Mass/Vol] 2.8 g/dL Normal 1.9-3.7 [facility] Comment on above: Performed By: #### 1 0231, 6399 #### [facility] of [address], [address] [place] [address] Teller Coordinator: eRed Hernandez MD Glucose [Mass/Vol] 94 mg/dL Normal 65-99 [facility] Comment on above: Result Comment: Fasting reference interval Performed By: #### 1 0231, 6399 #### [facility] of [address], [address] [place] [address] Teller Coordinator: Reed Hernandez MD Potassium [Moles/Vol] 4.1 mmol/L Normal 3.5-5.[address] [facility] Comment on above: Performed By: #### 1 0231, 6399 #### [facility] of [address], [address] [place] [address] Teller Coordinator: Reed Hernandez MD Protein [Mass/Vol] 7.1 g/dL Normal 6.1-8.1 [facility] Comment on above: Performed By: #### 1 0231, 6399 #### [facility] of [address], [address] [place] [address] Teller Coordinator: Reed Hernandez MD Sodium [Moles/Vol] 141 mmol/L Normal 135-146 [facility] Comment on above: Performed By: #### 1 0231, 6399 #### [facility] [address], [address] [place] [address] Teller Coordinator: Reed Hernandez MD Urea nitrogen [Mass/Vol] 7 mg/dL Normal 7-25 [facility] Comment on above: Performed By: #### 1 0231, 6399 #### [facility] [address], [address] [place] [address] Teller Coordinator: Reed Hernandez MD TEST IN QUEST[facility]- [facility] [place] [facility] IONon 10-01-2024 COMMENT Normal [facility] Comment on above: Order Comment: FASTI NG: UNKNOWN Result Comment: To p revent further delays in testing, please email your resolution to [email or web address] or fax the resolution to [phone]. Please include the Specimen Number and DOC on all communications. Performed By: #### 9 0485, 23534 #### [facility] [address], [address] [place] [address] Teller Coordinator: Reed Hernandez MD CONTACT: FROZEN RAW STOOL Normal [facility] Comment on above: Order Comment: FASTI NG: UNKNOWN Performed By: #### 9 1664, 53731 #### [facility] [address], [address] [place], [place] [address] Teller Coordinator: Reed Hernandez MD QUESTION/PROBLEM: Normal [facility] Comment on above: Order Comment: FASTI NG: UNKNOWN Result Comment: There is a question regarding the following specimen submitted and/or the test requested. Performed By: #### 9 1664, 89154 #### [facility] [address], [address] [place] [address] Teller Coordinator: Reed Hernandez MD QUESTION: Normal [facility] Comment on above: Order Comment: FASTI NG: UNKNOWN Result Comment: [place] CLARIFY ORDER FOR NOROVIRUS Performed By: #### 9 1664, 66838 #### [facility] [address] [place] [address], [address] [place] [address] Teller Coordinator: Reed Hernandez MD Laboratory - Chemistry and C hemistry - challengeon 09-30-2024 Albumin [Mass/Vol] 4.3 g/dL Normal 3.6 - 5.1 g/dL [employer] Albumin/Globulin [Mass ratio] 1.5 {ratio} Normal 1.0 - 2.5 [employer], [employer] ALP [Catalytic activity/Vol] 78 U/L Normal 31 - 125 U/L [employer], [facility].; [employer] ALT [Catalytic activity/Vol] 14 U/L Normal 6 - 29 U/L [employer] AST [Catalytic activity/Vol] 15 U/L Normal 10 - 30 U/L [employer] Bilirubin [Mass/Vol] 0.4 mg/dL Normal 0.2 - 1 .2 mg/dL [employer], [employer] Calcium [Mass/Vol] 9.1 mg/dL Normal 8.6 - 10. 2 mg/dL [employer] Chloride [Moles/Vol] 105 mmol/L Normal 98 - 11 0 mmol/L [employer] CO2 [Moles/Vol] 25 mmol/L Normal 20 - 32 mmol/L [facility].; [facility]. Creatinine [Mass/Vol] 0.79 mg/dL Normal 0.50 - 0.97 mg/dL [facility].; [facility], [facility]. GFR/1.73 sq M.predicted among non-blacks MDRD (S/P/Bld) [Vol rate/Area] 99 mL/min/{1.73_m2} Normal [facility].; [facility], [facility] Glucose [Mass/Vol] 94 mg/dL Normal 65 - 99 mg/dL [facility].; [facility], [facility]. Potassium [Moles/Vol] 4.1 mmol/L Normal 3.5 - 5.3 mmol/L [facility].; [facility], [facility] Protein [Mass/Vol] 7.1 g/dL Normal 6.1 - 8.1 g/dL [facility], [facility].; [facility], [facility] Sodium [Moles/Vol] 141 mmol/L Normal 135 - 146 mmol/L [facility].; [facility] [employer] [facility], [facility]. Urea nitrogen [Mass/Vol] 7 mg/dL Normal 7 - 25 mg/dL [facility].; [facility] [employer], [facility]. Laboratory - Hematology and Cell countson 09-30-2024 Basophils (Bld) [#/Vol] 0.019 10*3/uL Normal 0 - 200 {cells/uL} [facility].; [facility]. Basophils/100 WBC (Bld) 0.3 % Normal [facility].; [facility], [facility]. Eosinophils (Bld) [#/Vol] 0.161 10*3/uL Normal 15 - 500 {cells/uL} [facility].; [facility], [facility]. Eosinophils/100 WBC (Bld) 2.6 % Normal [facility].; [facility], [facility] Erythrocyte distribution width (RBC) [Ratio] 13.4 % Normal 11.0 - 15.0 % [facility], [facility].; [employer], [facility] Hematocrit (Bld) [Volume fraction] 40.1 % Normal 35.0 - 45.0 % [facility].; [facility], [facility]. Hemoglobin (Bld) [Mass/Vol] 12.7 g/dL Normal 11.7 - 15.5 g/dL [facility], [facility].; [facility], [facility]. Lymphocytes (Bld) [#/Vol] 1.5 10*3/uL Normal 850 - 3900 {cells/uL} [facility], [facility].; [facility], [facility]. Lymphocytes/100 WBC (Bld) 24.2 % Normal [facility].; [facility], [facility]. MCH (RBC) [Entitic mass] 26.1 pg Abnormal 27.0 - 33.0 pg [facility], [facility].; [facility], [facility]. MCHC (RBC) [Mass/Vol] 31.7 g/dL Abnormal 32.0 - 36.0 g/dL [facility], [facility].; [facility], [facility]. MCV (RBC) [Entitic vol] 82.5 fL Normal 80.0 - 100.0 fL [facility], [facility].; [facility], [facility]. Monocytes (Bld) [#/Vol] 0.459 10*3/uL Normal 200 - 950 {cells/uL} [facility], [facility].; [facility], [facility]. Monocytes/100 WBC (Bld) 7.4 % Normal [facility], [facility].; [facility], [facility]. Neutrophils (Bld) [#/Vol] 4.061 10*3/uL Normal 1500 - 7800 {cells/uL} [facility], [facility].; [employer], [facility]. Neutrophils/100 WBC (Bld) 65.5 % Normal [facility].; [facility], [facility]. Platelet mean volume (Bld) [Entitic vol] 9.7 fL Normal 7.5 - 12.5 fL [facility], [facility].; [facility], [facility]. Platelets (Bld) [#/Vol] 389 10*3/uL Normal 140 - 400 [facility], [facility].; [facility], [facility]. RBC (Bld) [#/Vol] 4.86 10*6/uL Normal 3.80 - 5.10 {Million/u L} [facility].; [facility] WBC (Bld) [#/Vol] 6.2 10*3/uL Normal 3.8 - 10.8 [facility]; [facility] No Panel Informationon 09-30 BUN/CREATININE RATIO SEE NOTE: Normal 6 - 22 [facility]; [facility] CAMPYLOBACTER CULTURE Normal [facility]; [facility] CAMPYLOBACTER SPP. AG,EIA SEE NOTE Normal [facility]; [facility], [facility] Work Phone: CLOSTRIDIUM DIFFICILE TOXIN/GDH W/REFL TO PCR SEE NOTE Abnormal [facility]; [facility], [facility] Work Phone: CONTACT: FROZEN RAW STOOL Normal [facility]; [facility] Work Phone: GIARDIA AG, EIA, STOOL SEE NOTE Normal [facility]; [facility] GLOBULIN 2.8 Normal 1.9 - 3.7 [facility]; [facility] LACTOFERRIN, QL, STOOL Positive Abnormal [facility]; [facility] OVA AND PARASITES, CONC AND PERM SMEAR SEE NOTE Normal [facility]; [facility], [facility] QUESTION/PROBLEM: SEE NOTE Normal [facility]; [facility], [facility] Work Phone: QUESTION: SEE NOTE Normal [facility]; [facility], [facility] Work Phone: SALMONELLA AND SHIGELLA, CULTURE SEE NOTE Abnormal [facility]; [facility], [facility] Work Phone: SHIGA TOXINS, EIA W/RFL TO E.COLI O157 CULTURE SEE NOTE Normal [facility]; [facility], [facility] Work Phone: YERSINIA, CULTURE SEE NOTE Normal [facility]; [facility] C DIFF COMPLETEon 09-05-2024 C DIFF COMPLETE C DIFF COMPLETE 0{ C-DIFF TOXIN _NEGATIVE__ (NRL: NEGATIVE ) 09/05/24.2015.AEL. C-DIFF AG POSITIVE { CALLED TO NIKHIL BY LUDY @ 2007 { READ BACK BY NIKHIL RA @ 2011 INTERNAL NEG QC PASS INTERNAL POS QC PASS EXTERNAL QC DONE? YES INTERPRETATION: POSITIVE Ag,POSITIVE Tox = C. Diff is present & producing toxins POSITIVE Ag,NEGATIVE Tox = C. Diff is present NEGATICE Ag,NEGATICE Tox = C. Diff is not present A low percentage of specimens may test negative for antigen but positive for toxin. A fresh specimen should be resumbitted for retesting. Normal [facility] Comment on above: Performed By: #### 2 [id number] #### [facility],[address] [place] [address] Laboratory - Microbiology an d Antimicrobial susceptibilityon 09-05-2024 C. difficile toxin A+B IA Ql (Stl) C DIFF COMPLETE Normal [facility], [facility]; [facility], [facility]. Chlamydia sp Ag IA Ql (Vag fld) Positive Abnormal [facility].; [facility] No Panel Informationon 09-05 INTERNAL NEG QC PASS Normal [facility].; [facility], [facility]. INTERNAL POS QC PASS Normal [facility], [facility].; [facility] Observation duration YES Normal [facility], [facility].; [employer] [facility] EGD Reporton 07-16-2024 EGD Report [facility] Medical Records Department [address] [place] [address] EGD Report MR#: [id number] Acct: [id number] Name: USHA MATA Rep #: [id number] : 1990 34 From: Denver Flores DO PCP: ANA Gonzalez [facility] Patient Name: Usha Mata Procedure Date: 07/16/2024 6:27 AM Date of : 1990 Age: 34 Procedure: Upper GI endoscopy Indications: Epigastric abdominal pain, Functional Dyspepsia, Dysphagia Providers: Denver Flores DO Referring MD: Gayla Navarro Medicines: Monitored Anesthesia Care Patient Profile: This is a 34 year old female. Refer to note in patient chart for documentation of history and physical. Patient has symptoms of dysphagia with solids. Complications: No immediate complications. Procedure: Pre-Anesthesia Assessment: - Prior to the procedure, a History and Physical was performed, and patient medications and allergies were reviewed. The patient is competent. The risks and benefits of the procedure and the sedation options and risks were discussed with the patient. All questions were answered and informed consent was obtained. Patient identification and proposed procedure were verified by the physician in the pre-procedure area. Mental Status Examination: alert and oriented. Airway Examination: normal oropharyngeal airway and neck mobility. Respiratory Examination: clear to auscultation. CV Examination: normal. Prophylactic Antibiotics: The patient does not require prophylactic antibiotics. Prior Anticoagulants: The patient has taken no anticoagulant or antiplatelet agents except for NSAID medication. ASA Grade Assessment: II - A patient with mild systemic disease. After reviewing the risks and benefits, the patient was deemed in satisfactory condition to undergo the procedure. The anesthesia plan was to use minimal sedation / analgesia (anxiolysis). Immediately prior to administration of medications, the patient was re-assessed for adequacy to receive sedatives. The heart rate, respiratory rate, oxygen saturations, blood pressure, adequacy of pulmonary ventilation, and response to care were monitored throughout the procedure. The physical status of the patient was re-assessed after the procedure. After obtaining informed consent, the endoscope was passed under direct vision. Throughout the procedure, the patient's blood pressure, pulse, and oxygen saturations were monitored continuously. The Endoscope was introduced through the mouth, and advanced to the second part of duodenum. The upper GI endoscopy was accomplished without difficulty. The patient tolerated the procedure well. Scope In: 6:49:31 AM Scope Out: 6:55:47 AM Total Procedure Duration Time 0 hours 6 minutes 16 seconds Findings: The Z-line was irregular and was found 40 cm from the incisors. Biopsies were taken with a cold forceps for histology. Verification of patient identification for the specimen was done. Estimated blood loss was minimal. A moderate Schatzki ring was found at the gastroesophageal junction. A guidewire was placed and the scope was withdrawn. Dilation was performed with a Savary dilator with no resistance at 57 Fr. The dilation site was examined and showed moderate mucosal disruption. Estimated blood loss was minimal. A small hiatal hernia was present. Patchy mild inflammation characterized by congestion (edema) was found in the gastric antrum and in the prepyloric region of the stomach. Biopsies were taken with a cold forceps for histology. Verification of patient identification for the specimen was done. Estimated blood loss was minimal. No gross lesions were noted in the duodenal bulb. Biopsies were taken with a cold forceps for histology. Verification of patient identification for the specimen was done. Estimated blood loss was minimal. Impression: - Z-line irregular, 40 cm from the incisors. Biopsied. - Moderate Schatzki ring. Dilated. - Small hiatal hernia. - Chronic gastritis. Biopsied. - No gross lesions in the duodenal bulb. Biopsied. Recommendation: - Discharge patient to home. - Resume previous diet. - Continue present medications. - Await pathology results. Procedure Code(s): --- Professional --- 57468, 59,51, Esophagogastroduodenoscopy , flexible, transoral; with insertion of guide wire followed by passage of dilator(s) through esophagus over guide wire 97793, 59,51, Esophagogastroduodenoscopy , flexible, transoral; with biopsy, single or multiple CPT copyright 2021 [employer]. All rights reserved. The codes documented in this report are preliminary and upon certified procedural coder review may be revised to meet current compliance requirements. Denver Flores DO 07/16/2024 7:03:04 AM This report has been signed electronically. Number of Addenda: 0 Note Initiated On: (more content not included)... Normal [facility] H Pylori (initial)on 024 H Pylori (initial) ------ Patient Age/Sex Location Account Attending Physician USHA MATA 34/ EN [id number] Denver Flores DO Specimen: [id number] Received: 07/16/24 Status: AILYN Branch Num: [id number] Spec Type: IMMUNO Subm Dr: Denver Flores DO PHYSICIAN INSTITUTION [place] [address] SPECIMEN INFORMATION: Tissue Source: B. Gastric antrum Clinical Info: Gastroesophageal reflux disease Specimen Number: [id number] CPT code: 32449 METHODOLOGY: Deparaffinized sections of prefer/formalin-fixed tissue or PAP/DQ stained slides are incubated with monoclonal/polyclonal antibodies/oligonucleotide probes. Localization is made via biotin free immunoperoxidase method. Appropriate controls are performed and reacted as expected. Results on target cell population are indicated in the following table: RESULTS: ANTIBODY / CLONE RESULT H Pylori (polyclonal) negative These tests were developed and their performance characteristics determined by [facility]. They may not have been cleared or approved by the U.S. Food and Drug Administration. The FDA has determined that such clearance or approval is not necessary. The above immunohistochemical/dualIS H markers are ordered and reviewed by the Pathologist. INTERPRETATION: B. Gastric antrum, biopsy: Negative for Helicobacter pylori organisms. [email or web address] 07/18/24 Signed (signature on file) Dr. Tr Salazar MD 07/19/24 0906 Normal [facility] Comment on above: Performed By: #### P H.PYLORI #### [facility] [address] [place], [address] MR/POSTOP.ANEon 07-16-2024 MR/POSTOP.ANE [facility] Medical Records Department [address] [place] [address] Anesthesia Postop Eval I 07/16/24 0706 MR#: [id number] Acct: [id number] Name: USHA MATA Rep #: [id number] : 1990 34 From: Nathanael Dean PCP: ANA Gonzalez Status:[place] [facility] [place] Race: C Location: [place] [address] Anesthesia: Postop Eval I Current Vital Signs Temperature: 98.3 F Pulse Rate: 104 Blood Pressure: 123/46 Respiratory Rate: 18 Pulse Ox: 98 Oxygen Delivery Method: Room Air Assessment Airway patent: Yes Spontaneous unlabored respirations: Yes Mental status: Awake and Calm nausea: No Vomiting: No Anesthesia Complication: No Fluid Hydration Crystalloid volume administer (ml): 40 Total IV fluid infused: 40 Progress Note Anesthesia document: Postop Eval 1 completed: Yes 07/16/24706 Date Nathanael Dean Cosignyesi Signature: Date CC: Signed Normal [facility] MR/[id number] 07-16-2024 MR/POSTOPAN2 [facility] Medical Records Department [address] [place] [address] Anesthesia Postop Eval II 07/16/24 0803 MR#: [id number] Acct: [id number] Name: USHA MATA Rep #: [id number] : 1990 34 From: Al Brennan MD PCP: ANA Gonzalez Status:[facility] [place] Race: C Location: [place] Anesthesia Postop Eval I Sum Postop Eval Completion status Anesthesia document: Postop Eval 1 completed: Yes Anesthesia Postop Eval I Summary Anesthesia Postop Eval I Summary: Anesthesia Postop Eval I: Assessment Summary Airway patent Yes 07/16/24 07:07 [email or web address] Spontaneous unlabored Yes 07/16/24 07:07 [email or web address] respirations Mental status Awake,Calm 07/16/24 07:07 [email or web address] nausea No 07/16/24 07:07 [email or web address] Vomiting No 07/16/24 07:07 [email or web address] Anesthesia Postop Eval I: Fluid Summary Crystalloid volume administer 40 07/16/24 07:07 [email or web address] (ml) Colloids volume administered ( ml) Blood Product volume administered (ml) Total IV fluid infused 40 07/16/24 07:07 [email or web address] Anesthesia Postop Eval I: Summary Notes Anesthesia Complication No 07/16/24 07:07 [email or web address] Anesthesia Complication Comment: Post-operative progress note Anesthesia: Postop Eval II Evaluation Mental status: Awake Pain Level: 0 nausea: No Vomiting: No 07/16/24 0803 Date Al Brennan MD [facility] Signature: Date CC: Signed Normal [facility] ,Urineon 07-16-2024 Beta HCG ( test) Ql (U) Negative Normal [facility] Comment on above: Result Comment: Very dilute urine specimens, as indicated by a low specific gravity, may not contain packaging sales representative levels of hCG. If is still suspected, a first morning urine specimen should be collected 48 hours later and tested. Performed By: #### L [phone] #### [facility] [place], [address] Surgery Specimen Level Lul 07-16-2024 Surgery Specimen Level IV Patient Age/Sex Location Account Attending Physician USHA MATA 34/F EN [id number] Denver Flores DO Specimen: [id number] Received: 07/16/24 Status: AILYN Branch Num: [id number] Spec Type: EGD BIOPSY Subm Dr: Denver Flores DO HEADER OPERATION: EGD biopsy, dilation PRE-OP DIAGNOSIS: Gastroesophageal reflux disease TISSUE SUBMITTED: A. Duodenum, B. Gastric antrum, C. Distal esophagus MICROSCOPIC DIAGNOSIS A. Duodenum, Biopsy: Fragments of duodenal mucosa without villous blunting, intraepithelial lymphocytes, intraepithelial neutrophils, or dysplasia. B. Gastric Antrum, Biopsy: Fragments of gastric antral mucosa with occasional goblet cells, with no ulceration, gastritis, or organisms, including H. pylori (See Comment and Microscopic Description). C. Distal Esophagus, Biopsy: Fragments of gastroesophageal junctional mucosa with goblet cells and rare intraepithelial neutrophils and without erosion, granulation tissue, dysplasia, or polyps (See Comment). COMMENT B. The results of immunohistochemistry for Helicobacter pylori will be reported separately ([id number]). C. The goblet cells are in foveolar type mucosa adjacent to squamous mucosa. If the specimen was taken from the gastric mucosa, then this represents inflammation. If the specimen was taken form the esophagus, then this may indicate Cas Esophagus depending on macroscopic findings. Alcian blue/PAS stain with matched control supports the above diagnosis. MICROSCOPIC DESCRIPTION Slides are reviewed. B. An immunohistochemical stain for H. pylori was performed with appropriate controls and is negative, [id number]. GROSS DESCRIPTION A. Received is one container labeled with the patient name and designated duodenum. The specimen consists of one irregular fragment of light rosas soft tissue that measures 0.5 x 0.2 x .01 cm. The specimen is totally submitted in one cassette. B. Received is one container labeled with the patient name and designated gastric antrum. The specimen consists of one irregular fragment of light rosas soft tissue that measures 0.5 x 0.2 x 0.1 cm. The specimen is totally submitted in one cassette. Patient Age/Sex Location Account Attending Physician USHA MATA EN [id number] Denver Flores DO C. Received is one container labeled with the patient name and designated distal esophagus. The specimen consists of multiple irregular fragments of light rosas soft tissue that in aggregate measure 0.5 x 0.2 x 0.1 cm. The specimen is totally submitted in one cassette. /MS:cc 07/16/24 TC:5 CPT: 34948 x3, 13732. Patient Age/Sex Location Account Attending Physician USHA MATA EN [id number] Denver Flores DO Signed (signature on file) Dr. Tr Salazar MD 07/18/24 1514 Normal [facility] Comment on above: Performed By: #### P SUIV #### [facility] Laboratory [address] [place], [address] Gastroenterology Visit Repor ton 05-29-2024 Gastroenterology Visit Report [facility] Gastroenterology [address] [place] [address] OFFICE VISIT Date of Service: 05/29/24 MR#: [id number] Acct: [id number] Name: USHA MATA Rep #: [id number] : 1990 Provider: ANA Phan Age/Sex: 34/F [place] [facility] [place]: Signed Intake Intake Visit Reasons: Acid reflux Chief Complaint: Indigestion Senior Financial Reporting Analyst Required: No Allergies Sulfa (Sulfonamide Antibiotics) Adverse Reaction (Verified 11/19/19 12:45) Swelling sulfamethoxazole (From Bactrim) Adverse Reaction (Verified 11/12/14 09:55) Nausea trimethoprim (From Bactrim) Adverse Reaction (Verified 11/12/14 09:55) Nausea Is last menstrual period known: Yes Patient : No Nurse's Note: OV 05.29.24 Pt here to establish care in our office with c/o tightness and lump in throat. No previous EGD. Takes omeprazole 20mg daily. PFSH Medical History (Updated 11/19/19 @ 17:[address] Ora Vleez MD) Tachycardia Hypothyroid Surgical History (Updated 11/19/19 @ 17:[address] Ora Velez MD) Previous section Social History Smoking Status: Never smoker HPI HPI Chief Complaint: Indigestion Details: USHA MATA, is a 34 F who presents to the office today for establishment with [facility]. Pt has no pertinent medical hx. She is is here today for evaluation of epigastric pain since March 2024. She was eating a sloppy laura and almost immediately after eating it she had severe indigestion. She has never had heartburn like this before. She did have some heartburn during her pregnancies. Her PCP put her on 20 mg of omeprazole daily which relieved the majority of his symptoms. She continues to feel a lump in her throat when she swallows. It feels as if food is getting stuck in her esophagus. She has never had an EGD or colonoscopy. ROS Const Constitutional: Positive for weight change; No fatigue or fever(s) ENT ENT: No difficulty swallowing Gastro GI: No abdominal pain, belching, bloating, change in bowel habits, change in stool character, coffee ground emesis, constipation, cramping, diarrhea, heartburn, difficulty swallowing, feeling full early, excessive flatus, incontinent of stools, Vomiting blood/hematemesis, Blood in stool, loose stools, Black,tarry stools, nausea/dyspepsia, pain with swallowing, vomiting or other Musc Musculoskeletal: No joint pain Skin Skin: No yellowing of the eye or itchy eyes Psych Psychiatric: No anxiety and No depression Endo Endocrine: Positive for weight change; No fatigue Aller/Imm Allergy/Immunologic: No itchy eyes Raffi/Lymp Hematologic/Lymphatic: No easy bleeding or easy bruising Exam Const General: cooperative and comfortable Nutritional Appearance: average body habitus and well nourished [facility] Head: normal to inspection Ears: hearing grossly normal bilaterally Nose: external nose normal Face and sinus: normal facial exam Eyes General: appearance normal, both eyes and all related structures Neck Neck: normal visual inspection Chest Chest palpation inspection: normal inspection of the chest and normal palpation of entire chest wall Resp Effort Inspection: normal respiratory effort Auscultation: Bilateral: Clear to Auscultation Cardio Palpation: normal PMI Rate: regular rate Rhythm: regular rhythm GI Inspection: normal to inspection Auscultation: normal bowel sounds Percussion: normal to percussion Palpation: no hepatosplenomegaly Skin General: no rashes or lesions noted Neuro General: patient alert Extrem General: normal to inspection Psych Affect: normal affect Assessment and Plan Assessment and Plan (1) Gastroesophageal reflux disease: Plan: THis is a healthy 34 yo female pt here today for establishment with [facility]. For a month now she has been having severe heartburn. Her PCP put her on a course of omeprazole 20 mg daily. This did help but she continues to have sensation of a bolus in her throat and dysphagia. She will undergo EGD to rule out stricture, ulcer or GERD. I will increase her omeprazole to 20 mg BID. She is agreeable to this plan -EGD -increase omeprazole to BID -f/u after procedure Medications: New omeprazole 20 mg PO BID 90 caps 2RF Coding Level of Care Code Off vis,new,level 3 Diagnoses Gastroesophageal reflux disease K21.9 05/29/24 1433 Date Jannette Whitaker Signature: Date (if applicable) CC: Normal [facility] TSHon 12-28-2023 TSH Qn 3.24 m[IU]/L Normal [facility] Comment on above: Result Comment: Refe rence Range > or = 20 Years 0.40-4.50 Ranges First trimester 0.26-2.66 Second trimester 0.55-2.73 Third trimester 0.43-2.91 Performed By: #### 8 99 #### [facility] [address], [address] [place] [id number] Teller Coordinator: Reed Hernandez MD Laboratory - Chemistry and C hemistry - challengeon 12-27-2023 TSH Qn 3.24 m[IU]/L Normal [facility], [facility].; [facility], [facility]. Laboratory - Chemistry and C hemistry - challengeon 07-21-2023 Bilirubin Ql (U) Negative Normal [facility], [facility].; [place]. Ketones Ql (U) Negative Normal [facility].; [place]. pH (U) 6.0 [pH] Normal [facility].; [facility]. Specific gravity (U) [Rel density] 1.010 Normal [facility].; [place]. Urobilinogen Qn (U) 0.2 mg/dL [facility]. Laboratory - Hematology and Cell countson 07-21-2023 Hemoglobin Ql (U) moderate Abnormal [facility] [place].; [employer]. Laboratory - Specimen inform ationon 07-21-2023 Appearance (U) clear [facility]; [place]. Color (U) yellow Normal [facility]; [place]. Laboratory - Urinalysison Glucose Test strip (U) [Mass/Vol] Negative Normal [facility].; [place]. Leukocyte esterase Test strip Ql (U) small Abnormal [facility]; [place]. Nitrite Ql (U) Negative Normal [facility].; [place]. Protein Ql (U) Negative Normal [facility] [place]. No Panel Informationon 07-21 CULTURE, URINE, ROUTINE SEE NOTE Abnormal [facility].; [place]. Laboratory - Chemistry and C hemistry - challengeon 06-22-2022 Free T4 [Mass/Vol] 0.93 ng/dL 0.76-1.46 [facility] Work Phone: No Panel Informationon 06-22 Thyroid Stimulating Hormone (TSH) 2.75 uIU/mL 0.358-3.74 [facility] Work Phone: Basophil percentageon 2021 Glucose [Mass/Vol] 95 mg/dL 74-106 [facility] Work Phone: No Panel Informationon 10-05 Insulin Level 15.3 mU/L 2.6-37.6 [facility] Work Phone: Comment on above: Please Note: INSULIN METHOD & REFERENCE RANGE CHANGEEffective 08/03/2017. Serum or plasma estradiol (E 2) measurement (mass/volume)on 10-05-2021 E2 [Mass/Vol] 43.8 pg/mL [facility] Work Phone: Comment on above: NORMAL REFERENCE RAN GES FEMALE FOLLICULAR 21.4 - 164.8 pg/mL MID-CYCLE PEAK 49.9 - 367.2 pg/mL LUTEAL 40.2 - 259.0 pg/mL POST-MENOPAUSAL ON MHT <11.0 - 462.1 pg/mL NOT ON MHT <11.0 - 58.3 pg/mL MALE <11.0 - 52.5 pg/mL NOTE:[employer] HAS CONFIRMED THE DRUG FULVETRANT (FASLODEX) MAY CAUSE FALSELY ELEVATED ESTRADIOL RESULTS WHEN USING THIS TEST METHOD. IF PATIENT IS TAKING FULVESTRANT AN ALTERNATIVE METHOD SHOULD BE USED TO DETERMINE ESTRADIOL CONCENTRATION. Serum or plasma flecainide m easurement (mass/volume)on 10-05-2021 Flecainide [Mass/Vol] 9.83 ng/mL [facility] Work Phone: Comment on above: For assays employing antibodies, the possibility exists forinterference by heterophile antibodies in the samples.11.Aisha Rueda Interferences in Immunoassays - still a threat. Clin. Chem. 2000; 46: 4152-7708.This test was developed and its performance characteristicsdetermined by [employer]. It has not been cleared or approvedby the Food and Drug Administration.Reference Range:Females 31 - 35y: 0.66 - 8.75Median 3.00AMH concentrations of >= 1.06 ng/mL is correlated with abetter response to ovarian stimulation, produced moreretrievable oocytes and higher odds of live accordingto Faustino borja al. Fertility and Sterility. 2010:94:0551-3297. The current AMH test method correlates withthe study method with a slope of 0.94.Females at risk of ovarian hyperstimulation syndrome orpolycystic ovarian syndrome (PCOS) may exhibit elevatedserum AMH concentrations. AMH levels from PCOS patientsmay be 2 to 5 fold higher than age-appropriate referenceinterval values.Granulosa cell tumors of the ovary may secrete AMH alongwith other tumor markers. Elevated AMH is not specific formalignancy, and the assay should not be used exclusively todiagnose or exclude an AMH-secreting ovarian tumor. Serum or plasma progesterone measurement (mass/volume)on 10-05-2021 Progesterone [Mass/Vol] 0.64 ng/mL See Comment [facility] Work Phone: Comment on above: Progesterone Referen ce Table: UNITS Female: Follicular 0.15 - 1.40 ng/mL Luteal 3.34 - 25.56 ng/mL Mid-luteal 4.44 - 28.03 ng/mL Postmenopausal 0.0 - 0.73 ng/mL : 1st Trimester 11.22 - 90.00 ng/mL 2nd Trimester 25.55 - 89.40 ng/mL 3rd Trimester 48.40 -422.50 ng/mL Serum or plasma prolactin me asurement (mass/volume)on 10-05-2021 Prolactin [Mass/Vol] 7.2 ng/mL [facility] Work Phone: Comment on above: NORMAL REFERENCE RAN GES FEMALE NON- 2.2 - 30.3 ng/mL 8.1 - 347.6 ng/mL POST-MENOPAUSAL 0.7 - 31.5 ng/mL MALE 2.5 - 17.4 ng/mL Serum or plasma sex hormone binding globulin measurement (moles/volume)on 10-05-2021 Sex hormone binding globulin [Moles/Vol] 24.4 nmol/L [facility] Work Phone: Comment on above: Performed at: ES - [facility] [address] [place] [id number] Director: Dov Welch MD, Phone: [phone] at: - [facility] [id number] Director: Arnie Dutton PhD, Phone: [phone] Cervical or vagninal specime n microscopic examination by cytology stain (reported ason 09-07-2021 Cytology report Cyto stain Doc (Cvx/Vag) Comment [facility] Work Phone: Comment on above: The Pap smear is a s creening test designed to aid in thedetection of premalignant and malignant conditions of theuterine cervix. It is not a diagnostic procedure andshould not be used as the sole means of detecting cervicalcancer. Both false-positive and false-negative reports dooccur. Detection in cervical specim en of any of human papilloma virus (HPV) 16, 18, 31, 33,on 09-07-2021 HPV 16+18+31+33+35+39+45+5 1+52+56+58+59+66+68 DNA Probe+sig amp Ql (Cvx) Negative Negative [facility] Work Phone: Comment on above: This nucleic acid am plification test detects fourteen high- risk HPV types (16,18,31,33,35,39,45,51,52,56,58,59,66,68)without differentiation.Performed at: - [facility] [id number] Director: Sigrid Salazar MD, Phone: [phone] at: =[facility] [id number] Director: Sigrid Salazar MD, Phone: [phone] Laboratory - Cytologyon 08-24 Special Officer Automat Cyto stain Nom (Cvx/Vag) [ID] Comment [facility] Work Phone: Comment on above: Ramesh Hill, Cytot echnologist (ASCP) Laboratory - Miscellaneous t estson 09-07-2021 Service comment (Unsp spec) [Interp] Comment [facility] Work Phone: Comment on above: This liquid based Th inPrep(R) pap test was screened withthe use of an image guided system. Service comment (Unsp spec) [Interp] . [facility] Work Phone: No Panel Informationon 09-07 Pathology report final diagnosis Narrative Comment [facility] Work Phone: Comment on above: NEGATIVE FOR INTRAEP ITHELIAL LESION OR MALIGNANCY. Laboratory - Chemistry and C hemistry - challengeon 08-06-2021 Free T4 [Mass/Vol] 0.93 ng/dL 0.76-1.46 [facility] Work Phone: No Panel Informationon 08-06 Free Triiodothyronine (T3) pg/dL 2.8 pg/mL 2.18-3.98 [facility] Work Phone: Thyroid Stimulating Hormone (TSH) 2.25 uIU/mL 0.358-3.74 [facility] Work Phone: Laboratory - Microbiology an d Antimicrobial susceptibilityon 08-23-2016 S. pyogenes Ag EIA Ql (Throat) Negative Normal [facility]; [facility] Laboratory - Microbiology an d Antimicrobial susceptibilityon 10-29-2015 S. pyogenes Ag EIA Ql (Throat) Negative Normal [facility].; [facility] Laboratory - Microbiology an d Antimicrobial susceptibilityOrdered By: Heather Cronin on 05-08-2013 S. pyogenes Ag EIA Ql (Throat) Negative Normal [facility]; [facility] Laboratory - Chemistry and C hemistry - challengeon 03-17-2011 Follitropin Qn 4.4 m[IU]/mL Normal [facility].; [facility]. HCG.beta subunit Qn m[IU]/mL Normal [facility]; [facility]. Prolactin [Mass/Vol] 16.1 ng/mL Normal [facility].; [facility]. TSH Qn 3.64 m[IU]/L Normal 0.40 - 4.50 {mIU/L} [facility].; [facility]. Laboratory - Cytologyon 02-22 Microscopic observation Cyto stain Nom (Cvx) SEE NOTE Normal [facility].; [facility]. Laboratory - Hematology and Cell countson 03-17-2011 Basophils (Bld) [#/Vol] 20 {Cells}/uL Normal 0 - 200 {Cells}/uL [facility].; [facility]. Basophils/100 WBC (Bld) 0 % Normal 0 - 2 % [facility].; [facility], [facility]. Eosinophils (Bld) [#/Vol] 230 {Cells}/uL Normal 15 - 500 {Cells}/uL [facility].; [facility], [facility]. Eosinophils/100 WBC (Bld) 2 % Normal 0 - 8 % [facility], [facility].; [facility], [facility]. Erythrocyte distribution width (RBC) [Ratio] 12.8 % Normal 11.0 - 15.0 % [facility], [facility].; [facility], [facility] Hematocrit (Bld) [Volume fraction] 38.8 % Normal 35.0 - 45.0 % [facility], [facility].; [facility], [facility] Hemoglobin (Bld) [Mass/Vol] 13.1 g/dL Normal 11.7 - 15.5 g/dL [facility], [facility].; [facility], [facility] Lymphocytes (Bld) [#/Vol] 2950 {Cells}/uL Normal 850 - 3900 {Cells}/uL [facility].; [facility], [facility]. Lymphocytes/100 WBC (Bld) 31 % Normal 15 - 49 % [facility].; [facility], [facility]. MCH (RBC) [Entitic mass] 30.0 pg Normal 27.0 - 33.0 PG [facility].; [facility], [facility]. MCHC (RBC) [Mass/Vol] 33.7 g/dL Normal 32.0 - 36.0 g/dL [facility], [facility].; [facility], [facility]. MCV (RBC) [Entitic vol] 89.1 fL Normal 80.0 - 100.0 fL [facility].; [facility], [facility]. Monocytes (Bld) [#/Vol] 450 {Cells}/uL Normal 200 - 950 {Cells}/uL [facility].; [facility], [facility]. Monocytes/100 WBC (Bld) 5 % Normal 0 - 13 % [facility], [facility].; [facility], [facility]. Neutrophils (Bld) [#/Vol] 5720 {Cells}/uL Normal 1500 - 7800 {Cells}/uL [facility].; [facility], [employer] Neutrophils/100 WBC (Bld) 61 % Normal 38 - 80 % [facility] Platelets (Bld) [#/Vol] 318 10*3/uL Normal 140 - 400 10*3/uL [facility].; [facility] [employer], [employer] RBC (Bld) [#/Vol] 4.36 10*6/uL Normal 3.80 - 5.10 10*6/uL [facility].; [employer], [employer] WBC (Bld) [#/Vol] 9.4 10*3/uL Normal 3.8 - 10.8 10*3/uL [facility].; [employer]. Laboratory - Microbiology an d Antimicrobial susceptibilityon 03-17-2011 C. trachomatis DNA BOBBY+probe Ql (Unsp spec) Not detected Normal [facility].; [employer] N. gonorrhoeae DNA BOBBY+probe Ql (Unsp spec) Not detected Normal [facility].; [employer]. Laboratory - Specimen inform ationon 03-17-2011 Specimen source Nom (Unsp spec) GENITAL-CX Normal [facility].; [facility] [place] Vital Signs Date Time Vital Sign Value Performing Clinician Facility 02-18-2025 15:16-0400 Body temperature 97.1 [degF] Gayla Navarro PA Work Phone: [facility] 02-18-2025 15:16-0400 Diastolic blood pressure 80 mm[Hg] Gayla Joeer PA Work Phone: [facility] 02-18-2025 15:16-0400 Heart rate 49 /min Gayla Navarro PA Work Phone: [facility] 02-18-2025 15:16-0400 Respiratory rate 18 /min Gayla Navarro PA Work Phone: [facility] 02-18-2025 15:16-0400 SaO2% (BldA) [Mass fraction] 99 % Gayla Joeer PA Work Phone: [facility] 02-18-2025 15:16-0400 Systolic blood pressure 116 mm[Hg] Gayla Navarro PA Work Phone: [facility] 02-18-2025 13:17-0400 Body height 165.1 cm Gayla Navarro PA Work Phone: [facility] [facility] 02-18-2025 13:17-0400 Body mass index (BMI) [Ratio] 33 kg/m2 Gayla Joeer PA Work Phone: [facility] 02-18-2025 13:17-0400 Body weight 90 kg Gayla Navarro PA Work Phone: [facility] 11-21-2024 09:36-0400 Body height 165.1 cm Zahida Ortega LPN [facility] [employer] [facility], [employer] 11-21-2024 09:36-0400 Body mass index (BMI) [Ratio] 37.11 kg/m2 Zahida Ortega LPN [facility] [employer] [facility] 11-21-2024 09:36-0400 Body surface area Derived from formula 2.07 m2 Zahida Ortega LPN [facility], [facility].; [employer] [facility], [facility]. 11-21-2024 09:36-0400 Body temperature 98.7 [degF] Zahida Ortega LPN [facility] [employer], [employer] Comment on above: Method: Tympanic 11-21-2024 09:36-0400 Body weight 101.15 kg Zahida Ortega LPN [facility] [employer] 11-21-2024 09:36-0400 Diastolic blood pressure 84 mm[Hg] Zahida Ortega [employer] [facility], [facility].; [employer]. Comment on above: Patient Position: Sitting; Cuff Location : Left Arm; Cuff Size: Standard 11-21-2024 09:36-0400 Heart rate 76 /min Zahida Ortega LPN [facility] [employer]. Comment on above: Pattern: Regular 11-21-2024 09:36-0400 Systolic blood pressure 128 mm[Hg] Zahida Ortega LPN [facility] [employer] [facility], [facility]. Comment on above: Patient Position: Sitting; Cuff Location : Left Arm; Cuff Size: Standard 11-08-2024 09:33-0400 Body height 164.5 cm Arcelia Souzaanum COOPER.[employer] Work Phone: [facility] 11-08-2024 09:33-0400 Body mass index (BMI) [Ratio] 38.22 kg/m2 Arcelia Souzaanum [employer] Work Phone: [facility] 11-08-2024 09:33-0400 Body weight 103.42 kg Arcelia Wilks [employer] Work Phone: [facility] 11-08-2024 09:33-0400 Diastolic blood pressure 80 mm[Hg] Arcelia Wilks [employer] Work Phone: [facility] 11-08-2024 09:33-0400 Systolic blood pressure 128 mm[Hg] Arcelia Wilks [employer] Work Phone: [facility] 09-30-2024 10:02-0400 Body height 165.1 cm Zahida Ortega LPN [facility] 09-30-2024 10:02-0400 Body mass index (BMI) [Ratio] 39.27 kg/m2 Zahida Ortega LPN [facility] Chung [facility] 09-30-2024 10:02-0400 Body surface area Derived from formula 2.12 m2 Zahida Ortega LPN [facility] [employer] [facility], [facility]. 09-30-2024 10:02-0400 Body temperature 97.4 [degF] Zahida Ortega LPN [facility], [facility].; [employer] Comment on above: Method: Tympanic 09-30-2024 10:02-0400 Body weight 107.05 kg Zahida Ortega LPN [facility] [employer], [facility]. 09-30-2024 10:02-0400 Diastolic blood pressure 81 mm[Hg] Zahida Ortega [facility], [facility].; [employer] [facility], [employer] Comment on above: Patient Position: Sitting; Cuff Location : Left Arm; Cuff Size: Standard 09-30-2024 10:02-0400 Heart rate 81 /min Zahida Cheney Shannon [facility], [facility].; [employer], [employer] Comment on above: Pattern: Regular 09-30-2024 10:02-0400 Systolic blood pressure 118 mm[Hg] Zahida Ortega [facility], [facility].; [employer], [employer] Comment on above: Patient Position: Sitting; Cuff Location : Left Arm; Cuff Size: Standard 08-21-2024 09:03-0500 Body height 165.1 cm Elvi Hudson [facility], [facility].; [facility], [employer] 08-21-2024 09:03-0500 Body mass index (BMI) [Ratio] 39.44 kg/m2 [facility], [facility].; [employer], [employer] 08-21-2024 09:03-0500 Body surface area Derived from formula 2.13 m2 [facility], [facility].; [employer], [employer] 08-21-2024 09:03-0500 Body temperature 98.4 [degF] [facility], [facility].; [employer]. Comment on above: Method: Tympanic 08-21-2024 09:03-0500 Body [facility] 107.5 kg [facility], [facility].; [employer], [employer] 08-21-2024 09:03-0500 Diastolic blood pressure 79 mm[Hg] [facility], [facility].; [employer], [employer] Comment on above: Patient Position: Sitting; Cuff Location : Left Arm; Cuff Size: Standard 08-21-2024 09:03-0500 Heart rate 91 /min [facility], [facility].; [employer]. Comment on above: Pattern: Regular 08-21-2024 09:03-0500 Inhaled oxygen concentration 21 % Elvi Hudson [employer] [facility], [facility].; [facility] [place] [facility]. Comment on above: Room air 08-21-2024 09:03-0500 SaO2% (BldA) [Mass fraction] 98 % [facility], [facility].; [facility], [facility] 08-21-2024 09:03-0500 Systolic blood pressure 116 mm[Hg] Elvi Hudson [facility], [facility].; [employer] [facility]. Comment on above: Patient Position: Sitting; Cuff Location : Left Arm; Cuff Size: Standard 04-25-2024 09:47-0400 Body height 165.1 cm Zahida Ortega [facility], [facility].; [facility] 04-25-2024 09:47-0400 Body mass index (BMI) [Ratio] 41.93 kg/m2 Zahida Cheney Shannon [facility].; [facility] 04-25-2024 09:47-0400 Body surface area Derived from formula 2.18 m2 Zahida Ortega [employer] [facility], [facility].; [employer] [facility], [employer] 04-25-2024 09:47-0400 Body weight 114.31 kg Zahida Shravan Shannon [facility], [facility].; [employer] 04-25-2024 09:47-0400 Diastolic blood pressure 79 mm[Hg] Zahida Ortega [facility] [employer]. Comment on above: Patient Position: Sitting; Cuff Location : Left Arm; Cuff Size: Standard 04-25-2024 09:47-0400 Heart rate 83 /min Zahidajessica Ortega [employer] [facility], [facility].; [employer], [employer] Comment on above: Pattern: Regular 04-25-2024 09:47-0400 Systolic blood pressure 120 mm[Hg] Zahida Ortega [employer] [facility] [employer]. Comment on above: Patient Position: Sitting; Cuff Location : Left Arm; Cuff Size: Standard 03-14-2024 14:49-0400 Body height 165.1 cm Delbert Velez [employer] [facility], [facility].; [facility]. 03-14-2024 14:49-0400 Body mass index (BMI) [Ratio] 42.77 kg/m2 Delbert Velez [facility].; [facility], [facility]. 03-14-2024 14:49-0400 Body surface area Derived from formula 2.2 m2 Delbert Velez [facility].; [facility]. 03-14-2024 14:49-0400 Body temperature 99.8 [degF] Delbert Velez [facility].; [facility], [facility]. 03-14-2024 14:49-040 Body weight 116.58 kg Delbert Velez [facility].; [facility], [facility]. 03-14-2024 14:49-0400 Diastolic blood pressure 81 mm[Hg] Delbert Velez [facility].; [facility], [employer] Comment on above: Patient Position: Sitting; Cuff Location : Left Arm; Cuff Size: Standard 03-14-2024 14:49-0400 Heart rate 139 /min Delbert Velez [facility].; [facility], [facility]. Comment on above: Pattern: Regular 03-14-2024 14:49-0400 Inhaled oxygen concentration 21 % Delbertradha Velez [facility].; [facility], [employer] Comment on above: Room air 03-14-2024 14:49-0400 SaO2% (BldA) [Mass fraction] 97 % Delbert Velez [facility].; [facility], [facility]. 03-14-2024 14:49-0400 Systolic blood pressure 142 mm[Hg] Delbertradha Velez [facility], [facility].; [facility], [employer] Comment on above: Patient Position: Sitting; Cuff Location : Left Arm; Cuff Size: Standard 12-27-2023 11:05-0400 Body height 165.1 cm Zahida Ortega [facility], [facility].; [facility] [place] [facility]. 12-27-2023 11:05-0400 Body mass index (BMI) [Ratio] 41.6 kg/m2 Zahida Ortega [employer] [facility], [facility].; [facility] Hospital[facility]. 12-27-2023 11:05-0400 Body surface area Derived from formula 2.18 m2 Zahida Ortega LPN [facility], [facility].; [facility] [place] [facility]. 12-27-2023 11:05040 Body weight 113.4 kg Zahida Ortega [employer] [facility], [facility].; [facility] [place] [facility]. 12-27-2023 11:050400 Diastolic blood pressure 81 mm[Hg] [facility].; [facility] [place] [facility]. Comment on above: Patient Position: Sitting; Cuff Location : Left Arm; Cuff Size: Standard 12-27-2023 11:050400 Heart rate 78 /min Zahida Ortega LPN [facility].; [employer] [place] [facility]. Comment on above: Pattern: Regular 12-27-2023 11:05-0400 Systolic blood pressure 127 mm[Hg] Zahida Ortega LPN [facility].; [facility] [place] [facility]. Comment on above: Patient Position: Sitting; Cuff Location : Left Arm; Cuff Size: Standard 10-11-2023 14:25-0400 Body height 165.1 cm Sheyla Newsome MD Work Phone: [facility] 10-11-2023 14:25040 Body weight 112.95 kg Sheyla Newsome MD Work Phone: [facility] 10-11-2023 14:25-0400 Diastolic blood pressure 88 mm[Hg] Sheyla Newsome MD Work Phone: [facility] 10-11-2023 14:25-0400 Systolic blood pressure 144 mm[Hg] Sheyla Newsome MD Work Phone: [facility] 07-21-2023 11:07-0500 Body height 165.1 cm Zahida [facility]te[facility] LPN [facility].; [facility] [place] [facility]. 07-21-2023 11:07-0500 Body mass index (BMI) [Ratio] 41.77 kg/m2 Zahida Ortega [facility].; [employer] [facility] 07-21-2023 11:07-0500 Body surface area Derived from formula 2.18 m2 Zahida Garzaach [employer] [facility].; [employer] 07-21-2023 11:07-0500 Body temperature 98.5 [degF] Zahida Ortega [facility], [facility].; [employer]. Comment on above: Method: Tympanic 07-21-2023 11:07-0500 Body weight 113.85 kg Zahida Ortega [facility], [facility].; [employer]. 07-21-2023 11:07-0500 Diastolic blood pressure 85 mm[Hg] Zahida Ortega [facility], [facility].; [employer]. Comment on above: Patient Position: Sitting; Cuff Location : Right Arm; Cuff Size: Standard 07-21-2023 11:07-0500 Heart rate 84 /min Zahida Ortega [facility], [facility].; [employer], [employer] Comment on above: Pattern: Regular 07-21-2023 11:07-0500 Systolic blood pressure 133 mm[Hg] Zahida Ortega [facility].; [employer]. Comment on above: Patient Position: Sitting; Cuff Location : Right Arm; Cuff Size: Standard 07-20-2022 15:00-0500 Body height 165.1 cm Yasmine Etienne MA [facility], [facility].; [employer] [place] [facility]. 07-20-2022 15:00-0500 Body mass index (BMI) [Ratio] 35.94 kg/m2 Yasmine Etienne MA [facility], [facility].; Edwards [employer] [facility]. 07-20-2022 15:00-0500 Body surface area Derived from formula 2.04 m2 Yasmine Etienne MA [facility], [facility].; [employer]. 07-20-2022 15:00-0500 Body temperature 98.2 [degF] Yasmine Etienne MA [facility].; [facility], [facility]. Comment on above: Method: Tympanic 07-20-2022 15:00-0500 Body weight 97.98 kg Yasmine Etienne MA [facility], [facility].; [facility] 07-20-2022 15:00-0500 Diastolic blood pressure 79 mm[Hg] Yasmine Etienne MA [facility].; [facility], [facility]. Comment on above: Patient Position: Sitting; Cuff Location : Left Arm; Cuff Size: Standard 07-20-2022 15:00-0500 Heart rate 101 /min Yasmine Etienne MA [facility].; [facility], [facility]. Comment on above: Pattern: Regular 07-20-2022 15:00-0500 Systolic blood pressure 115 mm[Hg] Yasmine Etienne MA [facility], [facility].; [facility], [facility]. Comment on above: Patient Position: Sitting; Cuff Location : Left Arm; Cuff Size: Standard 02-16-2022 13:45-0400 Body height 165.1 cm Yasmine Etienne MA [facility], [facility].; [facility], [facility]. 02-16-2022 13:45-0400 Body mass index (BMI) [Ratio] 35.44 kg/m2 Yasmine Etienne MA [facility], [facility].; [facility] 02-16-2022 13:45-0400 Body surface area Derived from formula 2.03 m2 Yasmine Etienne MA [facility], [facility].; [facility], [facility]. 02-16-2022 13:45-0400 Body temperature 98.5 [degF] Yasmine Etienne MA [facility].; [facility], [facility]. Comment on above: Method: Tympanic 02-16-2022 13:45-0400 Body weight 96.62 kg Yasmine Etienne MA [facility], [facility].; [facility] 02-16-2022 13:45-0400 Diastolic blood pressure 72 mm[Hg] Yasmine Etienne MA [facility], [facility].; [facility], [facility]. Comment on above: Patient Position: Sitting; Cuff Location : Left Arm; Cuff Size: Large 02-16-2022 13:45-0400 Heart rate 79 /min Yasmine Etienne MA [facility] [facility].; [employer]. Comment on above: Pattern: Regular 02-16-2022 13:45-0400 Systolic blood pressure 102 mm[Hg] Yasmine Etienne MA [facility], [facility].; [employer]. Comment on above: Patient Position: Sitting; Cuff Location : Left Arm; Cuff Size: Large 09-06-2021 08:52-0500 Body height 165.1 cm Zahida Ortega [facility], [facility].; [employer]. 09-06-2021 08:52-0500 Body mass index (BMI) [Ratio] 40.94 kg/m2 Zahida Ortega [facility] [place] [facility] Inc.; [employer]. 09-06-2021 08:52-0500 Body surface area Derived from formula 2.16 m2 Zahida Ortega [facility] [place] [facility].; [employer]. 09-06-2021 08:52-0500 Body weight 111.59 kg Zahida [facility]tega [facility].; [employer]. 09-06-2021 08:52-0500 Diastolic blood pressure 81 mm[Hg] Zahida Ortega [facility] [place] [facility].; [employer]. Comment on above: Patient Position: Sitting; Cuff Location : Left Arm; Cuff Size: Standard 09-06-2021 08:52-0500 Heart rate 77 /min Zahida Ortega [facility] [place] [facility].; [employer]. Comment on above: Pattern: Regular 09-06-2021 08:52-0500 Systolic blood pressure 118 mm[Hg] Zahida [facility]tega [facility].; [employer]. Comment on above: Patient Position: Sitting; Cuff Location : Left Arm; Cuff Size: Standard 10-31-2018 09:58-0400 Body height 165.1 cm Teena Martinez [facility] [place] [facility].; [employer]. 10-31-2018 09:58-0400 Body mass index (BMI) [Ratio] 34.29 kg/m2 [facility]ena [facility], Inc.; [employer] 10-31-2018 09:58-0400 Body surface area Derived from formula 2 m2 Teena Martinez [employer] [facility], Inc.; [employer] 10-31-2018 09:58-0400 Body temperature 99 [degF] Teena Martinez [facility] [employer] Comment on above: Method: Tympanic 10-31-2018 09:58-0400 Body weight 93.47 kg Teena Martinez [facility], Inc.; [employer] 10-31-2018 09:58-0400 Diastolic blood pressure 78 mm[Hg] Teena Martinez [facility], Inc.; [employer] Comment on above: Patient Position: Sitting; Cuff Location : Left Arm; Cuff Size: Standard 10-31-2018 09:58-0400 Heart rate 82 /min Teena Martinez [facility], Inc.; [employer] Comment on above: Pattern: Regular 10-31-2018 09:58-0400 Systolic blood pressure 114 mm[Hg] Teena Martienz LPN [employer] Comment on above: Patient Position: Sitting; Cuff Location : Left Arm; Cuff Size: Standard 07-10-2018 11:46-0500 Body height 165.1 cm [facility] Work Phone: [employer].; [employer]. 07-10-2018 11:46-0500 Body mass index (BMI) [Ratio] 35.78 kg/m2 [facility] Work Phone: [employer] 07-10-2018 11:46-0500 Body surface area Derived from formula 2.04 m2 [facility] Work Phone: [employer].; [employer]. 07-10-2018 11:46-0500 Body temperature 100.2 [degF] Noemi Curran LPN Work Phone: [employer].; [employer]. Comment on above: Method: Tympanic 07-10-2018 11:46-0500 Body weight 97.52 kg Noemi Curran LPN Work Phone: [employer].; [employer]. 07-10-2018 11:46-0500 Diastolic blood pressure 82 mm[Hg] Noemi Curran [employer] Work Phone: [employer].; [employer]. Comment on above: Patient Position: Sitting; Cuff Location : Left Arm; Cuff Size: Standard 07-10-2018 11:46-0500 Heart rate 99 /min Noemi Curran LPN Work Phone: [employer]; [employer]. Comment on above: Pattern: Regular 07-10-2018 11:46-0500 Systolic blood pressure 118 mm[Hg] Noemi Curran LPN Work Phone: [employer].; [employer]. Comment on above: Patient Position: Sitting; Cuff Location : Left Arm; Cuff Size: Standard 04-13-2018 10:42-0400 Body height 165.1 cm Zahida Ortega [employer]. 04-13-2018 10:42-0400 Body mass index (BMI) [Ratio] 34.61 kg/m2 Zahida [facility]ga [facility].; [employer]. 04-13-2018 10:42-0400 Body surface area Derived from formula 2.01 m2 Zahida Ortega [facility].; [employer]. 04-13-2018 10:42-0400 Body weight 94.35 kg Zahida Ortega [facility].; [employer]. 04-13-2018 10:42-0400 Diastolic blood pressure 75 mm[Hg] Zahida Rashidlabach [facility] [employer]. Comment on above: Patient Position: Sitting; Cuff Location : Left Arm; Cuff Size: Standard 04-13-2018 10:42-0400 Heart rate 86 /min [facility] [employer] Comment on above: Pattern: Regular 04-13-2018 10:42-0400 Systolic blood pressure 121 mm[Hg] Zahida Cheney Shannon [facility] Hospital[facility] Inc.; [employer]. Comment on above: Patient Position: Sitting; Cuff Location : Left Arm; Cuff Size: Standard 04-07-2018 08:34-0400 Body height 165.1 cm Adolfo Mcdermott MD Work Phone: [employer].; [employer]. 04-07-2018 08:34-0400 Body mass index (BMI) [Ratio] 34.61 kg/m2 Adolfo Mcdermott MD Work Phone: [employer].; [employer]. 04-07-2018 08:34-0400 Body surface area Derived from formula 2.01 m2 Adolfo Mcdermott MD Work Phone: [employer].; [employer]. 04-07-2018 08:34-0400 Body temperature 98.6 [degF] Adolfo Mcdermott MD Work Phone: [employer].; [employer]. Comment on above: Method: Tympanic 04-07-2018 08:34-0400 Body weight 94.35 kg Adolfo Mcdermott MD Work Phone: [employer].; [employer]. 04-07-2018 08:34-0400 Diastolic blood pressure 83 mm[Hg] Adolfo Mcdermott MD Work Phone: [employer].; [employer]. Comment on above: Patient Position: Sitting; Cuff Location : Left Arm; Cuff Size: Large 04-07-2018 08:34-0400 Heart rate 97 /min Adolfo Mcdermott MD Work Phone: [employer]. Comment on above: Pattern: Regular 04-07-2018 08:34-0400 Inhaled oxygen concentration 20 % Adolfo Mcdermott MD Work Phone: [employer]. Comment on above: Room air 04-07-2018 08:34-0400 Inhaled oxygen concentration 21 % Adolfo Mcdermott MD Work Phone: [employer].; [employer]. Comment on above: Room air 04-07-2018 08:34-0400 SaO2% (BldA) [Mass fraction] 98 % Adolfo Mcdermott MD Work Phone: [employer].; [employer]. 04-07-2018 08:34-0400 Systolic blood pressure 123 mm[Hg] Adolfo Mcdermott MD Work Phone: [employer].; [employer]. Comment on above: Patient Position: Sitting; Cuff Location : Left Arm; Cuff Size: Large 09-04-2017 10:37-0500 Body height 165.1 cm Teena Martinez LPN [facility], [facility].; [employer]. 09-04-2017 10:37-0500 Body mass index (BMI) [Ratio] 31.95 kg/m2 Teena Martinez LPN [facility], [facility].; [employer]. 09-04-2017 10:37-0500 Body surface area Derived from formula 1.94 m2 Teena Martinez LPN [facility] [employer]. 09-04-2017 10:37-0500 Body weight 87.09 kg Teena Martinez [facility] [employer]. 09-04-2017 10:37-0500 Diastolic blood pressure 73 mm[Hg] Teena Martinez LPN [facility] [employer]. Comment on above: Patient Position: Sitting; Cuff Location : Left Arm; Cuff Size: Standard 09-04-2017 10:37-0500 Heart rate 78 /min Teena Mariscalfatimah VELÁSQUEZ [employer]. Comment on above: Pattern: Regular 09-04-2017 10:37-0500 Systolic blood pressure 115 mm[Hg] Teena Mariscalfatimah [employer] Comment on above: Patient Position: Sitting; Cuff Location : Left Arm; Cuff Size: Standard 08-17-2017 11:52-0500 Body height 165.1 cm Teena Mariscalfatimah VELÁSQUEZ [employer]. 08-17-2017 11:52-0500 Body mass index (BMI) [Ratio] 31.45 kg/m2 Teena Mariscalfatimah [facility], Inc.; [employer] 08-17-2017 11:52-0500 Body surface area Derived from formula 1.93 m2 Teena Mariscalfatimah VELÁSQUEZ [employer] 08-17-2017 11:52-0500 Body temperature 98.7 [degF] Teena Mariscalfatimah [facility], Inc.; [employer] Comment on above: Method: Tympanic 08-17-2017 11:52-0500 Body weight 85.73 kg Teena Mariscalfatimah VELÁSQUEZ [employer] 08-17-2017 11:52-0500 Diastolic blood pressure 70 mm[Hg] Teena Mariscalfatimah ALCANTARN [employer] Comment on above: Patient Position: Sitting; Cuff Location : Left Arm; Cuff Size: Standard 08-17-2017 11:52-0500 Heart rate 79 /min Teena Mariscalfatimah VELÁSQUEZ [employer]. Comment on above: Pattern: Regular 08-17-2017 11:52-0500 Systolic blood pressure 102 mm[Hg] Teena Mariscalfatimah ALCANTARN [employer] Comment on above: Patient Position: Sitting; Cuff Location : Left Arm; Cuff Size: Standard 07-13-2017 14:39-0500 Body height 165.1 cm Teena Virgenisreal VELÁSQUEZ [employer]. 07-13-2017 14:39-0500 Body mass index (BMI) [Ratio] 31.12 kg/m2 Teena Andrewsantonette [facility] Hospitale-[facility], Inc.; [employer]. 07-13-2017 14:39-0500 Body surface area Derived from formula 1.92 m2 Teena Mariscalfatimah VELÁSQUEZ [employer], [employer]. 07-13-2017 14:39-0500 Body temperature 99.9 [degF] Teena [facility]calfatimah [facility].; [employer]. Comment on above: Method: Tympanic 07-13-2017 14:39-0500 Body weight 84.82 kg Teena Mariscalfatimah VELÁSQUEZ [employer], [employer]. 07-13-2017 14:39-0500 Diastolic blood pressure 71 mm[Hg] Teena Mariscalfatimah [facility] HospitalChatalog.; [employer]. Comment on above: Patient Position: Sitting; Cuff Location : Left Arm; Cuff Size: Standard 07-13-2017 14:39-0500 Heart rate 130 /min Teena Mariscalfatimah VELÁSQUEZ [employer]. Comment on above: Pattern: Regular 07-13-2017 14:39-0500 Inhaled oxygen concentration 20 % Teena Wefatimah VELÁSQUEZ [employer]. Comment on above: Room air 07-13-2017 14:39-0500 Inhaled oxygen concentration 21 % Teena Wefatimah VELÁSQUEZ [employer], [employer]. Comment on above: Room air 07-13-2017 14:39-0500 SaO2% (BldA) [Mass fraction] 98 % Teena Wefatimah [facility], Inc.; [employer]. 07-13-2017 14:39-0500 Systolic blood pressure 112 mm[Hg] Teena Martinez DIDIER [facility], Inc.; [employer], [employer] Comment on above: Patient Position: Sitting; Cuff Location : Left Arm; Cuff Size: Standard 06-26-2017 15:24-0500 Body height 165.1 cm Teena Martinez DIDIER [facility], Inc.; [employer] 06-26-2017 15:24-0500 Body mass index (BMI) [Ratio] 31.45 kg/m2 [facility]antonette [facility], Inc.; [employer], [employer] 06-26-2017 15:24-0500 Body surface area Derived from formula 1.93 m2 Teena Andrewsantonette VELÁSQUEZ [facility], Inc.; [employer], [employer] 06-26-2017 15:24-0500 Body temperature 97.8 [degF] Teena Virgenisreal [facility] [employer], [employer] Comment on above: Method: Tympanic 06-26-2017 15:24-0500 Body weight 85.73 kg Teena Martinez [employer] [facility] [employer], [employer], [employer] 06-26-2017 15:24-0500 Diastolic blood pressure 73 mm[Hg] [facility] [employer], [employer], [employer] Comment on above: Patient Position: Sitting; Cuff Location : Left Arm; Cuff Size: Standard 06-26-2017 15:24-0500 Heart rate 78 /min Teena Mariscalfatimah VELÁSQUEZ [facility], Inc.; [employer]. Comment on above: Pattern: Regular 06-26-2017 15:24-0500 Inhaled oxygen concentration 20 % [facility]fatimah [facility] [employer]. Comment on above: Room air 06-26-2017 15:24-0500 Inhaled oxygen concentration 21 % Teena Juan VELÁSQUEZ [employer]. Comment on above: Room air 06-26-2017 15:24-0500 SaO2% (BldA) [Mass fraction] 98 % Teena Juan VELÁSQUEZ [facility], Inc.; [employer], [employer] 06-26-2017 15:24-0500 Systolic blood pressure 105 mm[Hg] Teena Juan [facility], Inc.; [employer], [employer] Comment on above: Patient Position: Sitting; Cuff Location : Left Arm; Cuff Size: Standard 09-07-2016 12:57-0500 Body height 162.56 cm Heather Cronin [employer] [facility], Inc.; [employer] 09-07-2016 12:57-0500 Body mass index (BMI) [Ratio] 35.36 kg/m2 Heather Cronin [facility], Inc.; [employer] 09-07-2016 12:57-0500 Body surface area Derived from formula 1.98 m2 Tesha Mehrdad [facility], Inc.; [employer] 09-07-2016 12:57-0500 Body weight 93.44 kg Heather Cronin [facility], Inc.; [employer], [employer] 09-07-2016 12:57-0500 Diastolic blood pressure 83 mm[Hg] Heather Cronin [employer] [facility], Inc.; [employer], [employer] Comment on above: Patient Position: Sitting; Cuff Location : Left Arm; Cuff Size: Large 09-07-2016 12:57-0500 Heart rate 80 /min Heather Cronin [employer] [facility], Inc.; [employer], [employer] Comment on above: Pattern: Regular 09-07-2016 12:57-0500 Systolic blood pressure 133 mm[Hg] Heather Cronin [facility], Inc.; [employer], [employer] Comment on above: Patient Position: Sitting; Cuff Location : Left Arm; Cuff Size: Large 08-23-2016 09:53-0500 Body height 162.56 cm Heather Cronin [employer] [facility], Inc.; [employer], [employer] 08-23-2016 09:53-0500 Body mass index (BMI) [Ratio] 35.36 kg/m2 Heather Cronin LPN [facility], Inc.; [employer], [employer] 08-23-2016 09:53-0500 Body surface area Derived from formula 1.98 m2 Heather Cronin LPN [facility], Inc.; [employer], [employer] 08-23-2016 09:53-0500 Body temperature 97.8 [degF] Heather Cronin [employer] [facility], Inc.; [employer], [employer] Comment on above: Method: Tympanic 08-23-2016 09:53-0500 Body weight 93.44 kg Heahter Cronin LPN [facility], Inc.; [employer], [employer] 08-23-2016 09:53-0500 Diastolic blood pressure 85 mm[Hg] Heather Cronin LPN [facility], Inc.; [employer], [employer] Comment on above: Patient Position: Sitting; Cuff Location : Left Arm; Cuff Size: Large 08-23-2016 09:53-0500 Heart rate 120 /min Heather Cronin LPN [facility], [employer], [employer] Comment on above: Pattern: Regular 08-23-2016 09:53-0500 Systolic blood pressure 134 mm[Hg] Heather Cronin LPN [employer] [facility], [employer], [employer] Comment on above: Patient Position: Sitting; Cuff Location : Left Arm; Cuff Size: Large 08-09-2016 11:58-0500 Body height 162.56 cm Yenifer Rucker RN [facility], [employer]. 08-09-2016 11:58-0500 Body mass index (BMI) [Ratio] 35.36 kg/m2 Yenifer Rucker RN [facility], [employer], [employer] 08-09-2016 11:58-0500 Body surface area Derived from formula 1.98 m2 Yenifer Rucker RN [facility], [employer]. 08-09-2016 11:58-0500 Body temperature 99 [degF] Yenifer Rucker RN [facility] HospitalWear[facility].; [employer]. Comment on above: Method: Tympanic 08-09-2016 11:58-0500 Body weight 93.44 kg Yenifer Rucker RN [facility], Inc.; [employer] 08-09-2016 11:58-0500 Diastolic blood pressure 81 mm[Hg] Yenifer Rucker RN [facility], Inc.; [employer], [employer] Comment on above: Patient Position: Sitting; Cuff Location : Right Arm; Cuff Size: Standard 08-09-2016 11:58-0500 Heart rate 92 /min Yenifer Rucker RN [facility], Inc.; [employer], [employer] Comment on above: Pattern: Regular 08-09-2016 11:58-0500 Systolic blood pressure 128 mm[Hg] Yenifer Rucker RN [facility], Inc.; [employer], [employer] Comment on above: Patient Position: Sitting; Cuff Location : Right Arm; Cuff Size: Standard 06-04-2016 09:16-0500 Body height 162.56 cm Heather Cronin LPN [facility], Inc.; [employer], [employer] 06-04-2016 09:16-0500 Body mass index (BMI) [Ratio] 34.84 kg/m2 TeshaShelly Cronin [employer] [facility], Inc.; [employer] 06-04-2016 09:16-0500 Body surface area Derived from formula 1.97 m2 TeshaShelly Cronin [employer] [facility], Inc.; [employer] 06-04-2016 09:16-0500 Body temperature 97.9 [degF] TeshaShelly Cronin [employer] [facility], Inc.; [employer], [employer] Comment on above: Method: Tympanic 06-04-2016 09:16-0500 Body weight 92.08 kg Heather Cronin LPN [facility], Inc.; [employer] 06-04-2016 09:16-0500 Diastolic blood pressure 77 mm[Hg] Heather Cronin LPN [facility], Inc.; [employer], [employer] Comment on above: Patient Position: Sitting; Cuff Location : Left Arm; Cuff Size: Large 06-04-2016 09:16-0500 Heart rate 96 /min Heather Cronin DIDIER [employer] [facility], Inc.; [employer] Comment on above: Pattern: Regular 06-04-2016 09:16-0500 Systolic blood pressure 121 mm[Hg] Heather Cronin [employer] [facility], Inc.; [employer] Comment on above: Patient Position: Sitting; Cuff Location : Left Arm; Cuff Size: Large 10-29-2015 11:09-0400 Body height 162.56 cm Teena Wefatimah VELÁSQUEZ [facility], Inc.; [employer] 10-29-2015 11:09-0400 Body mass index (BMI) [Ratio] 34.16 kg/m2 Teena Daveyfatimah [facility] [employer] 10-29-2015 11:09-0400 Body surface area Derived from formula 1.95 m2 Teenaashanti Martinez LPN [facility] [employer], [employer] 10-29-2015 11:09-0400 Body temperature 98.7 [degF] Teena Wefatimah [facility], Inc.; [employer] Comment on above: Method: Tympanic 10-29-2015 11:09-0400 Body weight 90.27 kg Teena Wefatimah VELÁSQUEZ [employer] 10-29-2015 11:09-0400 Diastolic blood pressure 73 mm[Hg] Teenaashanti Martinez LPRoosevelt General Hospitale-[employer] Technologies, Inc.; [employer], [employer] Comment on above: Patient Position: Sitting; Cuff Location : Left Arm; Cuff Size: Standard 10-29-2015 11:09-0400 Heart rate 92 /min Teenaashanti Martinez LPN [employer]. Comment on above: Pattern: Regular 10-29-2015 11:09-0400 Inhaled oxygen concentration 20 % Teena Martinez LPN [employer], [employer].; [employer] Comment on above: Room air 10-29-2015 11:09-0400 Inhaled oxygen concentration 21 % Teena Juan VELÁSQUEZ [facility], Inc.; [employer] [facility], [employer] Comment on above: Room air 10-29-2015 11:09-0400 SaO2% (BldA) [Mass fraction] 99 % Teenaashanti Martinez LPN [facility], Inc.; [employer], [employer] 10-29-2015 11:09-0400 Systolic blood pressure 124 mm[Hg] Teena Martinez LPP[facility], Inc.; [employer], [employer] Comment on above: Patient Position: Sitting; Cuff Location : Left Arm; Cuff Size: Standard 04-17-2015 15:05-0400 Body height 162.56 cm Teenaashanti Martinez LPN [facility], Inc.; [facility], Inc. 04-17-2015 15:05-0400 Body mass index (BMI) [Ratio] 33.54 kg/m2 Teenaashanti Martinez [facility], Inc.; Edwards [employer] 04-17-2015 15:05-0400 Body surface area Derived from formula 1.94 m2 Teenaashanti Martinez LPN [facility], [facility].; [employer] [facility], [employer] 04-17-2015 15:05-0400 Body temperature 102.2 [degF] Teena Mariscalfatimah [facility], [facility].; [employer], [employer] Comment on above: Method: Tympanic 04-17-2015 15:050400 Body weight 88.62 kg Teena Martinez LPN [facility], Inc.; Edwards [employer] 04-17-2015 15:05-0400 Diastolic blood pressure 72 mm[Hg] Teena Juan VELÁSQUEZ [facility], [facility].; [employer], [employer] Comment on above: Patient Position: Sitting; Cuff Location : Left Arm; Cuff Size: Standard 04-17-2015 15:05-0400 Heart rate 137 /min Teena Martinez LPN [facility], Inc.; [employer]. Comment on above: Pattern: Regular 04-17-2015 15:05-0400 Inhaled oxygen concentration 20 % Teena Martinez LPN [facility], [facility].; [facility]. Comment on above: Room air 04-17-2015 15:05-0400 Inhaled oxygen concentration 21 % Teena Wefatimah [facility], [facility].; [facility], Inc. Comment on above: Room air 04-17-2015 15:05-0400 SaO2% (BldA) [Mass fraction] 97 % Teena Daveyfatimah [facility], [facility].; [facility], Inc. 04-17-2015 15:05-0400 Systolic blood pressure 115 mm[Hg] Teena Juan [facility], [facility].; Edwards [employer], [employer] Comment on above: Patient Position: Sitting; Cuff Location : Left Arm; Cuff Size: Standard 09-26-2014 16:39-0500 Body height 162.56 cm Teena Martinez LPN [facility], [facility].; [facility], Inc. 09-26-2014 16:39-0500 Body mass index (BMI) [Ratio] 36.56 kg/m2 Teena Daveyfatimah [facility], [facility].; [facility], [employer] 09-26-2014 16:39-0500 Body surface area Derived from formula 2.01 m2 Teena Daveyfatimah [facility], [facility].; [facility], [employer] 09-26-2014 16:39-0500 Body temperature 97.6 [degF] Teena Wefatimah [facility], [facility].; [employer], [employer] Comment on above: Method: Tympanic 09-26-2014 16:39-0500 Body weight 96.62 kg Teena Martinez LPN [facility], [facility].; [employer]. 09-26-2014 16:39-0500 Diastolic blood pressure 74 mm[Hg] Teena Juan [facility], [facility].; [employer]. Comment on above: Patient Position: Sitting; Cuff Location : Left Arm; Cuff Size: Standard 09-26-2014 16:39-0500 Heart rate 98 /min Teena Daveyfatimah VELÁSQUEZ [facility], [facility].; [employer]. Comment on above: Pattern: Regular 09-26-2014 16:39-0500 Inhaled oxygen concentration 20 % Teena Martinez LPN [facility], [facility].; [facility] [employer], [employer] Comment on above: Room air 09-26-2014 16:39-0500 Inhaled oxygen concentration 21 % Teena Martinez LPN [facility], Inc.; [employer]. Comment on above: Room air 09-26-2014 16:39-0500 SaO2% (BldA) [Mass fraction] 99 % Teena Martinez LPN [facility], Inc.; [employer], [employer] 09-26-2014 16:39-0500 Systolic blood pressure 121 mm[Hg] Teena Martinez LPN [facility], [facility].; [employer], [employer] Comment on above: Patient Position: Sitting; Cuff Location : Left Arm; Cuff Size: Standard 12-04-2013 09:42-0400 Body height 162.56 cm Zahida Ortega LPN [facility], [facility].; [employer]. 12-04-2013 09:42-0400 Body mass index (BMI) [Ratio] 31.07 kg/m2 Zahida Ortega [employer] [facility], [facility].; [employer], [employer] 12-04-2013 09:42-0400 Body surface area Derived from formula 1.87 m2 Zahida Ortega [employer] [facility], [facility].; [employer]. 12-04-2013 09:42-0400 Body temperature 101.5 [degF] Zahida Ortega [employer] [facility] HospitalXen[facility].; [employer]. Comment on above: Method: Tympanic 12-04-2013 09:42-0400 Body weight 82.1 kg Zahida Ortega LPN [facility], [facility].; [employer]. 12-04-2013 09:42-0400 Diastolic blood pressure 70 mm[Hg] Zahida Ortega LPN [facility].; [employer]. Comment on above: Patient Position: Sitting; Cuff Location : Left Arm; Cuff Size: Standard 12-04-2013 09:42-0400 Heart rate 132 /min Zahida Cheney Shannon VELÁSQUEZ [employer], [employer]. Comment on above: Pattern: Regular 12-04-2013 09:42-0400 Systolic blood pressure 115 mm[Hg] Zahida Garzajc VELÁSQUEZ [employer]. Comment on above: Patient Position: Sitting; Cuff Location : Left Arm; Cuff Size: Standard 11-13-2013 15:57-0400 Body height 162.56 cm Gayla Navarro PA-C Work Phone: [employer].; [employer] 11-13-2013 15:57-0400 Body mass index (BMI) [Ratio] 31.57 kg/m2 Gayla Navarro PA-C Work Phone: [employer].; [employer] 11-13-2013 15:57-0400 Body surface area Derived from formula 1.89 m2 Gayla Navarro PA-C Work Phone: [employer].; [employer] 11-13-2013 15:57-0400 Body temperature 98.9 [degF] Gayla Navarro PA-C Work Phone: [employer].; [employer]. Comment on above: Method: Tympanic 11-13-2013 15:57-0400 Body weight 83.42 kg Gayla Navarro PA-C Work Phone: [employer].; [employer] 11-13-2013 15:57-0400 Diastolic blood pressure 72 mm[Hg] Gayla Navarro PA-C Work Phone: [employer].; [employer]. Comment on above: Patient Position: Sitting; Cuff Location : Left Arm; Cuff Size: Standard 11-13-2013 15:57-0400 Heart rate 91 /min Gayla Navarro PA-C Work Phone: [employer].; [employer] [facility]. Comment on above: Pattern: Regular 11-13-2013 15:57-0400 Systolic blood pressure 126 mm[Hg] Gayla Navarro PA-C Work Phone: [facility].; [facility]. Comment on above: Patient Position: Sitting; Cuff Location : Left Arm; Cuff Size: Standard 05-08-2013 15:42-0400 Body temperature 102.3 [degF] Heather Cronin [facility], [facility].; [employer]. Comment on above: Method: Tympanic 05-08-2013 15:42-0400 Body weight 83.92 kg Heather Cronin [facility], [facility].; [facility], [employer] 05-08-2013 15:42-0400 Diastolic blood pressure 78 mm[Hg] Heather Cronin [facility], [facility].; [employer], [employer] Comment on above: Patient Position: Sitting; Cuff Location : Left Arm; Cuff Size: Large 05-08-2013 15:42-0400 Heart rate 132 /min Heather Cronin [facility], [facility].; [facility], [employer] Comment on above: Pattern: Regular 05-08-2013 15:42-0400 Systolic blood pressure 123 mm[Hg] Heather Cronin [facility], [facility].; [employer], [employer] Comment on above: Patient Position: Sitting; Cuff Location : Left Arm; Cuff Size: Large 10-26-2012 15:49-0400 Body height 162.56 cm Teena Martinez LPN [facility], [facility].; [facility], [employer] 10-26-2012 15:49-0400 Body mass index (BMI) [Ratio] 32.16 kg/m2 Teena Martinez [facility], [facility].; [facility], [employer] 10-26-2012 15:49-0400 Body surface area Derived from formula 1.9 m2 Teena Martinez LPN [facility], [facility].; [facility], [employer] 10-26-2012 15:49-0400 Body temperature 100.4 [degF] Teena Wefatimah VELÁSQUEZ [facility], Inc.; [employer] Comment on above: Method: Tympanic 10-26-2012 15:49-0400 Body weight 84.99 kg Teena Wefatimah VELÁSQUEZ [facility], Inc.; [employer] 10-26-2012 15:49-0400 Diastolic blood pressure 81 mm[Hg] Teenaashanti Martinez LPN [facility], Inc.; [employer] Comment on above: Patient Position: Sitting; Cuff Location : Left Arm; Cuff Size: Standard 10-26-2012 15:49-0400 Heart rate 110 /min Teenaashanti Martinez LPN [facility], Inc.; [employer] Comment on above: Pattern: Regular 10-26-2012 15:49-0400 Systolic blood pressure 133 mm[Hg] Teenaashanti Martinez LPN [facility], Inc.; [employer] Comment on above: Patient Position: Sitting; Cuff Location : Left Arm; Cuff Size: Standard 09-18-2012 11:29-0500 Body height 162.56 cm Teenaashanti Martinez LPN [facility], Inc.; [employer] 09-18-2012 11:29-0500 Body mass index (BMI) [Ratio] 31.84 kg/m2 Teenaashanti Martinez LPN [facility], Inc.; [employer] 09-18-2012 11:29-0500 Body surface area Derived from formula 1.89 m2 Teena Martinez LPN [facility], Inc.; [employer] 09-18-2012 11:29-0500 Body temperature 100.8 [degF] Teena Martinez LPN [facility], Inc.; [employer], [employer] Comment on above: Method: Tympanic 09-18-2012 11:29-0500 Body weight 84.14 kg Teenaashanti Martinez LPN [facility], Inc.; [employer] 09-18-2012 11:29-0500 Diastolic blood pressure 80 mm[Hg] Teena Martinez LPN [facility] HospitalXen[facility].; [employer] [facility] HospitalWear[facility]. Comment on above: Patient Position: Sitting; Cuff Location : Left Arm; Cuff Size: Standard 09-18-2012 11:29-0500 Heart rate 105 /min Teena Martinez LPN [facility], [facility].; [employer]. Comment on above: Pattern: Regular 09-18-2012 11:29-0500 Systolic blood pressure 138 mm[Hg] Teena Juan VELÁSQUEZ [facility].; [employer]. Comment on above: Patient Position: Sitting; Cuff Location : Left Arm; Cuff Size: Standard 09-13-2011 09:16-0500 Body weight 75.75 kg Gayla Navarro PA-C Work Phone: [employer].; [employer]. 09-13-2011 09:16-0500 Diastolic blood pressure 79 mm[Hg] Gayla Navarro PA-C Work Phone: [employer].; [employer]. Comment on above: Patient Position: Sitting; Cuff Location : Right Arm; Cuff Size: Standard 09-13-2011 09:16-0500 Heart rate 86 /min Gayla Navarro PA-C Work Phone: [employer].; [employer]. Comment on above: Pattern: Regular 09-13-2011 09:16-0500 Systolic blood pressure 133 mm[Hg] Gayla Navarro PA-C Work Phone: [employer].; [employer]. Comment on above: Patient Position: Sitting; Cuff Location : Right Arm; Cuff Size: Standard 03-17-2011 11:56-0400 Body height 162.56 cm Gayla Navarro PA-C Work Phone: [employer].; [employer]. 03-17-2011 11:56-0400 Body mass index (BMI) [Ratio] 25.92 kg/m2 Gayla Navarro PA-C Work Phone: [employer]. 03-17-2011 11:56-0400 Body surface area Derived from formula 1.74 m2 Gayla Navarro PA-C Work Phone: [employer]. 03-17-2011 11:56-0400 Body weight 68.49 kg Gayla Navarro PA-C Work Phone: [employer]. 03-17-2011 11:56-0400 Diastolic blood pressure 73 mm[Hg] Gayla Navarro PA-C Work Phone: [employer]. Comment on above: Patient Position: Sitting; Cuff Location : Left Arm; Cuff Size: Standard 03-17-2011 11:56-0400 Heart rate 79 /min Gayla Joeer PA-C Work Phone: [employer]; [employer]. Comment on above: Pattern: Regular 03-17-2011 11:56-0400 Systolic blood pressure 121 mm[Hg] Gayla Navarro PA-C Work Phone: [employer]. Comment on above: Patient Position: Sitting; Cuff Location : Left Arm; Cuff Size: Standard 11-17-2010 11:05-0400 Body height 162.56 cm Heather Cronin [employer]. 11-17-2010 11:05-0400 Body mass index (BMI) [Ratio] 25.58 kg/m2 Heather Bravo [facility]. 11-17-2010 11:05-0400 Body surface area Derived from formula 1.73 m2 Tesha Mehrdad [employer]. 11-17-2010 11:05-0400 Body temperature 97.5 [degF] Heather Bravo [facility]. Comment on above: Method: Tympanic 11-17-2010 11:05-0400 Body weight 67.59 kg Heather Cronin LPN [facility], [employer] 11-17-2010 11:050400 Diastolic blood pressure 80 mm[Hg] Heather Cronin LPN [facility], [employer] Comment on above: Patient Position: Sitting; Cuff Location : Left Arm; Cuff Size: Large 11-17-2010 11:05040 Heart rate 78 /min Heather Cronin LPN [facility] [employer] [facility], [employer] Comment on above: Pattern: Regular 11-17-2010 11:050400 Systolic blood pressure 127 mm[Hg] Heather Cronin LPN [facility], [employer] Comment on above: Patient Position: Sitting; Cuff Location : Left Arm; Cuff Size: Large Encounters Encounter Date Encounter Type Care Provider Facility Start: 02-18-2025 Non-patient / Non-visit Denver Cummins nd, DO -[facility] Start: 02-18-2025 ambulatory Denver Flores Facility :[facility] Start: 02-18-2025 End: 02-18-2025 Admission to same day surgery center Denver Flores DO -Endoscopy Work Phone: Start: 02-18-2025 End: 02-18-2025 ambulatory Gayla PEREZ Work Phone: -Endoscopy Start: 02-17-2025 Encounter for other preprocedural examination Denver Flores [facility] Start: 12-13-2024 End: 12-13-2024 ambulatory Gayla PEREZ Work Phone: [facility] Work Phone: Start: 12-13-2024 End: 12-13-2024 Patient encounter procedure Jannette PEREZ -Laboratory Specimen Work Phone: Start: 12-13-2024 End: 12-13-2024 ambulatory Jannette Saba Facility:[facility] Start: 11-21-2024 End: 11-21-2024 Office outpatient visit 25 minutes Gayla PERESC Work Phone: [employer] Start: 11-14-2024 End: 01-14-2025 Follow-up encounter Arcelia Wilks BEATRIS Work Phone: OB/Gynecology Start: 11-08-2024 End: 11-08-2024 Patient encounter procedure Arcelia Wilks [employer] Work Phone: OB/Gynecology Comment on above: Encounter for gyneco logical examination (general) (routine) without abnormal findings (Primary Dx); Screening for cervical cancer; Encounter for screening for human papillomavirus (HPV) Start: 11-08-2024 End: 11-08-2024 Patient encounter status Arcelia Wilks BEATRIS Work Phone: [facility] Start: 11-08-2024 End: 11-08-2024 ambulatory ARCELIA WILKS Facility:[facility] Start: 11-08-2024 Encounter for gynecological examination (general) (routine) without abnormal findings ARCELIA SOUZAANUM [facility] Start: 10-30-2024 End: 10-30-2024 ambulatory [facility] Start: 10-14-2024 End: 10-14-2024 Subsequent hospital visit by physician Isabella Harrell MD Work Phone: [facility] Comment on above: At risk for genetic disorder; Family history of pancreatic cancer Start: 10-14-2024 End: 10-14-2024 ambulatory [facility] Start: 10-09-2024 End: 10-09-2024 ambulatory [facility] Start: 10-02-2024 End: 10-02-2024 Medication Gayla Joeer PA-C Work Phone: [employer] Start: 10-01-2024 End: 10-01-2024 ambulatory GAYLA Bai NAVARRO [facility] Start: 09-30-2024 Review Gayla Navarro PA-C Work Phone: [employer] Start: 09-30-2024 End: 09-30-2024 Office outpatient visit 15 minutes Gayla Navarro PA-C Work Phone: [employer]. Start: 09-06-2024 End: 09-06-2024 Medication Gayla Navarro PA-C Work Phone: [employer]. Start: 09-05-2024 End: 09-05-2024 ambulatory GAYLA NAVARRO [facility] Start: 09-05-2024 End: 09-05-2024 Orders Gayla Navarro PA-C Work Phone: [employer] [facility] [employer] Start: 08-21-2024 ambulatory [facility] Start: 08-21-2024 End: 08-21-2024 Office outpatient visit 15 minutes Gayla Navarro PA-C Work Phone: [employer] [facility] [employer]. Start: 08-21-2024 Review Gayla Anvarro PA-C Work Phone: [employer]. Start: 07-16-2024 ambulatory Denver Flores Facility :[facility] Start: 07-16-2024 End: 07-16-2024 ambulatory Tr Salazar Facility:[facility] Start: 07-10-2024 End: 07-11-2024 Refill Sheyla Newsome MD Work Phone: OB/Gynecology Comment on above: Refill Request Start: 05-29-2024 End: 05-29-2024 ambulatory Jannette Atacristina Facility:[facility] Start: 04-25-2024 End: 04-25-2024 Office outpatient visit 15 minutes Gayla Navarro PA-C Work Phone: [employer]. Start: 03-14-2024 End: 03-14-2024 Office outpatient visit 15 minutes Gayla Navarro PA-C Work Phone: [employer]. Start: 12-28-2023 End: 12-28-2023 Medication Gayla Navarro PA-C Work Phone: [employer]. Start: 12-27-2023 End: 12-27-2023 Office outpatient visit 15 minutes [employer] PA-C Work Phone: [employer] Start: 12-27-2023 Review [employer] Work Phone: [employer] Start: 10-11-2023 End: 10-11-2023 Patient encounter procedure Sheyla Newsome MD Work Phone: OB/Gynecology Comment on above: Encounter for gyneco logical examination (general) (routine) without abnormal findings (Primary Dx) Start: 10-11-2023 End: 10-11-2023 Patient encounter status Sheyla Newsome MD Work Phone: [facility] Start: 07-21-2023 End: 07-21-2023 Office outpatient visit 15 minutes [employer] Work Phone: [employer] Start: 05-10-2023 End: 05-10-2023 Patient encounter procedure [facility] [place] Comment on above: Encounter for immuni zation (Primary Dx) Start: 07-20-2022 End: 07-20-2022 Office outpatient visit 15 minutes [employer] Work Phone: [employer] Start: 06-22-2022 End: 06-22-2022 ambulatory [facility] Work Phone: Start: 06-22-2022 End: 06-22-2022 Patient encounter procedure [facility] [place] enrollment management director Off Start: 04-21-2022 End: 04-21-2022 Patient encounter procedure Nurse Peds [facility] [place] Comment on above: Encounter for immuni zation (Primary Dx) Start: 02-16-2022 End: 02-16-2022 Office outpatient visit 15 minutes [employer] Work Phone: [employer] Start: 10-27-2021 End: 10-27-2021 Patient encounter procedure [facility]-Laboratory , Specimen Start: 10-05-2021 End: 10-05-2021 Patient encounter procedure [facility]-Laboratory , El[place] enrollment management director Off Start: 09-07-2021 End: 09-07-2021 Patient encounter procedure [facility]-Laboratory , Specimen Start: 09-06-2021 End: 09-06-2021 Office outpatient visit 15 minutes Gayla Navarro PA-C Work Phone: [employer]. Start: 08-13-2021 End: 08-13-2021 Patient encounter procedure Gayla Navarro PA-C Work Phone: [employer]. Start: 08-06-2021 End: 08-06-2021 Patient encounter procedure [facility]-Laboratory , Elvia enrollment management director Off Start: 03-20-2020 End: 03-20-2020 Orders Gayla Navarro PA-C Work Phone: [employer]. Start: 11-25-2019 End: 11-25-2019 Telephone follow-up Gayla Navarro PA-C Work Phone: [employer]. Start: 11-16-2018 End: 11-16-2018 Orders Gayla Joeer PA-C Work Phone: [employer]. Start: 11-07-2018 End: 11-07-2018 Medication Gayla Joeer PA-C Work Phone: [employer]. Start: 11-05-2018 End: 11-05-2018 Medication Gayla Joeer PA-C Work Phone: [employer]. Start: 10-31-2018 End: 10-31-2018 Office outpatient visit 15 minutes Gayla Joeer PA-C Work Phone: [employer]. Start: 07-10-2018 End: 07-10-2018 Patient encounter procedure Gayla Joeer PA-C Work Phone: [employer]. Start: 04-14-2018 End: 04-14-2018 Medication Gayla Joeer PA-C Work Phone: [employer]. Start: 04-14-2018 End: 04-14-2018 Historical Summary Gayla Navarro PA-C Work Phone: [employer]. Start: 04-13-2018 End: 04-13-2018 Office outpatient visit 15 minutes Gayla Navarro PA-C Work Phone: [employer]. Start: 04-07-2018 End: 04-07-2018 Office outpatient visit 15 minutes Gayla Navarro PA-C Work Phone: [employer]. Start: 09-04-2017 End: 09-04-2017 Office outpatient visit 10 minutes Gayla Navarro PA-C Work Phone: [employer]. Start: 08-17-2017 End: 08-23-2017 Office outpatient visit 15 minutes Gayla Navarro PA-C Work Phone: [employer]. Start: 07-13-2017 End: 07-13-2017 Office outpatient visit 15 minutes Gayla Navarro PA-C Work Phone: [employer]. Start: 06-26-2017 End: 06-26-2017 Office outpatient visit 15 minutes Gayla Navarro PA-C Work Phone: [employer]. Start: 09-07-2016 End: 09-07-2016 Office outpatient visit 15 minutes Gayla Navarro PA-C Work Phone: [employer]. Start: 08-23-2016 End: 08-23-2016 Office outpatient visit 15 minutes Gayla Navarro PA-C Work Phone: [employer]. Start: 08-09-2016 End: 08-09-2016 Office outpatient visit 15 minutes Gayla Navarro PA-C Work Phone: [employer]. Start: 06-04-2016 End: 06-04-2016 Office outpatient visit 15 minutes Gayla Navarro PA-C Work Phone: [employer]. Start: 11-04-2015 End: 11-04-2015 Medication Gayla Navarro PA-C Work Phone: [employer]. Start: 11-04-2015 End: 11-04-2015 Medication Gayla Navarro PA-C Work Phone: [employer]. Start: 10-29-2015 End: 10-29-2015 Patient encounter procedure Gayla Navarro PA-C Work Phone: [employer]. Start: 04-17-2015 End: 04-17-2015 Patient encounter procedure Gayla Navarro PA-C Work Phone: [employer]. Start: 09-26-2014 End: 09-26-2014 Patient encounter procedure Gayla Navarro PA-C Work Phone: [employer]. Start: 12-04-2013 End: 12-04-2013 Patient encounter procedure Gayla Navarro PA-C Work Phone: [employer]. Start: 11-13-2013 End: 11-13-2013 Patient encounter procedure Gayla Navarro PA-C Work Phone: [employer] Start: 05-08-2013 End: 05-08-2013 Patient encounter procedure Gayla Navarro PA-C Work Phone: [employer]. Start: 10-26-2012 End: 10-26-2012 Patient encounter procedure Gayla Navarro PA-C Work Phone: [employer]. Start: 09-18-2012 End: 09-18-2012 Patient encounter procedure Gayla Navarro PA-C Work Phone: [employer] Start: 09-13-2011 End: 09-13-2011 Patient encounter procedure Gayla Joeer PA-C Work Phone: [employer]. Start: 03-17-2011 End: 03-17-2011 Patient encounter procedure Gayla Joeer PA-C Work Phone: [employer] Start: 03-17-2011 End: 03-17-2011 Routine gynecological examination Gayla Navarro PA-C Work Phone: [facility] Start: 11-17-2010 End: 11-17-2010 Patient encounter procedure Gayla Joeer PA-C Work Phone: [facility] Procedures Date Procedure Procedure Detail Performing Clinician Start: 02-18-2025 Colonoscopy Gayla Ana bhatter PA Work Phone: Start: 05-10-2023 INFLUENZA VACCINE, A GE 6 MO - 64 YR, QUADRIVALENT (AFLURIA, FLULAVAL, FLUZONE) She Nino MD Work Phone: Start: 04-21-2022 INFLUENZA VACCINE QUADRIVALENT 6 MO - 64 YRS IM Justin Samuels MD Work Phone: Start: 03-20-2020 End: 04-06-2020 TTE w or wo fol wcon,Doppler Gayla J Navarro PA-C Work Phone: Start: 09-04-2017 End: 09-04-2017 Body mass index documented Gayla J Navarro PA-C Work Phone: Start: 09-04-2017 End: 09-04-2017 Most recent diastolic blood pressure < 80 mm hg Gayla J Navarro PA-C Work Phone: Start: 09-04-2017 End: 09-04-2017 Most recent systolic blood pressure <130 mm hg Gayla J Navarro PA-C Work Phone: Start: 08-23-2017 End: 08-23-2017 Body mass index documented Gayla J Navarro PA-C Work Phone: Start: 08-23-2017 End: 08-23-2017 Most recent diastolic blood pressure < 80 mm hg Gayla J Navarro PA-C Work Phone: Start: 08-23-2017 End: 08-23-2017 Most recent systolic blood pressure <130 mm hg Gayla J Navarro PA-C Work Phone: Start: 07-13-2017 End: 07-13-2017 Body mass index documented Gayla J Navarro PA-C Work Phone: Start: 07-13-2017 End: 07-13-2017 Most recent diastolic blood pressure < 80 mm hg Gayla Joeer PA-C Work Phone: Start: 07-13-2017 End: 07-13-2017 Most recent systolic blood pressure <130 mm hg Gayla Bai Navarro PA-C Work Phone: Start: 06-26-2017 End: 06-26-2017 Body mass index documented Gayla Bai Navarro PA-C Work Phone: Start: 06-26-2017 End: 06-26-2017 Most recent diastolic blood pressure < 80 mm hg Gayla Bai Navarro PA-C Work Phone: Start: 06-26-2017 End: 06-26-2017 Most recent systolic blood pressure <130 mm hg Gayla Bai Navarro PA-C Work Phone: Start: 11-13-2013 End: 02-19-2014 Xtrnl ecg & 48 hr record scan stor w/r&i Yenifer Conway PA-C Work Phone: Start: 03-17-2011 End: 03-17-2011 Microscopic examination of cervical Papanicolaou smear Teena Martinez LPN Comment on above: Normal. H/O: section Previous c esarean section H/O: section H/O: Roni Ayers [employer] Tonsillectomy Gayla Joe er PA-C Work Phone: Plan of Treatment Date Care Activity Detail Author Start: 12-11-2032 Urine microalbumin profile DTaP,Tdap,Td Vaccine (2 - Td or Tdap) [facility] Start: 11-08-2029 Screening for malign ant neoplasm of cervix Cervical Cancer Screening [facility] Start: 09-13-2026 Screening for malign ant neoplasm of cervix Pap Testing [facility] Start: 11-10-2025 End: 11-10-2025 Patient encounter procedure 11/10/2025 10:15 AM EDT Office Visit OB/Gynecology [address] [place] [address] Arcelia Wilks, KENNETH.[employer] [address] [place] [address] Annual OB/Gynecology Comment on above: Annual Start: 02-18-2025 Patient discharge [facility] Start: 12-27-2024 Patient encounter procedure Medical; PHYSICAL - AWV, TSH [employer]. Start: 27-Dec-2024 09:10-04:00 SUSHMA Navarro Appointment Request [employer]. Start: 11-21-2024 Culture bacterial quanttative colony count urine Urine Culture ([id number]) Start: 21-Nov-2024 10:00-04:00 Request [employer].; [employer]. Start: 11-21-2024 Lipid panel LIPID PANEL ([id number]) Start: 21-Nov-2024 09:59-04:00 Request [employer].; [employer] Start: 11-21-2024 Assay of thyroid stimulating hormone tsh TSH (THYROID STIMULATING HORMONE) ([id number]) Start: 21-Nov-2024 09:58-04:00 Request [employer].; [employer]. Start: 10-30-2024 End: 10-30-2024 Professional / ancillary services management 10/30/2024 3:00 PM EDT Telehealth Ancillary Tereso Haynes [facility][note 3] [place], [place] [id number] Arcelia Bishop, [place], [place] [id number] follow up Tereso Haynes Comment on above: follow up Start: 09-30-2024 Iaad ia mult step method nos each organism [employer] Start: 09-30-2024 Cul bact stool aerob ic addl pathogens&id ea [employer] Start: 09-30-2024 Cul bact stool aerob ic isol salmonella&shigell RENETTA CULTURE-STOOL Start: 30-Sep-2024 10:14-04:00 Request [employer].; [employer] Start: 03-10-2025 Iaad ia giardia Giardia Antige n Start: 30-Sep-2024 10:14-04:00 Request [employer]; [employer]. Start: 09-30-2024 Ova&parasites direct smears concentration & id OVA & PARASITES ([id number]) Start: 30-Sep-2024 10:14-04:00 Request [employer]; [employer]. Start: 09-30-2024 Lactoferrin fecal qualitative LACTOFERRIN, FECAL, QUALITATIVE ([id number]) Start: 30-Sep-2024 10:14-04:00 Request [employer]; [employer]. Start: 09-30-2024 Comprehensive metabo lic panel CMP w/ GFR* ([id number]) Start: 30-Sep-2024 10:14-04:00 Request [employer]; [employer]. Start: 09-30-2024 Blood count complete auto&auto difrntl wbc CBC, PLATELETS & AUT DIFF (F) ([id number]) Start: 30-Sep-2024 10:14-04:00 Request [employer]; [employer]. Start: 09-13-2024 Screening for malign ant neoplasm of cervix Cervical Cancer Screening [facility] Start: 09-05-2024 Iaad ia mult step method nos each organism Clostridium difficile Toxin/GDH with Reflex to PCR ([id number]) Start: 05-Sep-2024 Request [employer]; [employer]. Start: 03-24-2024 COVID-19 (2023-08 5 season) COVID-19 ( season) [facility] Start: 03-24-2024 Covid-19 Vaccine ( season) Covid-19 Vaccine () [facility] Start: 03-24-2024 Influenza vaccination Influenza Vacc ine (#1) [facility] Start: 12-27-2023 Assay of thyroid stimulating hormone tsh TSH (THYROID STIMULATING HORMONE) ([id number]) Start: 27-Dec-2023 11:17-04:00 Request [employer]; [employer]. Start: 12-27-2023 Patient encounter procedure Medical; EXTENDED RTN - thyroid meds, [facility] Start: 27-Dec-2023 10:50-04:00 SUSHMA Navarro [facility]ment [facility] Start: 07-24-2023 Depression Assessment Depression Ass [facility] Start: 07-21-2023 Culture bacterial quanttative colony count urine Urine Culture ([id number]) Start: 21-Jul-2023 11:15 [facility] Start: 03-24-2023 Covid-19 Vaccine () Covid-19 Vaccine () [facility] Start: 07-24-2022 Depression Assessment Depression Ass [facility] Start: 07-24-2021 DEPRESSION ASSESSMENT DEPRESSION ASS [facility] Start: 01-07-2021 COVID-19 VACCINE (3 - Booster for Pfizer series) COVID-19 VACCINE (3 - Booster for Pfizer series) [facility] Start: 2018 HPV TESTING HPV TESTING [facility] Start: 2018 Screening for malign ant neoplasm of cervix HPV Testing [facility] Start: 2009 Microscopic observat ion [Identifier] in Cervix by Cyto stain Pap Smear [facility] Start: 2009 PAP TESTING PAP TESTING [facility] Start: 2007 Hepatitis B (1 of 3 - 19+ 3-dose series) Hepatitis B (1 of 3 - 19+ 3-dose series) [facility] Start: 2007 Hepatitis B Vaccine (1 of 3 - 19+ 3-dose series) Hepatitis B Vaccine (1 of 3 - 19+ 3-dose series) [facility] Start: 2007 Urine microalbumin profile DTAP,TDAP,TD (1 - Tdap) [facility] Start: 2006 Anxiety Screening Anxiety Screening [facility] Start: 2006 Depression Screening Depression Scre [facility] Start: 2006 HEPATITIS C SCREENING HEPATITIS C [facility] Start: 2006 Hepatitis C screening Hepatitis C [facility] Start: 2006 HIV SCREENING HIV SCREENING [facility] Start: 2006 HIV screening HIV Screening [facility] Start: 2004 MenB (1 of 2 - MenB 2-Dose Series Bexsero) MenB (1 of 2 - MenB 2-Dose Series Bexsero) [facility] Start: 2001 Varicella (1 of 2 - 13+ 2-dose series) Varicella (1 of 2 - 13+ 2-dose series) [facility] Start: 1995 Tetanus Diphtheria a nd Pertussis Vaccines (1 - Tdap) Tetanus Diphtheria and Pertussis Vaccines (1 - Tdap) [facility] Start: 1989 MMR (1 of 1 - Standa rd series) MMR (1 of 1 - Standard series) [facility] Start: 1988 HEPATITIS B (1 of 3 - 3-dose series) HEPATITIS B (1 of 3 - 3-dose series) [facility] Start: 1988 Hepatitis B Vaccine (1 of 3 - 3-dose series) Hepatitis B Vaccine (1 of 3 - 3-dose series) [facility] End: 10-14-2024 Genetic Sendout: Custom Panel [facility] Work Phone: Comment on above: 1 Occurrences starti ng 10/14/2024 until 10/14/2024 PAP TEST PAP TEST Lab Laura mondragon Screening for cervical cancer Encounter for screening for human papillomavirus (HPV) 11/08/2024 9:57 AM EDT [facility] Work Phone: [facility] Immunizations Immunization Date Immunization Notes Care Provider Destiny irwin 05-15-2024 influenza virus vaccine, live, attenuated, for intranasal use Arcelia Wilks APRN.CNP Work Phone: [facility] 05-10-2023 influenza, injectabl e, quadrivalent, contains preservative Nurse Elvia [facility] 05-10-2023 influenza virus vaccine, unspecified formulation Sheyla Newsome MD Work Phone: [facility] 12-11-2022 tetanus toxoid, redu marilee diphtheria toxoid, and acellular pertussis vaccine, adsorbed Sheyla Newsome MD Work Phone: [facility] Work Phone: 04-21-2022 influenza, injectabl e, quadrivalent, contains preservative Nurse [facility] 04-23-2021 influenza, injectabl e, quadrivalent, contains preservative Nurse [facility] 04-14-2020 influenza, injectabl e, quadrivalent, contains preservative Nurse [facility] 05-30-2019 influenza, injectabl e, quadrivalent, preservative free Nurse [facility] 05-28-2019 Influenza virus vaccine [facility] 05-28-2019 influenza, seasonal, injectable Sheyla Newsome MD Work Phone: [facility] Work Phone: 05-09-2018 influenza, injectabl e, quadrivalent, preservative free Nurse [facility] 05-09-2017 influenza, injectabl e, quadrivalent, preservative free Nurse [facility] Work Phone: 04-21-2016 influenza, seasonal, injectable Nurse [facility] 06-15-2015 influenza, injectabl e, quadrivalent, preservative free Sheyla Newsome MD Work Phone: [facility] Work Phone: 05-07-2014 influenza, injectabl e, quadrivalent, preservative free Nurse [facility] 04-23-2014 Influenza virus vaccine [facility] 04-23-2014 influenza, seasonal, injectable Sheyla Newsome MD Work Phone: [facility] Work Phone: 05-30-2013 influenza virus vaccine, live, attenuated, for intranasal use [facility] 04-11-2012 influenza virus vaccine, whole virus Sheyla Newsome MD Work Phone: [facility] Work Phone: Payers Date Payer Category Payer Self-pay [id number] 2023 Unknown [facility] [id number] 2022 Unknown [id number] 2020 Medicaid [id number] 2014 Unknown [id number] [address] [facility] [id number] 1988 Unknown [id number] 1988 Unknown [id number] 1988 Unknown [id number] 1988 Unknown [id number] 1988 Unknown [id number] Unknown [id number] Unknown [id number] Unknown [id number] Unknown [id number] Unknown [id number] Unknown [id number] Social History Date Type Detail Facility Start: 11-19-2019 End: 11-19-2019 Tobacco smoking status NHIS Unknown if ever smoked [facility] Work Phone: Start: 11-19-2019 None [facility] Start: 1990 Sex Assigned At Female [facility] Start: 1990 Sex Assigned At Not on file [facility] Start: 04-11-2022 End: 04-21-2022 Exposure to SARS-CoV-2 (event) Not sure [facility] Start: 07-01-2020 End: 11-08-2024 [facility] Start: 07-01-2020 End: 11-08-2024 Area Deprivation Index [facility] National Score (1-10 0), lower number is lower risk Not on file [facility] Tobacco Use: Tobacco Use: ; N ever smoker. [facility] Start: 06-21-2023 End: 02-14-2025 Never smoked tobacco [facility] Start: 06-21-2023 Tobacco use and exposure Smoke less tobacco non-user [facility] Start: 10-11-2023 End: 11-08-2024 Alcohol intake Ex-drinker (finding) [facility] Goals Date Patient Goal Desired Activity /State Mental Status Date Assessment Result Facility 02-18-2025 Cognitive function Voice/Name;Touch/Annie underwood [facility] Work Phone: 02-18-2025 Cognitive function Patient Orien nuris Person;Place;Time [facility] Work Phone: Clinical Notes 09-07-2021 to 02-18-2025 Note Date & Type Note Facility 02-18-2025 Consult note Note Date/Time February 18, 2025 1:47pm [facility] Medical Records Department [address] [place] [address] Pre-Anesthesia Evaluation 02/18/25 1341 MR#: [id number] Acct: [id number] Name: USHA MATA Rep #:[id number] : 1990 34 From: Arnold Puente MD PCP: ANA Gonzalez Status:REG SDC Y Race: C Location: [place] [address] ASA Classification* ASA Classification ASA Classification: 2 Assessment & Plan Anesthesia* Anesthesia Assessment Anesthesia Assessment: Discussed sedation and/or anesthesia options, risks, benefits, and alternatives with patient/parents/legal guardian/POA. Questions invited. The patient/parents/legal guardian/POA seems to understand and agrees to proceedwith anesthesia plan. Reviewed the physical assessment, medical history, allergy history and patient home medications list prior to surgery/procedure/anesthetic and documented any changes. Performed airway and anesthesia risk assessments. Anesthesia Type Anesthesia Type: MAC History Source History Obtained from:: Patient and Chart Anesthesia Focused Assessment* Temperature: 97.5 F Pulse Rate: 63 Blood Pressure: 135/80 Respiratory Rate: 18 Pulse Ox: 100 Oxygen Delivery Method: Room Air Airway Assessment Mouth opens: >3 cm Mallampati Score: I Teeth Condition: Lower (Patient has a permanent retainer behind her bottom teeth.) Neck Range of motion (ROM): Full ROM Labs Anesthesia Preop lab: CBC WBC 11.6 K/mm3 (4.4-11.0) H 11/20/19 05:55 0 RBC 3.80 M/mm3 (4.2-5.4) L 11/20/19 05:55 11/20/19 Hgb 10.8 g/dL (12.0-15.0) L 11/20/19 05:55 0 Hct 32.9 % (37-47) L 11/20/19 05:55 11/20/19 Plt Count 238 K/mm3 (150-450) 11/20/19 05:55 11/20/19 CHEMISTRY Potassium 3.6 mmol/L (3.5-5.1) 10/04/19 11:46 10/04/19 Sodium 140 mmol/L (136-145) 10/04/19 11:46 10/04/19 BUN 8 mg/dL (7-18) 10/04/19 11:46 10/04/19 Creatinine 0.50 mg/dL (0.55-1.02) L 10/04/19 11:46 Glucose 95 mg/dL (74-106) 10/05/21 11:37 10/05/21 TSH 2.75 uIU/mL (0.358-3.74) 06/22/22 12:04 COAG Urine Test Negative Negative 02/18/25 12:50 02/18/25 Pre-Assessment Diagnosis/Proposed Procedure Planned Operative Procedure(s): COLONOSCOPY Anesthesia History 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 When Was Last Pacemaker Check QUESTION #4 FULL TEXT: You/Your Family Experience fever (hyperthermia) with Anesthesia Last Oral Intake Last Oral intake: Last Oral Intake NPO since 10:00 02/18/25 13:17 Meds taken in AM with sips of water? 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 Female Yes 02/14/25 08:38 HX of Motion Sickness No 02/14/25 08:38 HX of N/V After Surgery No 02/14/25 08:38 Non-Smoker Yes 02/14/25 08:38 Duration of Surgery greater No 02/14/25 08:38 than 60 minutes Number of Risk Factors 2 02/14/25 08:38 PONV Score Moderate Risk 02/14/25 08:38 Height & Weight Height & Weight: Anesthesia: Height & Weight Height 5 ft 5 in 02/18/25 13:17 Weight: 90 kg 02/18/25 13:17 Body Mass Index (BMI) 33.0 02/18/25 13:17 Respiratory Assessment Respiratory Assessment - winch truck operator: Respiratory Tract Infection Hx - winch truck operator Hx Respiratory Tract Infection No 02/14/25 08:38 STOP Sleep Apnea STOP Sleep Apnea - winch truck operator: STOP Sleep Apnea - winch truck operator Hx Hypertension No 02/14/25 08:38 Hx Sleep Apnea No 02/14/25 08:38 CPAP No 07/16/24 07:07 BIPAP No 12/16/14 13:22 Do you snore loudly (louder No 02/14/25 08:38 than talking or can be heard Do you often feel tired/ No 02/14/25 08:38 fatigued/ sleepy during daytime? Has anyone observed you stop No 02/14/25 08:38 breathing during sleep? STOP Results Negative 02/14/25 08:38 QUESTION #5 FULL TEXT : Do you snore loudly (louder than talking or can be heard through closed doors)? 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 Specify any problems Hx of Preganancy in last 3 No 02/14/25 08:38 Months Nurse Filling Out Transfusion [email or web address] 02/14/25 08:38 & Questions: Date: 02/14/25 02/14/25 08:38 Time: 08:39 02/14/25 08:38 Patient unable to answer at this time (ie. 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: /Reproductive Hx- winch truck operator Hx Now Gestational Age (in weeks): EDC: Hx Hx Para Hx Section SAB No 07/12/24 14:19 Active Medications Active Medications: Current Medications Generic Name Dose Route Start Last Admin Trade Name Vignesh PRN Reason Stop Dose Admin Lactated Ringer's 1,000 mls @ 15 mls/hr 02/18/25 13:30 02/18/25 13:26 IV 15 mls/hr .Q48H TAE Administration PFSH Medical History Wears glasses Anemia Gastric reflux Asthma Non-smoker History of Holter monitoring Tachycardia Hypothyroid Home Medications ?Medication ?Instructions ?Recorded ?Last Taken ?Type levothyroxine 50 mcg tablet 50 mcg PO DAILY Check with primary 11/19/19 02/17/25 History doctor cetirizine 10 mg tablet 10 mg PO DAILY 07/12/2401/22 History Saccharomyces boulardii 250 mg 250 mg PO BID #90 caps 10/22/24 02/17/25 Rx capsule (Florastor) omeprazole 20 mg capsule,delayed 20 mg PO DAILY 02/17/25 History release wheat dextrin 1 gram tablet 1 g PO BID 02/14/25 History (Benefiber (wheat dextrin)) Allergy/AdvReac Type Severity Reaction Status Date / Time Sulfa (Sulfonamide AdvReac Swelling Verified 02/18/25 13:14 Antibiotics) sulfamethoxazole (From AdvReac Nausea Verified 02/18/25 13:14 Bactrim) trimethoprim (From Bactrim) AdvReac Nausea Verified 02/18/25 13:14 Surgical History Hx of tonsillectomy Hx of abdominal surgery Previous section Social History Smoking Status: Never smoker Review of Systems (Anesthesia) ROS Narrative System reviewed and no additional complaints, except as documented. 02/18/25 5627 <Electronically signed by Arnold johnson MD> Date _ Arnold Puente MD Cosigner Signature: Date CC: ~ Signed [facility] Work Phone: 1(414) 559-957607-29-2025 Procedure note [facility] Medical Records Department [address] [place] [address] Colonoscopy Report MR#: [id number] Acct: [id number] Name: USHA MATA Rep #:[id number] : 1990 34 From: Denver Flores DO PCP: ANA Gonzalez Status:REG SDC Patient Name: Usha Mata Procedure Date: 02/18/2025 2:33 PM Date of : 1990 Age: 34 Procedure: Colonoscopy Indications: Generalized abdominal pain, Chronic diarrhea Providers: Denver Flores DO Referring MD: Gayla Navaror Medicines: Monitored Anesthesia Care Patient Profile: This is a 34 year old female. Refer to note in patient chart for documentation of history and physical. Last Colonoscopy: none. The patient's first colonoscopy is today. Complications: No immediate complications. Procedure: Pre-Anesthesia Assessment: - Prior to the procedure, a History and Physical was performed, and patient medications and allergies were reviewed. The patient is competent. The risks and benefits of the procedure and the sedation options and risks were discussed with the patient. All questions were answered and informed consent was obtained. Patient identification and proposed procedure were verified by the physician in the pre-procedure area. Mental Status Examination: alert and oriented. Airway Examination: normal oropharyngeal airway and neck mobility. Respiratory Examination: clear to auscultation. CV Examination: normal. Prophylactic Antibiotics: The patient does not require prophylactic antibiotics. Prior Anticoagulants: The patient has taken no anticoagulant or antiplatelet agents. ASA Grade Assessment: II - A patient with mild systemic disease. After reviewing the risks and benefits, the patient was deemed in satisfactory condition to undergo the procedure. The anesthesia plan was to use monitored anesthesia care (MAC). Immediately prior to administration of medications, the patient was re-assessed for adequacy to receive sedatives. The heart rate, respiratory rate, oxygen saturations, blood pressure, adequacy of pulmonary ventilation, and response to care were monitored throughout the procedure. The physical status of the patient was re-assessed after the procedure. After I obtained informed consent, the scope was passed under direct vision. Throughout the procedure, the patient's blood pressure, pulse, and oxygen saturations were monitored continuously. The colonoscope was introduced through the anus and advanced to the terminal ileum. The colonoscopy was performed without difficulty. The patient tolerated the procedure well. The quality of the bowel preparation was adequate. The terminal ileum, ileocecal valve, appendiceal orifice, and rectum were photographed. Scope In: 2:48:53 PM Scope Withdrawal Time 0 hours 8 minutes 18 seconds Scope Out: 2:59:58 PM Total Procedure Duration Time 0 hours 11 minutes 5 seconds Findings: The perianal and digital rectal examinations were normal. An area of mildly congested mucosa was found in the recto-sigmoid colon, in the transverse colon and in the cecum. Biopsies were taken with a cold forceps for histology. Verification of patient identification for the specimen was done. Estimated blood loss was minimal. A patchy area of the terminal ileum was congested. Biopsies were taken with a cold forceps for histology. Verification of patient identification for the specimen was done. Estimated blood loss was minimal. A few small-mouthed diverticula were found in the sigmoid colon. Impression: - Congested mucosa in the recto-sigmoid colon, in the transverse colon and in the cecum. Biopsied. - Congested mucosa in the terminal ileum. Biopsied. - Diverticulosis in the sigmoid colon. Recommendation: - Discharge patient to home. - Resume previous diet. - Repeat colonoscopy is recommended for surveillance. The colonoscopy date will be determined after pathology results from today's exam become available for review. - Continue present medications. Procedure Code(s): --- Professional --- 03591, Colonoscopy, flexible; with biopsy, single or multiple CPT copyright 2021 [employer]. All rights reserved. The codes documented in this report are preliminary and upon certified procedural coder review may be revised to meet current compliance requirements. Denver Flores DO 02/18/2025 3:13:54 PM This report has been signed electronically. Number of Addenda: 0 Note Initiated On: 02/18/2025 2:33 PM 02/18/25 1514 Date _ Denver Enriquez Signature: Date (if indicated) CC: ANA Gonzalez; Denver Flores DO ~ Date Dictated: 02/18/25 1433 Date Transcribed: Rate Inserter: RF Signed [facility]07-29-2025 Procedure note [facility] Medical Records Department [address] [place] [address] Provation Physician Letter MR#: [id number] Acct: [id number] Name: USHA MATA Rep #:[id number] : 1990 34 From: Denver Flores DO PCP: ANA Gonzalez Status:REG [facility] 02/18/2025 Gayla Navarro Re : Colonoscopy procedure for Usha Mata Deaalvaro Navarro This procedure was performed on Tuesday, February 18, 2025. My impressions and recommendations are as follows: Impressions : - Congested mucosa in the recto-sigmoid colon, in the transverse colon and in the cecum. Biopsied. - Congested mucosa in the terminal ileum. Biopsied. - Diverticulosis in the sigmoid colon. Recommendations : - Discharge patient to home. - Resume previous diet. - Repeat colonoscopy is recommended for surveillance. The colonoscopy date will be determined after pathology results from today's exam become available for review. - Continue present medications. My findings are described in the full procedure note, which is enclosed. If I can be of further assistance, please feel free to contact me at . Sincerely, Denver Flores DO 02/18/2025 3:13:54 PM This report has been signed electronically. 02/18/25 1514 Date _ Denver Enriquez Signature: Date (if indicated) CC: ANA Gonzalez; DO Kevin Schuster Date Dictated: 02/18/25 1433 Date Transcribed: Rate Inserter: RF Signed [facility]07-29-2025 Consult note [facility] Medical Records Department [address] [place] [address] Anesthesia Postop Eval I 02/18/25 1509 MR#: [id number] Acct: [id number] Name: USHA MATA Rep #:[id number] : 1990 34 From: Justin Baker CRNA PCP: ANA Gonzalez Status:REG [facility] Y Race: C Location: [place] [address] Anesthesia: Postop Eval I Current Vital Signs Temperature: 97.3 F Pulse Rate: 55 Blood Pressure: 116/74 Respiratory Rate: 14 Pulse Ox: 99 Oxygen Delivery Method: Room Air Assessment Airway patent: Yes Spontaneous unlabored respirations: Yes Mental status: Awake nausea: No Vomiting: No Anesthesia Complication: No Fluid Hydration Crystalloid volume administer (ml): 600 Total IV fluid infused: 600 Progress Note Anesthesia document: Postop Eval 1 completed: Yes 02/18/25 1510 n MAT TESTER> Date _ Justin Baker MAT TESTER Cosigner Signature: Date CC: ~ Signed [facility]07-29-2025 Evaluation note* Diagnosis Onset Date Resolution Status Admit Date Loose stools acute February 18, 025 12:43pm [facility] Work Phone: 1(198) 279-372907-29-2025 History and physical note [facility] Medical Records Department [address] [place] [address] History & Physical Exam 02/18/25 1432 MR#: [id number] Acct: [id number] Name: USHA MATA Rep #:[id number] : 1990 34 From: Denver Flores DO PCP: ANA Gonzalez Status:[facility] Location: [place] [address] HPI - General General Date of Admission: 02/18/25 Date of Service: 02/18/25 Chief Complaint: Diarrhea HPI Narrative USHA MATA, is a 34 F who presents today for the evaluation of recurring diarrhea. She has a pastmedical history of C. difficile infection from unknowncause. She completed treatment for C. difficile and is currently on a probioticon a daily basis. She comes in today for colonoscopy. [facility] Medical History Wears glasses Anemia Gastric reflux Asthma Non-smoker History of Holter monitoring Tachycardia Hypothyroid Home Medications ?Medication ?Instructions ?Recorded ?Last Taken ?Type levothyroxine 50 mcg tablet 50 mcg PO DAILY Check with primary 11/19/19 02/17/25 History doctor cetirizine 10 mg tablet 10 mg PO DAILY 07/12/2401/22 History Saccharomyces boulardii 250 mg 250 mg PO BID #90 caps 10/22/24 02/17/25 Rx capsule (Florastor) omeprazole 20 mg capsule,delayed 20 mg PO DAILY 02/17/25 History release wheat dextrin 1 gram tablet 1 g PO BID 02/14/25 History (Benefiber (wheat dextrin)) Allergy/AdvReac Type Severity Reaction Status Date / Time Sulfa (Sulfonamide AdvReac Swelling Verified 02/18/25 13:14 Antibiotics) sulfamethoxazole (From AdvReac Nausea Verified 02/18/25 13:14 Bactrim) trimethoprim (From Bactrim) AdvReac Nausea Verified 02/18/25 13:14 Surgical History Hx of tonsillectomy Hx of abdominal surgery Previous section Social History Smoking Status: Never smoker ROS Constitutional Constitutional: Denies fatigue, fever(s), poor appetite, weight gain or weight loss Gastrointestinal Gastrointestinal: Denies belching, bloating, change in bowel habits, change in stool character, chewing difficulty, coffee ground emesis, constipation, cramping, diarrhea, dyspepsia, dysphagia, earlysatiety, excessive flatus, fecalincontinence, heartburn, hematemesis, hematochezia, hemorrhoids, loose stools, melena, nausea, odynophagia, rectal bleeding, tenesmus, vomiting or weight changes Vital Signs Vital Signs Vital Signs: 02/18/25 13:17 02/18/25 13:17 02/18/25 13:47 Temperature 97.5 F L 97.5 F L Temperature Source Temporal Pulse Rate 63 63 Respiratory Rate 18 18 Respiratory Pattern Normal Blood Pressure 135/80 H 135/80 H Blood Pressure Mean 98 Blood Pressure Source Monitor Blood Pressure Position Semi-Fowlers Blood Pressure Location Left Arm Pulse Ox 100 100 Oxygen Delivery Method Room Air Room Air Weight Weight: 198 lb 6.656 oz Body Mass Index (BMI) 33.0 Physical Exam Const alert, oriented x3, no apparent distress and healthy appearing General Appearance: cooperative GI normal to inspection, nondistended, normoactive bowel sounds, soft to palpation,non-tender and non-distended Percussion: normal to percussion Rectal Exam: deferred Results Lab / Micro Data Labs: Laboratory Results - last 24 hr 02/18/25 12:50: Urine Test Negative Assessment & Plan Assessment/Plan (1) Loose stools: PLAN: She will undergo colonoscopy. She was explained alternatives, risk and benefits include not withstanding bleeding, infection, sepsis, perforation, needfor emergent surgery and . She will have an ASA of 3. 02/18/25 1434 Cosigner Signature (if applicable): CC: ANA Gonzalez; Denver Friend, DO~ Signed [facility]07-29-2025 Consult note [facility] Medical Records Department [address] [place] [address] Pre-Anesthesia Evaluation 02/18/25 1341 MR#: [id number] Acct: [id number] Name: USHA MATA Rep #:[id number] : 1990 34 From: Arnold Puente MD PCP: ANA Gonzalez Status:REG SDC Y Race: C Location: [facility] ASA Classification* ASA Classification ASA Classification: 2 Assessment & Plan Anesthesia* Anesthesia Assessment Anesthesia Assessment: Discussed sedation and/or anesthesia options, risks, benefits, and alternatives with patient/parents/legal guardian/POA. Questions invited. The patient/parents/legal guardian/POA seems to understand and agrees to proceedwith anesthesia plan. Reviewed the physical assessment, medical history, allergy history and patient home medications list prior to surgery/procedure/anesthetic and documented any changes. Performed airway and anesthesia risk assessments. Anesthesia Type Anesthesia Type: MAC History Source History Obtained from:: Patient and Chart Anesthesia Focused Assessment* Temperature: 97.5 F Pulse Rate: 63 Blood Pressure: 135/80 Respiratory Rate: 18 Pulse Ox: 100 Oxygen Delivery Method: Room Air Airway Assessment Mouth opens: >3 cm Mallampati Score: I Teeth Condition: Lower (Patient has a permanent retainer behind her bottom teeth.) Neck Range of motion (ROM): Full ROM Labs Anesthesia Preop lab: CBC WBC 11.6 K/mm3 (4.4-11.0) H 11/20/19 05:55 0 RBC 3.80 M/mm3 (4.2-5.4) L 11/20/19 05:55 11/20/19 Hgb 10.8 g/dL (12.0-15.0) L 11/20/19 05:55 0 Hct 32.9 % (37-47) L 11/20/19 05:55 11/20/19 Plt Count 238 K/mm3 (150-450) 11/20/19 05:55 11/20/19 CHEMISTRY Potassium 3.6 mmol/L (3.5-5.1) 10/04/19 11:46 10/04/19 Sodium 140 mmol/L (136-145) 10/04/19 11:46 10/04/19 BUN 8 mg/dL (7-18) 10/04/19 11:46 10/04/19 Creatinine 0.50 mg/dL (0.55-1.02) L 10/04/19 11:46 Glucose 95 mg/dL (74-106) 10/05/21 11:37 10/05/21 TSH 2.75 uIU/mL (0.358-3.74) 06/22/22 12:04 COAG Urine Test Negative Negative 02/18/25 12:50 02/18/25 Pre-Assessment Diagnosis/Proposed Procedure Planned Operative Procedure(s): COLONOSCOPY Anesthesia History 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 When Was Last Pacemaker Check QUESTION #4 FULL TEXT: You/Your Family Experience fever (hyperthermia) with Anesthesia Last Oral Intake Last Oral intake: Last Oral Intake NPO since 10:00 02/18/25 13:17 Meds taken in AM with sips of water? 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 Female Yes 02/14/25 08:38 HX of Motion Sickness No 02/14/25 08:38 HX of N/V After Surgery No 02/14/25 08:38 Non-Smoker Yes 02/14/25 08:38 Duration of Surgery greater No 02/14/25 08:38 than 60 minutes Number of Risk Factors 2 02/14/25 08:38 PONV Score Moderate Risk 02/14/25 08:38 Height & Weight Height & Weight: Anesthesia: Height & Weight Height 5 ft 5 in 02/18/25 13:17 Weight: 90 kg 02/18/25 13:17 Body Mass Index (BMI) 33.0 02/18/25 13:17 Respiratory Assessment Respiratory Assessment - winch truck operator: Respiratory Tract Infection Hx - winch truck operator Hx Respiratory Tract Infection No 02/14/25 08:38 STOP Sleep Apnea STOP Sleep Apnea - winch truck operator: STOP Sleep Apnea - winch truck operator Hx Hypertension No 02/14/25 08:38 Hx Sleep Apnea No 02/14/25 08:38 CPAP No 07/16/24 07:07 BIPAP No 12/16/14 13:22 Do you snore loudly (louder No 02/14/25 08:38 than talking or can be heard Do you often feel tired/ No 02/14/25 08:38 fatigued/ sleepy during daytime? Has anyone observed you stop No 02/14/25 08:38 breathing during sleep? STOP Results Negative 02/14/25 08:38 QUESTION #5 FULL TEXT : Do you snore loudly (louder than talking or can be heard through closeddoors)? 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 Specify any problems Hx of Preganancy in last 3 No 02/14/25 08:38 Months Nurse Filling Out Transfusion CPOWERS2 02/14/25 08:38 & Questions: Date: 02/14/25 02/14/25 08:38 Time: 08:39 02/14/25 08:38 Patient unable to answer at this time (ie. 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: /Reproductive Hx- winch truck operator Hx Now Gestational Age (in weeks): EDC: Hx Hx Para Hx Section SAB No 07/12/24 14:19 Active Medications Active Medications: Current Medications Generic Name Dose Route Start Last Admin Trade Name Freq PRN Reason Stop Dose Admin Lactated Ringer's 1,000 mls @ 15 mls/hr 02/18/25 13:30 02/18/25 13:26 IV 15 mls/hr .Q48H TAE Administration PFSH Medical History Wears glasses Anemia Gastric reflux Asthma Non-smoker History of Holter monitoring Tachycardia Hypothyroid Home Medications ?Medication ?Instructions ?Recorded ?Last Taken ?Type levothyroxine 50 mcg tablet 50 mcg PO DAILY Check with primary 11/19/19 02/17/25 History doctor cetirizine 10 mg tablet 10 mg PO DAILY 07/12/2401/22 History Saccharomyces boulardii 250 mg 250 mg PO BID #90 caps 10/22/24 02/17/25 Rx capsule (Florastor) omeprazole 20 mg capsule,delayed 20 mg PO DAILY 02/17/25 History release wheat dextrin 1 gram tablet 1 g PO BID 02/14/25 History (Benefiber (wheat dextrin)) Allergy/AdvReac Type Severity Reaction Status Date / Time Sulfa (Sulfonamide AdvReac Swelling Verified 02/18/25 13:14 Antibiotics) sulfamethoxazole (From AdvReac Nausea Verified 02/18/25 13:14 Bactrim) trimethoprim (From Bactrim) AdvReac Nausea Verified 02/18/25 13:14 Surgical History Hx of tonsillectomy Hx of abdominal surgery Previous section Social History Smoking Status: Never smoker Review of Systems (Anesthesia) ROS Narrative System reviewed and no additional complaints, except as documented. 02/18/25 1347 alex HART> Date _ Arnold Puente MD Cosigner Signature: Date CC: ~ Signed [facility]04-18-2025 NoteHNO ID: [id number] Author: ARCELIA WILKS APRN.CLAY THROWER Service: ? Author Type: Nurse Practitioner Type: Progress Notes Filed: 11/08/2024 10:02 Note Text: Web Manager offered: Patient declines. Usha is a 34 year old who presents for an annual gynecologic exam without complaints. 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 Recent genetics consult - heterozygous variant of unknown significance in one copy of her BRCA2 gene - no changes in medical management recommended at this time per genetics. Still get period: Yes, monthly. Has not had to use Provera lately. Bleeding amount bothersome: No Bleeding between periods: No Period symptoms: None Time with current partner: 18 years Number of lifetime partners: 1 control frequency: Always, condoms HPV vaccine: No; HPV:negative Last pap smear: 09/13/2021 History of abnormal pap: No, all prior PAP smears have been normal Bothersome pelvic pain: No Last mammogram: never OB History Gravida3 Para3 Term3 Preterm0 AB0 Living3 SAB0 IAB0 Ectopic0 Multiple0 Live Births3 Vacation Planner History LMP: 10/28/2024, Having periods Age at Menarche: 10 Age at First : Age at Menopause: Vacation Planner History Comments: Sexual Activity: Yes; Male Contraception: Condom Menstrual Tracking History Flowsheet Row Office Visit from 11/08/2024 in OB/Gynecology Period Cycle (Days) 30 Period Duration (Days) 6 Menstrual Flow Moderate PAST MEDICAL HISTORY Diagnosis Date BRCA2 gene mutation positive in female heterozygous variant of unknown significance in one copy of her BRCA2 gene C. difficile colitis GERD (gastroesophageal reflux disease) Hypothyroidism PCOS (polycystic ovarian syndrome) Tumor right ear BAP1-inactivated melanocytic tumor PAST SURGICAL HISTORY Procedure Laterality Date SNGL x3 ENDOMETRIAL BIOPSY 10/27/2021 @[facility] neg results HEMATOMA EVACUATION 11/2022 had infection in csection incision 6 weeks FAMILY HISTORY Problem Relation Age of Onset Anxiety disorder Mother OCD- Eating disorder other (basal cell carcinoma) Mother Hypertension Father Heart Father Valve Repair Anxiety disorder Sister ADD/ADHD Sister ADD/ADHD Brother GERD Brother Barretts Esophagus Brother Rheumatologic disease Brother ADD/ADHD Brother Lung Cancer Maternal Grandmother Hepatitis C Maternal Grandmother Pancreatic Cancer Maternal Grandfather Heart Failure Paternal Grandmother other (multiple myeloma [other]) Maternal Aunt Kidney Disease Maternal Aunt hereditary other (alport syndrome) Maternal Aunt other (lung mass) Maternal Uncle Alzheimer's Disease Paternal Uncle Kidney transplant Maternal cousin SOCIAL HISTORY Social History Tobacco Use Smoking status: Never Smokeless tobacco: Never Vaping Use Vaping status: Never Used Substance Use Topics Alcohol use: Not Currently Drug use: Never REVIEW OF SYSTEMS Abdomen: + recent C Diff infection Bladder: No dysuria, gross hematuria, urinary frequency, urinary urgency, or incontinence. Breast: No breast lumps, nipple d/c, overlying skin changes, redness or skin retraction. Allergies and current medication updated:Yes SENSITIVE EXAM: The sensitive examination was discussed with the Patient or Patient's Authorized Vegetable Sorter. As applicable, any other physician, advance practice provider, medical student, or other health professional student that will be observing or involved in the sensitive examination for educational or training purposes was discussed with the Patient or Authorized Vegetable Sorter. The Patient or Authorized Vegetable Sorter has agreed to proceed with the sensitive examination. (Sensitive examination includes inspection and/or palpation of the breasts, pelvis, prostate and anorectal regions). EXAM: BP 128/80 Ht 5' 4.764 (1.65m) Wt 228 lb (103.4kg) LMP 10/28/2024 BMI 38.22 kg/(m2). GENERAL: pleasant, female in no apparent distress HEENT: Normocephalic, atraumatic, mucus membranes moist, and no lesions NECK: Supple, full range of motion, no adenopathy, and thyroid normal DERMATOLOGY: Normal, without lesions, non-icteric, and non-hirsute BREAST: soft, non-tender, symmetric, no dominant mass, normal nipple-areolar complex, no lymphadenopathy, and no nipple discharge CHEST: Normal inspiratory effort ABDOMEN: soft, non-tender, and no masses PELVIC: external genitalia with mild erythema, normal Bartholin's glands, urethra, [place]'s glands, no vulvar lesions, no cervical lesions, + grade 1 cystocele, physiologic discharge present, normal appearing perineal body and perianal region BIMANUAL: uterus normal size, shape and consistency, no adnexal masses, and non-tender RECTOVAGINAL: deferred. NEURO: alert and oriented x3,exam grossly non-focal EXTREMITIES: normal ASSESSMENT/PLAN: 1) Health maintenance: Pap done with HPV. Mammogram starting age 40. Nutrition, exercise and routine health (more content not included)...[facility]04-18-2025 History of Present illness Narrative* Arcelia Wilks, [employer] TEACHER.CLAY THROWER - 11/08/2024 9:30 AM EDT Web Manager offered: Patient declines. Usha is a 34 year old who presents for an annual gynecologic exam without complaints. 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 Recent genetics consult - heterozygous variant of unknown significance in one copy of her BRCA2 gene - no changes in medical management recommended at this time per genetics. Still get period: Yes, monthly. Has not had to use Provera lately. Bleeding amount bothersome: No Bleeding between periods: No Period symptoms: None Time with current partner: 18 years Number of lifetime partners: 1 control frequency: Always, condoms HPV vaccine: No; HPV:negative Last pap smear: 09/13/2021 History of abnormal pap: No, all prior PAP smears have been normal Bothersome pelvic pain: No Last mammogram: never OB History Gravida3 Para3 Term3 Preterm0 AB0 Living3 SAB0 IAB0 Ectopic0 Multiple0 Live Births3 Vacation Planner History LMP: 10/28/2024, Having periods Age at Menarche: 10 Age at First : Age at Menopause: Vacation Planner History Comments: Sexual Activity: Yes; Male Contraception: Condom Menstrual Tracking History Flowsheet Row Office Visit from 11/08/2024 in OB/Gynecology Period Cycle (Days) 30 Period Duration (Days) 6 Menstrual Flow Moderate PAST MEDICAL HISTORY Diagnosis Date BRCA2 gene mutation positive in female heterozygous variant of unknown significance in one copy of her BRCA2 gene C. difficile colitis GERD (gastroesophageal reflux disease) Hypothyroidism PCOS (polycystic ovarian syndrome) Tumor right ear BAP1-inactivated melanocytic tumor PAST SURGICAL HISTORY Procedure Laterality Date SNGL x3 ENDOMETRIAL BIOPSY 10/27/2021 @[facility] neg results HEMATOMA EVACUATION 11/2022 had infection in csection incision 6 weeks FAMILY HISTORY Problem Relation Age of Onset Anxiety disorder Mother OCD- Eating disorder other (basal cell carcinoma) Mother Hypertension Father Heart Father Valve Repair Anxiety disorder Sister ADD/ADHD Sister ADD/ADHD Brother GERD Brother Barretts Esophagus Brother Rheumatologic disease Brother ADD/ADHD Brother Lung Cancer Maternal Grandmother Hepatitis C Maternal Grandmother Pancreatic Cancer Maternal Grandfather Heart Failure Paternal Grandmother other (multiple myeloma [other]) Maternal Aunt Kidney Disease Maternal Aunt hereditary other (alport syndrome) Maternal Aunt other (lung mass) Maternal Uncle Alzheimer's Disease Paternal Uncle Kidney transplant Maternal cousin SOCIAL HISTORY Social History Tobacco Use Smoking status: Never Smokeless tobacco: Never Vaping Use Vaping status: Never Used Substance Use Topics Alcohol use: Not Currently Drug use: Never REVIEW OF SYSTEMS Abdomen: + recent C Diff infection Bladder: No dysuria, gross hematuria, urinary frequency, urinary urgency, or incontinence. Breast: No breast lumps, nipple d/c, overlying skin changes, redness or skin retraction. Allergies and current medication updated:Yes SENSITIVE EXAM: The sensitive examination was discussed with the Patient or Patient's Authorized Vegetable Sorter. As applicable, any other physician, advance practice provider, medical student, or other health professional student that will be observing or involved in the sensitive examination for educational or training purposes was discussed with the Patient or Authorized Vegetable Sorter. The Patient or Authorized Vegetable Sorter has agreed to proceed with the sensitive examination. (Sensitive examination includes inspection and/or palpation of the breasts, pelvis, prostate and anorectal regions). EXAM: BP 128/80 Ht 5' 4.764 (1.65m) Wt 228 lb (103.4kg) LMP 10/28/2024 BMI 38.22 kg/(m^2). GENERAL: pleasant, female in no apparent distress HEENT: Normocephalic, atraumatic, mucus membranes moist, and no lesions NECK: Supple, full range of motion, no adenopathy, and thyroid normal DERMATOLOGY: Normal, without lesions, non-icteric, and non-hirsute BREAST: soft, non-tender, symmetric, no dominant mass, normal nipple-areolar complex, no lymphadenopathy, and no nipple discharge CHEST: Normal inspiratory effort ABDOMEN: soft, non-tender, and no masses PELVIC: external genitalia with mild erythema, normal Bartholin's glands, urethra, [place]'s glands, no vulvar lesions, no cervical lesions, + grade 1 cystocele, physiologic discharge present, normal appearing perineal body and perianal region BIMANUAL: uterus normal size, shape and consistency, no adnexal masses, and non-tender RECTOVAGINAL: deferred. NEURO: alert and oriented x3,exam grossly non-focal EXTREMITIES: normal ASSESSMENT/PLAN: 1) Health maintenance: Pap done with HPV. Mammogram starting age 40. Nutrition, exercise and routine health maintenance exams reviewed. Lipids/glucose: followed by PCP HPV vaccine: discussed, not interested 2) Contraception: condoms. 3) STD screening: Declined STD check. 4) Follow up one year or sooner as needed Arcelia Wilks APRN.CLAY THROWER [facility] Medical Records Department [address] [place] [address] History Physical Exam 07/16/24 0638 MR#: [id number] Acct: [id number] Name: USHA MATA Rep #: [id number] : 1990 34 From: Denver Flores DO PCP: ANA Gonzalez Status[facility] Location: [place] [address] HPI - General General Date of Admission: 07/16/24 Date of Service: 07/16/24 Chief Complaint: Abdominal pain and dysphagia HPI Narrative USHA MATA, is a 34 F who presents Chief Complaint: Indigestion Details: USHA MATA, is a 34 F who presents to the office today for establishment with [facility]. Pt has no pertinent medical hx. She is is here today for evaluation of epigastric pain since March 2024. She was eating a sloppy laura and almost immediately after eating it she had severe indigestion. She has never had heartburn like this before. She did have some heartburn during her pregnancies. Her PCP put her on 20 mg of omeprazole daily which relieved the majority of his symptoms. She continues to feel a lump in her throat when she swallows. It feels as if food is getting stuck in her esophagus. She has never had an EGD or colonoscopy. New omeprazole 20 mg PO BID 90 caps 2RF PFSH Medical History Wears glasses Anemia Gastric reflux Asthma Non-smoker History of Holter monitoring Tachycardia Hypothyroid Home Medications ???Medication ???Instructions ???Recorded ???Last Taken ???Type levothyroxine 50 mcg tablet 50 mcg PO DAILY Check with primary 11/19/19 Unknown History doctor ibuprofen 600 mg tablet 600 mg PO TID PRN Pain Score 11/20/19 Unknown Rx -05/02 #30 tabs cetirizine 10 mg tablet 10 mg PO DAILY 07/12/24 Unknown History omeprazole 20 mg capsule,delayed 20 mg PO DAILY 07/12/24 Unknown History release Allergy/AdvReac Type Severity Reaction Status Date / Time Sulfa (Sulfonamide AdvReac Swelling Verified 07/12/24 14:18 Antibiotics) sulfamethoxazole (From AdvReac Nausea Verified 07/12/24 14:18 Bactrim) trimethoprim (From Bactrim) AdvReac Nausea Verified 07/12/24 14:18 Surgical History Hx of tonsillectomy Hx of abdominal surgery Previous section Social History Smoking Status: Never smoker ROS Constitutional Constitutional: Denies fatigue, fever(s), poor appetite, weight gain or weight loss Gastrointestinal Gastrointestinal: Denies belching, bloating, change in bowel habits, change in stool character, chewing difficulty, coffee ground emesis, constipation, cramping, diarrhea, dyspepsia, dysphagia, early satiety, excessive flatus, fecal incontinence, heartburn, hematemesis, hematochezia, hemorrhoids, loose stools, melena, nausea, odynophagia, rectal bleeding, tenesmus, vomiting or weight changes Vital Signs Vital Signs Vital Signs: 07/16/24 06:05 07/16/24 06:05 07/16/24 06:26 Temperature 99.1 F 99.1 F Temperature Source Temporal Pulse Rate 98 98 Respiratory Rate 16 16 Respiratory Pattern Normal Blood Pressure 136/80 H 136/80 H Blood Pressure Mean 98 Blood Pressure Source Monitor Blood Pressure Position Semi-Fowlers Blood Pressure Location Left Arm Pulse Ox 100 100 Oxygen Delivery Method Room Air Weight Weight: 242 lb 1.081 oz Body Mass Index (BMI) 40.2 Physical Exam Const alert, oriented x3, no apparent distress and healthy appearing General Appearance: cooperative GI normal to inspection, nondistended, normoactive bowel sounds, soft to palpation, non-tender and non- distended Percussion: normal to percussion Rectal Exam: deferred Results Lab / Micro Data Labs: Laboratory Results - last 24 hr 07/16/24 05:40: Urine Test Negative Assessment Plan Assessment/Plan (1) Abdominal pain: (2) Dysphagia: PLAN: Plan Assessment and Plan Assessment and Plan (1) Gastroesophageal reflux disease: Plan: THis is a healthy 34 yo female pt here today for establishment with [facility]. For a month now she has been having severe heartburn. Her PCP put her on a course of omeprazole 20 mg daily. This did help but she continues to have sensation of a bolus in her throat and dysphagia. She will undergo EGD to rule out stricture, ulcer or GERD. I will increase her omeprazole to 20 mg BID. She is agreeable to this plan -EGD -increase omeprazole to BID -f/u after procedure Medications: New omeprazole 20 mg PO BID 90 caps 2RF 07/16/24 0640 Cosigner Signature (if applicable): CC: ANA Gonzalez; Denver Friend, [facility]03-20-2024 History of Present illness Narrative * Sheyla Newsome MD - 10/11/2023 2:21 PM EDT Usha is a 33 year old who presents for an annual gynecologic exam without complaints. Hashad some irregular bleeding. Last menses more normal flow but had some increased cramping. Menses: irregular. Contraception: condoms HPV vaccine: No Last Pap: normal HPV: negative History of abnormal pap: No Last mammogram: never Sexually active: Yes OB History T3 L3 SAB0 IAB0 Ectopic0 Multiple0 Live Births3 Vacation Planner History LMP: 09/30/2023 (Exact Date), Having periods Age at Menarche: Age at First : Age at Menopause: Vacation Planner History Comments: Sexual Activity: Yes; Male Contraception: Condom PAST MEDICAL HISTORY Diagnosis Date Hypothyroidism PCOS (polycystic ovarian syndrome) PAST SURGICAL HISTORY Procedure Laterality Date SNGL x3 ENDOMETRIAL BIOPSY 10/27/2021 @[facility] neg results HEMATOMA EVACUATION 11/2022 had infection in csection incision 6 weeks FAMILY HISTORY Problem Relation Age of Onset Anxiety disorder Mother OCD- Eating disorder Hypertension Father Heart Father Anxiety disorder Sister ADD/ADHD Sister ADD/ADHD Brother other (meres disease) Brother ADD/ADHD Brother SOCIAL HISTORY Social History Tobacco Use Smoking status: Never Smokeless tobacco: Never Vaping Use Vaping Use: Never used Substance Use Topics Alcohol use: Not Currently Drug use: Never REVIEW OF SYSTEMS Abdomen: No abdominal pain, nausea, vomiting, diarrhea, or constipation. No bloating, early satiety, indigestion, or increased flatulence. Bladder: No dysuria, gross hematuria, urinary frequency, urinary urgency, or incontinence. Breast: No breast lumps, nipple d/c, overlying skin changes, redness or skin retraction. Allergies and current medication updated:Yes EXAM: BP 144/88 Ht 5' 5 (1.65m) Wt 249 lb (112.9kg) LMP 09/30/2023 BMI 41.44 kg/(m^2). GENERAL: pleasant, female in no apparent distress HEENT: Normocephalic, atraumatic, mucus membranes moist, and no lesions NECK: Supple, full range of motion, no adenopathy, and thyroid normal DERMATOLOGY: Normal, without lesions, non-icteric, and non-hirsute BREAST: soft, non-tender, symmetric, no dominant mass, normal nipple-areolar complex, no lymphadenopathy, and no nipple discharge CHEST: Normal inspiratory effort ABDOMEN: soft, non-tender, and no masses PELVIC: external genitalia normal, normal Bartholin's glands, urethra, [place]'s glands, no vulvar lesions, no cervical lesions, good vaginal support, physiologic discharge present, normal appearing perineal body and perianal region BIMANUAL: uterus normal size, shape and consistency, no adnexal masses, and non-tender RECTOVAGINAL: deferred. NEURO: alert and oriented x3,exam grossly non-focal EXTREMITIES: normal ASSESSMENT/PLAN: 1) Health maintenance: Pap/HPV up to date. Mammogram starting age 40. 2) Contraception: condoms. Contraceptive options reviewed and information provided. 3) STD screening: Declined STD check. 4) Follow up one year or sooner as needed Sheyla Newsome MD documented in this encounter[facility] NotePap Smear Specimen AdequacyFebruary 2021 5:15pmCommentSatisfactory for evaluation. No endocervical component is identified.[facility] A#[id number] Work Phone: Comment on above:Satisfactory for evaluation. No endocervical component is identified.Consult note Author Justin Baker [facility] Note Date/Time February 18, 2025 3:10 pm [facility] Medical Records Department [address] [place] [address] Anesthesia Postop Eval I 02/18/25 1509 MR#: [id number] Acct: [id number] Name: USHA MATA Rep #:[id number] : 1990 34 From: Justin Baker CRNA PCP: ANA Gonzalez Status:REG SDC Y Race: C Location: [place] [address] Anesthesia: Postop Eval I Current Vital Signs Temperature: 97.3 F Pulse Rate: 55 Blood Pressure: 116/74 Respiratory Rate: 14 Pulse Ox: 99 Oxygen Delivery Method: Room Air Assessment Airway patent: Yes Spontaneous unlabored respirations: Yes Mental status: Awake nausea: No Vomiting: No Anesthesia Complication: No Fluid Hydration Crystalloid volume administer (ml): 600 Total IV fluid infused: 600 Progress Note Anesthesia document: Postop Eval 1 completed: Yes 02/18/25 1510 <Electronically signed by Justin zeng CRNA> Date _ Justin Baker CRNA Cosigner Signature: Date CC: ~ Signed [facility] Work Phone: Evaluation noteNo assessment information available [facility] Work Phone: Evaluation note* Diagnosis Encounter for immunization- Primary Need for other specified prophylactic vaccination against single bacterial disease [facility]* Diagnosis Encounter for immunization- Primary Need for other specified prophylactic vaccination against single bacterial disease [facility]* Diagnosis Encounter for gynecological examination (general) (routine) without abnormal findings- Primary [facility]* Diagnosis At risk for genetic disorder Family history of pancreatic cancer Family history of malignant neoplasm of gastrointestinal tract [facility]* Diagnosis Encounter for gynecological examination (general) (routine) without abnormal findings- Primary Screening for cervical cancer Screening for malignant neoplasm of the cervix Encounter for screening for human papillomavirus (HPV) Special screening examination for human papillomavirus (HPV) documented in this encounter [facility] and [facility] note Author Denver Flores [facility] Note Date/Time February 18, 2025 2:34 pm [facility] Medical Records Department [address] [place] [address] History & Physical Exam 02/18/25 1432 MR#: [id number] Acct: [id number] Name: USHA MATA Rep #:[id number] : 1990 34 From: Denver Flores DO PCP: ANA Gonzalez Status[facility] Location: [place] [address] HPI - General General Date of Admission: 02/18/25 Date of Service: 02/18/25 Chief Complaint: Diarrhea HPI Narrative USHA MATA, is a 34 F who presents today for the evaluation of recurring diarrhea. She has a past medical history of C. difficile infection from unknowncause. She completed treatment for C. difficile and is currently on a probioticon a daily basis. She comes in today for colonoscopy. [facility] Medical History Wears glasses Anemia Gastric reflux Asthma Non-smoker History of Holter monitoring Tachycardia Hypothyroid Home Medications ?Medication ?Instructions ?Recorded ?Last Taken ?Type levothyroxine 50 mcg tablet 50 mcg PO DAILY Check with primary 11/19/19 02/17/25 History doctor cetirizine 10 mg tablet 10 mg PO DAILY 07/12/2401/22 History Saccharomyces boulardii 250 mg 250 mg PO BID #90 caps 10/22/24 02/17/25 Rx capsule (Florastor) omeprazole 20 mg capsule,delayed 20 mg PO DAILY 02/17/25 History release wheat dextrin 1 gram tablet 1 g PO BID 02/14/25 History (Benefiber (wheat dextrin)) Allergy/AdvReac Type Severity Reaction Status Date / Time Sulfa (Sulfonamide AdvReac Swelling Verified 02/18/25 13:14 Antibiotics) sulfamethoxazole (From AdvReac Nausea Verified 02/18/25 13:14 Bactrim) trimethoprim (From Bactrim) AdvReac Nausea Verified 02/18/25 13:14 Surgical History Hx of tonsillectomy Hx of abdominal surgery Previous section Social History Smoking Status: Never smoker ROS Constitutional Constitutional: Denies fatigue, fever(s), poor appetite, weight gain or weight loss Gastrointestinal Gastrointestinal: Denies belching, bloating, change in bowel habits, change in stool character, chewing difficulty, coffee ground emesis, constipation, cramping, diarrhea, dyspepsia, dysphagia, early satiety, excessive flatus, fecalincontinence, heartburn, hematemesis, hematochezia, hemorrhoids, loose stools, melena, nausea, odynophagia, rectal bleeding, tenesmus, vomiting or weight changes Vital Signs Vital Signs Vital Signs: 02/18/25 13:17 02/18/25 13:17 02/18/25 13:47 Temperature 97.5 F L 97.5 F L Temperature Source Temporal Pulse Rate 63 63 Respiratory Rate 18 18 Respiratory Pattern Normal Blood Pressure 135/80 H 135/80 H Blood Pressure Mean 98 Blood Pressure Source Monitor Blood Pressure Position Semi-Fowlers Blood Pressure Location Left Arm Pulse Ox 100 100 Oxygen Delivery Method Room Air Room Air Weight Weight: 198 lb 6.656 oz Body Mass Index (BMI) 33.0 Physical Exam Const alert, oriented x3, no apparent distress and healthy appearing General Appearance: cooperative GI normal to inspection, nondistended, normoactive bowel sounds, soft to palpation,non-tender and non-distended Percussion: normal to percussion Rectal Exam: deferred Results Lab / Micro Data Labs: Laboratory Results - last 24 hr 02/18/25 12:50: Urine Test Negative Assessment & Plan Assessment/Plan (1) Loose stools: PLAN: She will undergo colonoscopy. She was explained alternatives, risk and benefits include not withstanding bleeding, infection, sepsis, perforation, needfor emergent surgery and . She will have an ASA of 3. 02/18/25 1434 <Electronically signed by Denver Flores DO> Cosigner Signature (if applicable): CC: ANA Gonzalez; Denver Flores DO~ Signed [facility] Work Phone: [facility] for referral (narrative)No reason for referral information availableWMercy Hospital Work Phone: Reason for visit Narrative* Referral (Routine) - Open Specialty Diagnoses / Procedures Referred By Contac t Referred To Contact Diagnoses At risk for genetic disorder Family history of pancreatic cancer Procedures Genetic Sendout: Custom [place] [address] Phone: tel: fax: Referral ID Status Reason Start Date Expiration Date V isits Requested Visits Authorized [id number] Open Specialty Services Required 10/09/2024 10/09/2025 1 1 [facility] Advance Directives Advance Directive Response Recorded Date/ Time Advance Directives No December 16 5 1:22pm Living Will No November 19, 2019 12:48pm Power of Training Facilitator No November 18 12:48pm Advance Directive Response Recorded Date/ Time Advance Directives No December 16 12:22pm Living Will No November 19, 2019 11:48am Power of Training Facilitator No November 18 11:48am Advance Directive Response Recorded Date/ Time Advance Directives No December 16 5 1:22pm Advance Directive Response Recorded Date/ Time Do you have a Healthcare Power of Training Facilitator? No February 14, 2025 8:38am Advance Directives No December 16 1:22pm Family History Cancer Status:Active Comments:Mother. skin Diabetes Mellitus Type II Status:Active Commen ts:grandparents Hypertension Status:Active Lung Cancer Status:Active Comments:grandma Prostate Cancer Status:Active Comments:grandpa Cancer Status:Active Comments:Mother. skin Diabetes Mellitus Type II Status:Active Commen ts:grandparents Hypertension Status:Active Lung Cancer Status:Active Comments:grandma Prostate Cancer Status:Active Comments:grandpa Cancer Status:Active Comments:Mother. skin Diabetes Mellitus Type II Status:Active Commen ts:grandparents Hypertension Status:Active Lung Cancer Status:Active Comments:grandma Prostate Cancer Status:Active Comments:grandpa Cancer Status:Active Comments:Mother. skin Diabetes Mellitus Type II Status:Active Commen ts:grandparents Hypertension Status:Active Lung Cancer Status:Active Comments:grandma Prostate Cancer Status:Active Comments:grandpa Cancer Status:Active Comments:Mother. skin Diabetes Mellitus Type II Status:Active Commen ts:grandparents Hypertension Status:Active Lung Cancer Status:Active Comments:grandma Prostate Cancer Status:Active Comments:grandpa Cancer Status:Active Comments:Mother. skin Diabetes Mellitus Type II Status:Active Commen ts:grandparents Hypertension Status:Active Lung Cancer Status:Active Comments:grandma Prostate Cancer Status:Active Comments:grandpa Cancer Status:Active Comments:Mother. skin Diabetes Mellitus Type II Status:Active Commen ts:grandparents Hypertension Status:Active Lung Cancer Status:Active Comments:grandma Prostate Cancer Status:Active Comments:grandpa Cancer Status:Active Comments:Mother. skin Diabetes Mellitus Type II Status:Active Commen ts:grandparents Hypertension Status:Active Lung Cancer Status:Active Comments:grandma Prostate Cancer Status:Active Comments:grandpa Cancer Status:Active Comments:Mother. skin Diabetes Mellitus Type II Status:Active Commen ts:grandparents Hypertension Status:Active Lung Cancer Status:Active Comments:grandma Prostate Cancer Status:Active Comments:grandpa Cancer Status:Active Comments:Mother. skin Diabetes Mellitus Type II Status:Active Commen ts:grandparents Hypertension Status:Active Lung Cancer Status:Active Comments:grandma Prostate Cancer Status:Active Comments:grandpa Cancer Status:Active Comments:Mother. skin Diabetes Mellitus Type II Status:Active Commen ts:grandparents Hypertension Status:Active Lung Cancer Status:Active Comments:grandma Prostate Cancer Status:Active Comments:grandpa Cancer Status:Active Comments:Mother. skin Diabetes Mellitus Type II Status:Active Commen ts:grandparents Hypertension Status:Active Lung Cancer Status:Active Comments:grandma Prostate Cancer Status:Active Comments:grandpa Cancer Status:Active Comments:Mother. skin Diabetes Mellitus Type II Status:Active Commen ts:grandparents Hypertension Status:Active Lung Cancer Status:Active Comments:grandma Prostate Cancer Status:Active Comments:grandpa Cancer Status:Active Comments:Mother. skin Diabetes Mellitus Type II Status:Active Commen ts:grandparents Hypertension Status:Active Lung Cancer Status:Active Comments:grandma Prostate Cancer Status:Active Comments:grandpa Cancer Status:Active Comments:Mother. skin Diabetes Mellitus Type II Status:Active Commen ts:grandparents Hypertension Status:Active Lung Cancer Status:Active Comments:grandma Prostate Cancer Status:Active Comments:grandpa Cancer Status:Active Comments:Mother. skin Diabetes Mellitus Type II Status:Active Commen ts:grandparents Hypertension Status:Active Lung Cancer Status:Active Comments:grandma Prostate Cancer Status:Active Comments:grandpa Cancer Status:Active Comments:Mother. skin Diabetes Mellitus Type II Status:Active Commen ts:grandparents Hypertension Status:Active Lung Cancer Status:Active Comments:grandma Prostate Cancer Status:Active Comments:grandpa Cancer Status:Active Comments:Mother. skin Diabetes Mellitus Type II Status:Active Commen ts:grandparents Hypertension Status:Active Lung Cancer Status:Active Comments:grandma Prostate Cancer Status:Active Comments:grandpa Cancer Status:Active Comments:Mother. skin Diabetes Mellitus Type II Status:Active Commen ts:grandparents Hypertension Status:Active Lung Cancer Status:Active Comments:grandma Prostate Cancer Status:Active Comments:grandpa Cancer Status:Active Comments:Mother. skin Diabetes Mellitus Type II Status:Active Commen ts:grandparents Hypertension Status:Active Lung Cancer Status:Active Comments:grandma Prostate Cancer Status:Active Comments:grandpa Summary Purpose Chief Complaint and Reason for Visit Chief Complaint Admit Date INT LABSPEC December 13, 2024 9:39a m Reason for Visit Admit Date Loose stools February 18, 2025 12:4 3pm Additional Source Comments Goals (unrecognized section and content) Goals may be documented in a n alternate sectionGoals may be documented in an alternate sectionGoals may be documented in an alternate section Source Comments (unrecognize d section and content) In the event this informatio n is protected by the Federal Confidentiality of Alcohol and Drug Abuse Patient Records regulations: The Federal rules restrict any use of the information to criminally investigate or prosecute any alcohol or drug abuse patient.[facility] the event this information is protected by the Federal Confidentiality of Alcohol and Drug Abuse Patient Records regulations: The Federal rules restrict any use of the information to criminally investigate or prosecute any alcohol or drug abuse patient.[facility] the event this information is protected by the Federal Confidentiality of Alcohol and Drug Abuse Patient Records regulations: The Federal rules restrict any use of the information to criminally investigate or prosecute any alcohol or drug abuse patient.[facility] the event this information is protected by the Federal Confidentiality of Alcohol and Drug Abuse Patient Records regulations: The Federal rules restrict any use of the information to criminally investigate or prosecute any alcohol or drug abuse patient.[facility] Hospital[facility] the event this information is protected by the Federal Confidentiality of Alcohol and Drug Abuse Patient Records regulations: The Federal rules restrict any use of the information to criminally investigate or prosecute any alcohol or drug abuse patient.[facility] Hospital[facility] the event this information is protected by the Federal Confidentiality of Alcohol and Drug Abuse Patient Records regulations: The Federal rules restrict any use of the information to criminally investigate or prosecute any alcohol or drug abuse patient.[facility] Care Teams (unrecognized sec tion and content) Auditor Relationship Specialty Start Date End Date Adolfo Mcdermott MD PCP - General Family Medicine 05/07/14 Auditor Relationship Specialty Start Date End Date Adolfo Mcdermott MD PCP - General Family Medicine 05/07/14 Auditor Relationship Specialty Start Date End Date Adolfo Mcdermott MD PCP - General Family Medicine 05/07/14 Auditor Relationship Specialty Start Date End Date Adolfo Mcdermott MD PCP - General Family Medicine 05/07/14 Auditor Relationship Specialty Start Date End Date Gayla Navarro PA-C [address] [place] [id number] PCP - General Family Medicine 09/09/24 Ana Maria Dalton PA-C [address] [facility] [place] [id number] Family Medicine 09/03/24 Arcelia Bishop, [facility] [place] [address] Genetic Counselor Genetics 10/09/24 Auditor Relationship Specialty Start Date End Date Adolfo Mcdermott MD PCP - General Family Medicine 05/07/14 Team Status: Active Member Role Status Dates Dr. Arcelia March MD Family Provider Active Gayla Navarro PA, PA Primary Care Provider Active Team Status: Inactive Member Role Status Dates Gayla Navarro PA, PA Primary Care Provider Active Start: December 13, 2024 End: December 13, 2024 ANA Phan Attending Provider Active Start: December 13, 2024 End: December 13, 2024 Jannette Saba PA Referring Provider Active Start: December 13, 2024 End: December 13, 2024 Team Status: Active Member Role/Relationship Status Dates Gayla Navarro PA, PA Primary Care Provider Active Team Status: Inactive Member Role/Relationship Status Dates Gayla Navarro PA, PA Primary Care Provider Active Start: December 13, 2024 End: December 13, 2024 ANA Phan Attending Provider Active Start: December 13, 2024 End: December 13, 2024 Jannette Saba PA Referring Provider Active Start: December 13, 2024 End: December 13, 2024 Team Status: Inactive Member Role/Relationship Status Dates Gayla Naavrro PA, PA Primary Care Provider Active Start: February 18, 2025 End: February 18, 2025 Gayla Navarro PA, PA Referring Provider Active Start: February 18, 2025 End: February 18, 2025 Dr. Denver Flores DO Attending Provider Active Start: February 18, 2025 End: February 18, 2025 Team Status: Active Member Role/Relationship Status Dates Gayla Navarro PA, PA Primary Care Provider Active Start: February 18, 2025 Gayla Navarro PA, PA Referring Provider Active Start: February 18, 2025 Dr. Denver Flores DO Attending Provider Active Start: February 18, 2025 Dr. Denver Friend , DO Other Provider Active St art: February 18, 2025 Reason for Visit (unrecogniz ed section and content) Reason Comments Imm/Inj Reason Comments Yearly Exam Reason Comments Refill Request INFORMATION SOURCE (unrecogn ized section and content) DATE CREATED AUTHOR 08/23/2024 [facility] DATE CREATED AUTHOR AUTHOR'S ORGANIZ ATION 10/18/2024 [facility] DATE CREATED AUTHOR AUTHOR'S ORGANIZ ATION 11/01/2024 [facility] DATE CREATED AUTHOR AUTHOR'S ORGANIZ ATION 11/27/2024 [facility] DATE CREATED AUTHOR AUTHOR'S ORGANIZ ATION 11/27/2024 [facility] DATE CREATED AUTHOR AUTHOR'S ORGANIZ ATION 02/17/2025 [facility] FOR RECORDS PERTAINING TO PATIENTS WHO ARE OR HAVE BEEN ENROLLED IN A CHEMICAL DEPENDENCY/SUBSTANCEABUSE PROGRAM, SOME INFORMATION MAY BE OMITTED. This clinical summary was aggregated from multiple sources. Caution should be exercised in using it in the provision of clinical care. This summary normalizes information from multiple sources, and as a consequence, information in this document may materially change the coding, format and clinical context of patient data. In addition, data may be omitted in some cases. CLINICAL DECISIONS SHOULD BE BASED ON THE PRIMARY CLINICAL RECORDS. [employer] provides no warranty or guarantee of the accuracy or completeness of information in this document.
== END 2025-02-18 15:52 | disposition home or self-care (01) ==
LOC: EN 12:43 → AC 12:44
PROVIDERS: Anesthesiology; PCP Physician Assistant; Referring Provider Physician Assistant; Visit Provider Internal Medicine Gastroenterology
PROC: 0DJD8ZZ Inspection of Lower Intestinal Tract, Via Natural or Artificial Opening Endoscopic (ICD-10-PCS; CPT 45378; principal; 2025-02-18 13:55)
DX: K52.9 Noninfective gastroenteritis and colitis, unspecified (principal); K57.30 Diverticulosis of large intestine without perforation or abscess without bleeding; K21.9 Gastro-esophageal reflux disease without esophagitis; Z79.899 Other long term (current) drug therapy; Z86.19 Personal history of other infectious and parasitic diseases
CPT/HCPCS: 45380; 81025; 88305